=== PATIENT | female | born 1980 | race Caucasian/White ===

== ENCOUNTER → 2018-01-21 10:46 | Outpatient (REF) | payer MEDICAID, SELFPAY ==
[2018-01-21 21:21] LABS: HCT 38.6 % (36.0-46.0); HGB 13.1 g/dL (12.0-15.5); Mean Corp. HGB Concentration 33.9 g/dL (32.0-36.0); Mean Corpuscular Hemoglobin 30.8 pg (27.0-33.0); Mean Corpuscular Volume 90.6 fL (80-95); Mean Platelet Volume 10.2 fL (8.0-11.0); Platelet Count 279 x1000/uL (130-400); RBC 4.26 m/cumm (4.00-5.20); RBC Distribution Width 12.2 % (11.7-14.6); White Blood Cell Count 5.71 k/cumm (4.4-10.8)
[2018-01-21 21:56] LABS: TSH 1.14 uIU/mL (0.358-3.74)
== END ==
LOC: NCHCN 10:46
PROVIDERS: PCP Nurse Practitioner Family; Visit Provider Nurse Practitioner Family
DX: R53.83 Other fatigue (principal)
CPT/HCPCS: 85027; 84443

== ENCOUNTER 2019-01-31 11:08 | Outpatient (REF) | payer MEDICAID, SELFPAY ==
[2019-01-31 22:04] LABS: HCT 39.3 % (36.0-46.0); HGB 13.4 g/dL (12.0-15.5); Mean Corp. HGB Concentration 34.1 g/dL (32.0-36.0); Mean Corpuscular Hemoglobin 30.7 pg (27.0-33.0); Mean Corpuscular Volume 89.9 fL (80-95); Platelet Count 293 x1000/uL (130-400); RBC 4.37 m/cumm (4.00-5.20); RBC Distribution Width 12.3 % (11.7-14.6); White Blood Cell Count 5.17 k/cumm (4.4-10.8)
[2019-01-31 22:35] LABS: ALT 22 U/L (12-78); AST 18 U/L (15-37); Albumin 3.7 g/dL (3.4-5.0); Alkaline Phosphatase 73 U/L (46-116); Anion Gap 9.1 mmol/L (3-11); BUN 11 mg/dL (7-18); Bilirubin, Total 0.2 mg/dL (0.2-1.0); CO2 25.9 mmol/L (21.0-32.0); CREATININE 0.76 mg/dL (0.55-1.02); Calcium 8.4 mg/dL (8.5-10.1); Calculated LDL 90 mg/dL; Chloride 105 mmol/L (98-107); Cholesterol 150 mg/dL (50-200); Glucose 78 mg/dL (70-100); HDL Cholesterol 50 mg/dL (40-60); Potassium 3.9 mmol/L (3.5-5.1); Sodium 140 mmol/L (136-145); TSH 1.96 uIU/mL (0.36-3.74); Triglyceride 51 mg/dL (30-150)
== END 2019-01-31 11:28 ==
LOC: NCHCN 11:08
PROVIDERS: PCP Nurse Practitioner Family; Visit Provider Nurse Practitioner Family
DX: R53.83 Other fatigue (principal); Z83.49 Family history of other endocrine, nutritional and metabolic diseases
CPT/HCPCS: 80053; 80061; 83721; 85027; 84443

== ENCOUNTER 2020-09-24 12:58 | Outpatient (REF) | payer MEDICAID, SELFPAY ==
[2020-09-24 14:09] LABS: TSH (W/Ref FT4) 1.98 uIU/mL (0.36-3.74)
[2020-09-24 14:18] LABS: Vitamin D 25 Total 22.5 ng/mL (30-100)
== END 2020-09-24 12:59 | disposition home or self-care (01) ==
LOC: NCHCN 12:58
PROVIDERS: PCP Nurse Practitioner Family; Visit Provider Nurse Practitioner Family
DX: R53.83 Other fatigue (principal); M79.10 Myalgia, unspecified site; E55.9 Vitamin D deficiency, unspecified
CPT/HCPCS: 82306; 84443

== ENCOUNTER 2020-10-30 13:24 | Outpatient (REF) | payer MEDICAID, SELFPAY ==
[2020-10-31 11:02] LABS: HIV-1/2 Ag & Ab Screen Negative (Negative)
[2020-10-31 11:18] LABS: Hepatitis C Ab w Rflx HCV PCR Negative (Negative)
[2020-11-01 01:10] LABS: Vitamin D 25 Total 27.7 ng/mL (30-100)
== END 2020-10-30 13:25 | disposition home or self-care (01) ==
LOC: NCHCN 13:24
PROVIDERS: PCP Nurse Practitioner Family; Visit Provider Nurse Practitioner Family
DX: E55.9 Vitamin D deficiency, unspecified (principal); Z11.59 Encounter for screening for other viral diseases; Z11.4 Encounter for screening for human immunodeficiency virus [HIV]
CPT/HCPCS: 82306; 86803; 87389

== ENCOUNTER 2021-02-26 16:33 | Outpatient (REF) | payer MEDICAID, SELFPAY ==
--- NOTE | 2021-02-26 13:45 | PAPFT_PTH ---
PATIENT: Cathy Chow LOC: [facility]#:[id number] AGE/SX: 41/F ROOM: RE02/26/[address]: Shadia Garcia : 1980 BED: DIS: 02/26/2021 SPEC #: [id number] RECD: 02/27/21 12:56 STATUS: NICOLLE REDee #: [id number] DARON: 02/26/21 13:[address]: Shadia Garcia [facility] Cytology RECD BY: Tonia Garibay Tissues: 1 - CX/ENDOCX FOR PAP SMEARS Procedures: PAP THIN PREP/UVM Screening HPV DNA PROBE Comments: [id number]
[2021-02-26 21:34] LABS: Hemoglobin A1C 5.2 % (<5.7)
[2021-02-28 01:33] LABS: Vitamin D 25 Total 43.5 ng/mL (30-100)
== END 2021-02-26 16:34 | disposition home or self-care (01) ==
LOC: NCHCN 16:33
PROVIDERS: PCP Nurse Practitioner Family; Referring Provider Nurse Practitioner Family; Visit Provider Nurse Practitioner Family
DX: E55.9 Vitamin D deficiency, unspecified (principal); R63.1 Polydipsia; R35.8 Other polyuria; Z12.4 Encounter for screening for malignant neoplasm of cervix; Z01.419 Encounter for gynecological examination (general) (routine) without abnormal findings; Z11.51 Encounter for screening for human papillomavirus (HPV)
CPT/HCPCS: 82306; 88142; 83036; 87624

== ENCOUNTER 2021-03-28 11:47 | Outpatient (REF) | payer MEDICAID, SELFPAY ==
[2021-03-28 14:26] LABS: Abs Immature Grans 0.01 10^3/uL (0.0-0.06); Absolute Basophil Count 0.06 10^3/uL (0.0-0.2); Absolute Eosinophil Count 0.23 10^3/uL (0.0-0.7); Absolute Lymphocyte Count 2.08 10^3/uL (1.2-3.4); Absolute Monocyte Count 0.39 10^3/uL (0.1-0.8); Absolute Neutrophil Count 3.65 10^3/uL (1.2-6.7); Basophils % 0.9; Eosinophils % 3.6; HCT 43.6 % (36.0-46.0); HGB 14.4 g/dL (11.2-15.7); Immature Grans % 0.2; Lymphocytes % 32.4; MCV 90.8 fL (80-95); MPV 9.5 fL (8.0-11.0); Monocytes % 6.1; Neutrophils % 56.8; Nucleated RBC 0 %; Platelet Count 321 10^3/uL (130-400); RDW 12.1 % (11.7-14.6); RDW-SD 40.4 fL; WBC 6.42 10^3/uL (4.4-10.8)
[2021-03-28 14:46] LABS: Lipase 91 U/L (73-393)
[2021-03-28 15:01] LABS: Bilirubin Negative (Negative); Blood Negative (Negative); Clarity Clear (Clear); Glucose Negative (Negative); Ketones Negative (Negative); Leukocyte Esterase Negative (Negative); Nitrite Negative (Negative); Specific Gravity 1.015 (1.005-1.025); Urobilinogen 0.2 EU/dL (Up TO 0.2)
[2021-03-29 19:06] LABS: ALT 25 U/L (14-59); AST 18 U/L (15-37); Albumin 4.2 g/dL (3.4-5.0); Alkaline Phosphatase 82 U/L (46-116); Anion Gap 7.6 mmol/L (3-11); BUN 11 mg/dL (7-18); Bilirubin, Total 0.3 mg/dL (0.2-1.0); CO2 29.4 mmol/L (21.0-32.0); CREATININE 0.8 mg/dL (0.55-1.02); Calcium 9.2 mg/dL (8.5-10.1); Chloride 104 mmol/L (98-107); Glucose 76 mg/dL (74-106); Potassium 3.9 mmol/L (3.5-5.1); Sodium 141 mmol/L (136-145); Total Protein 7.8 g/dL (6.4-8.2)
== END 2021-03-28 11:48 | disposition home or self-care (01) ==
LOC: NCHCN 11:47
PROVIDERS: PCP Nurse Practitioner Family; Visit Provider Nurse Practitioner Family
DX: R10.30 Lower abdominal pain, unspecified (principal)
CPT/HCPCS: 80053; 83690; 81003; 85025

== ENCOUNTER 2023-11-30 16:19 | Outpatient (REF) | payer MEDICAID, SELFPAY ==
[2023-11-30 21:33] LABS: Abs Immature Grans 0.01 10^3/uL (0.0-0.06); Absolute Basophil Count 0.06 10^3/uL (0.0-0.2); Absolute Eosinophil Count 0.16 10^3/uL (0.0-0.7); Absolute Lymphocyte Count 1.97 10^3/uL (1.2-3.4); Absolute Monocyte Count 0.47 10^3/uL (0.1-0.8); Absolute Neutrophil Count 4.84 10^3/uL (1.2-6.7); Basophils % 0.8 %; Eosinophils % 2.1 %; HCT 42.5 % (36.0-46.0); HGB 14.6 g/dL (11.2-15.7); Immature Grans % 0.1 %; Lymphocytes % 26.2 %; MCH 30.4 pg (27.0-33.0); MCHC 34.4 % (32.0-36.0); MCV 89 fL (80-95); Monocytes % 6.3 %; Neutrophils % 64.5 %; RDW 12.2 % (11.7-14.6); RDW-SD 39.8 fL; WBC 7.51 10^3/uL (4.4-10.8)
[2023-11-30 21:42] LABS: C-Reactive Protein < 0.50 mg/dL (<or=0.5)
== END 2023-11-30 16:20 | disposition home or self-care (01) ==
LOC: NCHCN 16:19
PROVIDERS: PCP Nurse Practitioner Family; Visit Provider Internal Medicine
DX: M25.551 Pain in right hip (principal)
CPT/HCPCS: 85025; 86140

== ENCOUNTER 2024-03-07 15:05 | Outpatient (REF) | payer MEDICAID, SELFPAY ==
--- OUTSIDE RECORDS SUMMARY | 2024-03-07 15:08 | XMS_ITS | Encounter Summary ---
Author Organization [facility] Address [address] [place] [address] Care Team Providers Care Economic Development Manager Name Role Phone Ricardo Candelario MD Primary Care Provider [phone] Reason for Visit * Reason Onset Date Comments Other 03/03/2011 Encounter Details Date Type Department Care Team (Late st Contact Info) Description 03/03/2011 Telephone [facility] Dermatology 5th [address] [address] Nyasia Guthrie MD [address] [place] [address], [address] [place] [address] Other Social History Tobacco Use Types Packs/Day Years Used Date Smoking Tobacco: Former Alcohol Use Standard Drinks/Week Comments No 0 (1 standard drink = 0.6 oz pur e alcohol) Comments Yes Sex and Gender Information Value Date Recorded Sex Assigned at Not on file Gender Identity Female 07/31/2021 7:58 EST Sexual Orientation Not on file documented as of this encounter Miscellaneous Notes * Telephone Encounter - Nyasia Guthrie MD - 03/03/2011 1416 EDT I spoke with Dr. Mukherjee about Cathy's situation, which seems to be improving after 2 days of theclindamycin. We will continue her on this unless the cultures dictate otherwise. He will attempt todelay her for a week, barring early labor. He will touch base with Cathy and I will update him with any changes in the culture status. Nyasia Guthrie MD documented in this encounter Plan of Treatment Not on file documented as of this encounter Visit Diagnoses Not on filedocumented in this encounter Care Teams Economic Development Manager Relationship Specialty Start Date End Date Ricardo Candelario MD [address] [facility] [address] [place] [phone] PCP - General 02/27/11 09/08/18 documented as of this encounter
--- OUTSIDE RECORDS SUMMARY | 2024-03-07 15:08 | XMS_ITS | Encounter Summary ---
Author Organization [facility] Address [address] [place] [address] Care Team Providers Care Technical Operator Name Role Phone Ricardo Candelario MD Primary Care Provider [phone] Encounter Details Date Type Department Care Team (Latest Contact Info) Description 02/25/2012 9:02 EDT - 02/25/2012 23:59 EDT Hospital Encounter [facility] [address] [place] [address] Leander Beauchamp MD [address] [place] [phone] Discharge Disposition: Home or Self Care Social History Tobacco Use Types Packs/Day Years Used Date Smoking Tobacco: Former Alcohol Use Standard Drinks/Week Comments No 0 (1 standard drink = 0.6 oz pur e alcohol) Comments Yes Sex and Gender Information Value Date Recorded Sex Assigned at Not on file Gender Identity Female 07/31/2021 7:58 EST Sexual Orientation Not on file documented as of this encounter Medications at Time of Discharge Medication Sig Dispensed Refills Start Date End Date gabapentin (NEURONTIN) 300 mg capsule Take 300 mg by mouth 3 times daily. 10/04/2014 documented as of this encounter Discharge Disposition Disposition Code Departure Means Destination Home or Self Fdc documented in this encounter Plan of Treatment Not on file documented as of this encounter Visit Diagnoses Not on filedocumented in this encounter Care Teams Technical Operator Relationship Specialty Start Date End Date Ricardo Candelario MD [address] [place] [phone] PCP - General 02/27/11 09/08/18 documented as of this encounter
--- OUTSIDE RECORDS SUMMARY | 2024-03-07 15:08 | XMS_ITS | Encounter Summary ---
Author Organization [facility] Address [address] [place] [address] Care Team Providers Care Time Stamp Assembler Name Role Phone Ricardo Candelario MD Primary Care Provider Reason for Referral * Consult, Test and Treat (Routine) - Specialty Report Received Specialty Diagnoses / Procedures [facility]erred To Contact Diagnoses Dysphagia, unspecified(787.20) Procedures UPPER ENDOSCOPY Christopher German MD [address] [place] [phone] Referral ID Status Reason Start Date Expiration Date V isits Requested Visits Authorized [id number] Specialty Report Received 10/05/2014 1 1 Reason for Visit * Reason Comments New Patient Visit dysphagia * Consult (Routine) - Closed Specialty Diagnoses / Procedures Referred By Contact Referred To Contact Gastroenterology and Hepatology Diagnoses Dysphagia Ricardo Candelario MD [address] [facility] [address] [place] [address] Christopher German MD [address] [place] [phone] Referral ID Status Reason Start Date Expiration Date Visits Re quested Visits Authorized [id number] Closed 1 1 Encounter Details Date Type Department Care Team (Late st Contact Info) Description 10/04/2014 10:40 EDT Office Visit [facility] Gastroenterology - [address] [address] Christopher German MD [address] [place] [address], [address] 5 [place] [address] Dysphagia, unspecified(787.20 ) (Primary Dx) Discharge Disposition: Auto Discharge Social History Tobacco Use Types Packs/Day Years Used Date Smoking Tobacco: Former Alcohol Use Standard Drinks/Week Comments No 0 (1 standard drink = 0.6 oz pur e alcohol) Comments Yes Sex and Gender Information Value Date Recorded Sex Assigned at Not on file Gender Identity Female 07/31/2021 7:58 EST Sexual Orientation Not on file documented as of this encounter Last Filed Vital Signs Vital Sign Reading Time Taken Comments Blood Pressure 108/74 10/04/2014 1053 EDT Pulse 56 10/04/2014 1053 EDT Temperature - - Respiratory Rate - - Oxygen Saturation - - Inhaled Oxygen Concentration - - Weight 58.1 kg (128 lb) 10/04/2014 1053 EDT Height 154.3 cm (5' 0.75) 10/04/2014 1053 EDT Body Mass Index 24.38 10/04/2014 1053 EDT documented in this encounter Discharge Diagnoses Diagnosis 787.20 DYSPHAGIA, UNSPECIFIED[ICD-9-CM] documented in this encounter Discharge Disposition Disposition Code Departure Means Destination Auto Discharge documented in this encounter Progress Notes * Christopher German MD - 10/04/2014 1108 EDT Subjective: Patient ID: Cathy Chow is an 34 y.o. female. Chief Complaint Patient presents with ??? New Patient Visit dysphagia HPI Comments: Ms. Chow is seen in the GI office at the request of Dr. Candelario for consultation for dysphagia. She has been having some dysphagia and GERD like symptoms for a couple of years. Had initially seen Dr. Walls and had and EGD. Was diagnosed with h pylori and treated and told she had reflux. Unclear if any esophageal biopsies were obtained. Has been on omeprazole but continues to have dysphagia. This is mostly to solid foods. She will occasionally have to cough food up that gets stuck, or drink excess water to clear the food. No known allergies, but has been having a cough and red eyes for the past few months. No other medical problems. Patient Active Problem List Diagnosis ??? 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 Varicella Past Surgical History Procedure Laterality Date ??? Abdomen surgery History reviewed. No pertinent family history. Social History Substance Use Topics ??? Smoking status: Former Smoker ??? Smokeless tobacco: Not on file ??? Alcohol Use: No No current outpatient prescriptions on file prior to visit. No current facility-administered medications on file prior to visit. No Known Allergies Review of Systems Respiratory: Positive for cough. Gastrointestinal: Positive for heartburn. All other systems reviewed and are negative. - See HPI Objective: BP 108/74 Pulse 56 Ht 154.3 cm (60.75) Wt 58.06 kg (128 lb) BMI 24.39 kg/m2 Physical Exam Alert and oriented, no distress Sclera anicteric, mucous membranes moist Heart regular rate and rhythm Lungs clear to auscultation bilaterally Abdomen soft and non-tender, no masses, hepatomegally Extremities without rash or edema Assessment: Dysphagia to solids, with possible allergies. Could represent eosinophilic esophagitis. Will repeather EGD with esophageal biopsies to look for EoE or a possible stricture. Plan: -EGD Christopher German MD documented in this encounter Plan of Treatment Scheduled Orders Name Type Priority Associated Diagnoses Orde r Schedule UPPER ENDOSCOPY GI Routine Dysphagia, unspecified(787.20) Expected: 10/05/2014 documented as of this encounter Visit Diagnoses Diagnosis Dysphagia, unspecified(787.20)- Primary Dysphagia, unspecified documented in this encounter Discontinued Medications Medication Sig Discontinue Reason Start Date End Da te gabapentin (NEURONTIN) 300 mg capsule Take 300 mg by mouth 3 times daily. Patient Stopped Taking 10/04/2014 documented as of this encounter Historical Medications * This list may reflect changes made after this encounter. Medication Sig Dispensed Refills Start Date End Date KETOTIFEN FUMARATE (ALLERGY EYE, KETOTIFEN, OPHTHALMIC) Apply 1 Drop to eye fluticasone (FLONASE) 50 mcg/actuation nasal spray Instill 50 mcg into both nostrils daily omeprazole (PRILOSEC) 20 mg capsule Take 20 mg by mouth 2 times daily 05/21/2015 added in this encounter Care Teams Time Stamp Assembler Relationship Specialty Start Date End Date Ricardo Candelario MD [address] [place] [address] PCP - General 02/27/11 09/08/18 documented as of this encounter
--- OUTSIDE RECORDS SUMMARY | 2024-03-07 15:08 | XMS_ITS | Encounter Summary ---
Author Organization [facility] Address [address] [place] [address] Care Team Providers Care Business Support Assistant Name Role Phone Myla Garciaily Sincere ELLER Primary Care Provider [phone] Encounter Details Date Type Department Care Team (Late st Contact Info) Description 10/30/2020 Lab Requisition [facility] Pathology & Laboratory Medicine - [address] [address] Outr Resulting Lab, Provider Social History Tobacco Use Types Packs/Day Years Used Date Smoking Tobacco: Former Cigarettes Q uit: 04/05/2000 Smokeless Tobacco: Never Alcohol Use Standard Drinks/Week Comments No 0 (1 standard drink = 0.6 oz pur e alcohol) Interpersonal Safety Answer Date Record ed Physically Hurt Never 01/22/2020 Verbally Threaten Not on file 01/22/2020 Sex and Gender Information Value Date Recorded Sex Assigned at Not on file Gender Identity Female 07/31/2021 7:58 EST Sexual Orientation Not on file documented as of this encounter Functional Status Functional Status Response Date of Assess ment Because of a physical, menta l, or emotional condition, does this person have difficulty doing errands alone such as visiting a doctor's office or shopping? No 03/07/2015 Cognitive Status Response Date of Assessm ent Because of a physical, menta l, or emotional condition, does this person have serious difficulty concentrating, remembering, or making decisions? No 03/07/2015 documented as of this encounter Plan of Treatment Not on file documented as of this encounter Procedures Procedure Name Priority Date/Time Associated Diagnosis Comments HEPATITIS C AB W REFLEX TO HCV RNA BY PCR Routine 10/30/2020 10:35 EDT documented in this encounter Results * HEPATITIS C AB W REFLEX TO HCV RNA BY PCR (10/30/2020 10:35 EDT) Hep C Antibody Negative Negative 10/31/2020 11:13 EDT [facility] Blood VENOUS BLOOD / Unknown 10/30/2020 10:35 EDT 10/30/2020 21:31 EDT Provider Outr Resulting Lab CHEMISTRY & BLOOD GAS ORDERABLES [facility] [address] [place] [address] documented in this encounter Visit Diagnoses Not on filedocumented in this encounter Care Teams Business Support Assistant Relationship Specialty Start Date End Date Shadia Garcia APRN [address] [place] [phone] PCP - General 09/09/18 documented as of this encounter
--- OUTSIDE RECORDS SUMMARY | 2024-03-07 15:08 | XMS_ITS | Encounter Summary ---
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 Leander Beauchamp MD [address] [place] [phone] [facility] [address] [place] [phone] Referral ID Status Reason Start Date Expiration Date V isits Requested Visits Authorized [id number] Closed Specialty Services Required 04/12/2012 1 1 Question Answer Reason for Request: janett r long Date of Onset or Injury: 7 wks Comments Mobilization and new night splint Reason for Visit * Reason Comments Hand Problem right ring mallet fi nger DOI 8-24-12 Encounter Details Date Type Department Care Team (Late st Contact Info) Description 04/12/2012 10:30 EDT Office Visit [facility] Hand & Upper Extremity Program - [address] [address] Leander Beauchamp MD [address] [place] [phone] 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 SUBJECTIVE: Ms Chow was seen in our office on 02/26 with a mallet for which she has been splinted. She is in today for followup. Out of splint today, which is a wooden splint, because she just last week misplaced her loaner splint. She has slight residual deformity, not bad, and is starting motion but is stiff as one might expect. ASSESSMENT: She has done well. PLAN: We will refer her to therapy to begin mobilization and get a new nighttime splint. I will seeher only as needed. 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
--- OUTSIDE RECORDS SUMMARY | 2024-03-07 15:08 | XMS_ITS | Encounter Summary ---
Author Organization [facility] Address [address] [place] [address] Care Team Providers Care Primary Care Physician Name Role Phone Shadia Garcia DAPHNIE Primary Care Provider [phone] Encounter Details Date Type Department Care Team (Late st Contact Info) Description 05/07/2021 Orders Only [facility] Gastroenterology - [address] [address] Ash Villagomez MD PhD [address] [place] [address], [address] [place] [address] Encounter for preprocedure screening laboratory testing for COVID-19 (Primary Dx) Social History Tobacco Use Types Packs/Day Years [...] No 03/07/2015 documented as of this encounter Progress Notes * Elvia Yeboah, RN - 05/07/2021 1441 EST Covid test ordered pre-procedure for Esophageal PH probe cheduled on 07/31/20 . documented in this encounter Plan of Treatment Not on file documented as of this encounter Visit Diagnoses Diagnosis Encounter for preprocedure screening laboratory testing for COVID-19- Primary documented in this encounter Care Teams Primary Care Physician Relationship Specialty Start Date End Date Shadia Garcia APRN [address] [place] [phone] PCP - General 09/09/18 documented as of this encounter
--- OUTSIDE RECORDS SUMMARY | 2024-03-07 15:08 | XMS_ITS | Encounter Summary ---
Author Organization [facility] Address [address] [place] [address] Care Team Providers Care Shale Miner Name Role Phone Shadia Garcia DAPHNIE Primary Care Provider [phone] Reason for Visit * Reason Onset Date Comments Emesis 07/31/2021 Patient had a PH Probe placed this am and has been vomiting since, tried crackers but couldn't get them down. Encounter Details Date Type Department Care Team (Late st Contact Info) Description 07/31/2021 Telephone [facility] Gastroenterology - [facility] [address] [place], [place] [id number] Ash Villagomez MD PhD [address] [facility], [address] [place] [address] Emesis (Patient had a PH Probe placed this am and has been vomiting since, tried crackers but couldn't get them down.) Social History Tobacco Use Types Packs/Day Years [...] 7:58 EST Sexual Orientation Not on file COVID-19 Exposure Response Date Recorded In the last month, have you been in contact with someone who was confirmed or suspected to have Coronavirus / COVID-19? No / Unsure 07/31/2021 8:26 EST documented as of this encounter Functional Status [...] No 03/07/2015 documented as of this encounter Miscellaneous Notes * Telephone Encounter - Elvia Yeboah RN - 08/01/2021 1051 EST Called to patient. Informed she was tolerating and retaining jello, puddings and had toast this morning. Slept well and feels much better today. No questions remain. * Telephone Encounter - Elvia Yeboah RN - 07/31/2021 1534 EST Returned call to patient, States she has had 3 episodes of nausea and vomiting since PH probe placed, slight headache and diarrhea. Encouraged slow PO intake and rest. Also encouraged to seek local ED treatment for worsening symptoms or other concerns. Verbalized understanding. No questions remain. documented in this encounter Plan of Treatment Not on file documented as of this encounter Visit Diagnoses Not on filedocumented in this encounter Care Teams Shale Miner Relationship Specialty Start Date End Date Shadia Garcia APRN [address] [place] [phone] PCP - General 09/09/18 documented as of this encounter
--- OUTSIDE RECORDS SUMMARY | 2024-03-07 15:08 | XMS_ITS | Encounter Summary ---
Author Organization [facility] Address [address] [place] [address] Care Team Providers Care Gore Cutter Name Role Phone Ricardo Candelario MD Primary Care Provider [phone] Encounter Details Date Type Department Care Team (Late st Contact Info) Description 04/05/2015 8:06 EDT - 04/05/2015 11:00 EDT Hospital Encounter [facility] Out[facility] [address] [place] [address] Ash Villagomez MD PhD [address] [facility] [address] [place] [phone] Dysphagia, unspecified dysphagia Discharge Disposition: Home or Self Care Social History Tobacco Use Types Packs/Day Years Used Date Smoking Tobacco: Former Cigarettes Q uit: 04/05/2000 Alcohol Use Standard Drinks/Week Comments No 0 (1 standard drink = 0.6 oz pur e alcohol) Sex and Gender Information Value Date Recorded Sex Assigned at Not on file Gender Identity Female 07/31/2021 7:58 EST Sexual Orientation Not on file documented as of this encounter Last Filed Vital Signs Vital Sign Reading Time Taken Comments Blood Pressure 105/62 04/05/2015 0834 EDT Pulse - - Temperature 35.9 ??C (96.6 ??F) 04/05/2015 0834 EDT Respiratory Rate 16 04/05/2015 0834 EDT Oxygen Saturation 100% 04/05/2015 0910 EDT Inhaled Oxygen Concentration - - Weight 57.6 kg (127 lb) 04/05/2015 0832 EDT Height 152.4 cm (5') 04/05/2015 0832 EDT Body Mass Index 24.8 04/05/2015 0832 EDT documented in this encounter Functional Status Functional Status Response [...] No 03/07/2015 documented as of this encounter Medications at Time of Discharge Medication Sig Dispensed Refills Start Date End Date fluticasone (FLONASE) 50 mcg/actuation nasal spray Instill 50 mcg into both nostrils daily KETOTIFEN FUMARATE (ALLERGY EYE, KETOTIFEN, OPHTHALMIC) Apply 1 Drop to eye omeprazole (PRILOSEC) 20 mg capsule Take 20 mg by mouth 2 times daily 05/21/2015 documented as of this encounter Discharge Disposition Disposition Code Departure Means Destination Home or Self Care documented in this encounter Progress Notes * Ash Villagomez MD - 04/05/2015 0938 EDT Esophageal manometry performed - esophageal motility normal. Ash Villagomez MD documented in this encounter Plan of Treatment Not on file documented as of this encounter Procedures Procedure Name Priority Date/Time Associated Diagnosis Comments PROCEDURE REPORTS - SCANNED 04/06/2015 8:06 EDT documented in this encounter Results * PROCEDURE REPORTS - SCANNED (04/06/2015 8:06 EDT) 04/06/2015 8:06 EDT Scan 2 Nuclear Monitoring Technician PROCEDURE/MINOR LENARD GICAL ORDERABLES documented in this encounter Visit Diagnoses Diagnosis Dysphagia, unspecified dysphagia documented in this encounter Orders Imaging Orders Without Results Count Last Order ed Date First Ordered Date ESOPHAGEAL MANOMETRY 1 04/05/2015 Transfer Count Last Ordered Date First Orde red Date NOTIFY PPS OF DISCHARGE COMPLETE 1 04/05/20 15 documented in this encounter Care Teams Gore Cutter Relationship Specialty Start Date End Date Ricardo Candelario MD [address] [place] [address] PCP - General 02/27/11 09/08/18 documented as of this encounter
--- OUTSIDE RECORDS SUMMARY | 2024-03-07 15:08 | XMS_ITS | Encounter Summary ---
Author Organization [facility] Address [address] [place] [address] Care Team Providers Care Manager Of Application Development Name Role Phone Edgard Candelario MD Primary Care Provider [phone] Encounter Details Date Type Department Care Team (Late st Contact Info) Description 12/01/2014 11:21 EDT - 12/01/2014 14:18 EDT Hospital Encounter [facility] Endoscopy Outpatient [address] [place] [address] Tarik Rene MD 111 [facility] [address] [place] [phone] Discharge Disposition: Home or Self Care Social [...] Sign Reading Time Taken Comments Blood Pressure 108/64 12/01/2014 1321 EDT Pulse - - Temperature 35.5 ??C (95.9 ??F) 12/01/2014 1200 EDT Respiratory Rate 16 12/01/2014 1321 EDT Oxygen Saturation 98% 12/01/2014 1321 EDT Inhaled Oxygen Concentration - - Weight 57.6 kg (127 lb) 12/01/2014 1155 EDT Height 152.4 cm (5') 12/01/2014 1155 EDT Body Mass Index 24.8 12/01/2014 1155 EDT documented in this encounter Medications at Time of Discharge [...] or Self Care documented in this encounter H&P Notes * Tarik Rene MD - 12/01/2014 1230 EDT Endoscopy Sedation for Procedure History & Physical Date: 12/01/2014 Time: 12:30 Location: 4 Endo Planned Procedure: Gastroscopy Chief Complaint/Indications for Procedure: dysphagia, feeling throat constriction, abd pain History Previous Complication with Sedation and/or Anesthesia? No Allergies: Allergies Allergen Reactions ??? Bovine Complex Swelling of throat Current Medications: Current Outpatient Prescriptions Medication Sig Dispense Refill ??? fluticasone (FLONASE) 50 mcg/actuation nasal spray Instill 50 mcg into both nostrils daily ??? KETOTIFEN FUMARATE (ALLERGY EYE, KETOTIFEN, OPHTHALMIC) Apply 1 Drop to eye ??? omeprazole (PRILOSEC) 20 mg capsule Take 20 mg by mouth daily Current Facility-Administered Medications Medication Route Frequency ??? lactated ringers (LR) infusion intravenous CONTINUOUS ??? meperidine (PF) (DEMEROL) 100 mg/mL injection 25-200 mg intravenous Once PRN ??? midazolam (PF) (VERSED) 1 mg/mL injection 1-10 mg intravenous Once PRN ??? sodium chloride 0.9 % (NS) infusion intravenous CONTINUOUS Past Medical History: Past Medical History Diagnosis Date ??? Varicella ??? GERD (gastroesophageal reflux disease) Social History: Past Surgical History Procedure Laterality Date ??? Abdomen surgery History Substance Use Topics ??? Smoking status: Former Smoker ??? Smokeless tobacco: Not on file ??? Alcohol Use: No Family History: History reviewed. No pertinent family history. Review of Systems as pertinent: Physical Exam Vital Signs: BP 98/68 Temp(Src) 35.5 ??C (95.9 ??F) Resp 15 Ht 152.4 cm (60) Wt 57.607 kg (127 lb) BMI 24.80 kg/m2 SpO2 100% Heart Examination: Cardiac Regularity: Regular Respiratory Examination: Respiratory Pattern: Regular Breath Sounds Right: Clear Breath Sounds Left: Clear Abdominal Examination: Soft, non-tender, bowel sounds normal, no masses, no organomegaly Additional physical exam related to the proposed procedure, patient activity, disease state and treatment as pertinent: Assessment Previous complications with sedation or anesthesia?: No Airway Concerns: None Anesthesia Classification: ASA 2 Plan: Proceed with sedation for procedure Fasting Time: Time of last liquid intake: 529 Date of Last Liquid Intake: 12/01/14 Time of last solid intake: 1999 Date of last solid intake: 11/30/14 Patient Appropriate Candidate for Planned Sedation?: Yes Tarik Rene MD 12/01/2014 12:30 documented in this encounter Plan of Treatment Not on file documented as of this encounter Procedures Procedure Name Priority Date/Time Associated Diagnosis Comments PROCEDURE REPORTS - SCANNED 12/02/2014 0:35 EDT SURGICAL PATHOLOGY Routine 12/01/2014 15 :16 EDT COMPLETE BLOOD COUNT AND DIFFERENTIAL Routine 12/01/2014 13:00 EDT documented in this encounter Results * PROCEDURE REPORTS - SCANNED (12/02/2014 0:35 EDT) 12/02/2014 0:35 EDT Scan 2 Track Announcer PROCEDURE/MINOR LENARD GICAL ORDERABLES * SURGICAL PATHOLOGY (12/01/2014 15:16 EDT) Pathology Report: SURGICAL PATHOLOGY REPORT Reports generated via electronic interface contain original data; however they are lacking the format of the original report. Caution should be taken when reading/interpretin g unformatted reports. Name: ? ZENY CHOW ? Accession #: ? [id number] ? : ? 1980 (Age: 34) ??F ? Collect Date: ? 12/01/2014 ? Location: ? ENDOP ? Receive Date: ? 12/01/2014 ? Provider: TARIK RENE MD Copy to: EDGARD CANDELARIO MD ? Final Pathologic Diagnosis: A. GASTROESOPHAGEAL JUNCTION, BIOPSY: - ??Cardia-oxyntic type mucosa with mild chronic inflammation; otherwise unremarkable. - ??No squamous epithelium is present. B. ESOPHAGUS, DISTAL, BIOPSY: - ??Squamous mucosa with histologic features of reflux esophagitis. C. ESOPHAGUS, PROXIMAL, BIOPSY: - ??Reactive squamous mucosa with no diagnostic abnormality. Document reviewed and electronically signed by: DEBRA CHOWDHURY MD Report ??Date: 12/05/2014 09:48 By the signature above, the attending physician certifies that he/she has personally conducted a gross and/or microscopic examination of the described specimens and rendered or confirmed the above diagnosis. Specimen(s) Received: A. ??GE junction B. ??Distal esophagus C. ??Proximal esophagus Clinical History: Dysphagia; abdominal pain; ? Lucio's Gross Description: A. ?Received in formalin labelled with proper patient identification (initials G, A) and GE junction are two pink-nelson tissues (0.4 x 0.2 x 0.2 cm and 0.2 x 0.1 x 0.1 cm). Entirely submitted in A1. B. ?Received in formalin labelled with proper patient identification (initials G, A) and distal esophagus are two pink-nelson tissues (0.4 x 0.2 x 0.1 cm and 0.3 x 0.2 x 0.1 cm). Entirely submitted in B1. C. ?Received in formalin labelled with proper patient identification (initials G, A) and proximal esophagus are two pink-nelson tissues (0.4 x 0.2 x 0.2 cm and 0.3 x 0.2 x 0.1 cm). Entirely submitted in C1. Dr. Carrillo 12/01/2014 06:47 PM End of Report [facility] 12/01/2014 15:1 6 EDT 12/01/2014 15:16 EDT Tarik Rene MD PATHOLOGY ORDERABL ES [facility] [address] [place] [address] * (ABNORMAL) HEMAGRAM AND DIFFERENTIAL (12/01/2014 13:00 EDT) WBC 7.12 4.0 - 12.4 K/cmm 12/01/2014 13:32 [facility] RBC 4.36 3.86 - 5.04 M/cmm 12/01/2014 13:32 [facility] Hemoglobin 13.3 11.6 - 15.2 gm/dl 12/01/2014 13:32 [facility] HCT 37.9 34.9 - 44.4 % 12/01/2014 13:32 [facility] MCV 87 81 - 98 fl 12/01/2014 13:32 [facility] MCH 30.5 26.7 - 33.3 pg 12/01/2014 13:32 [facility] MCHC 35.1 32.1 - 35.9 gm/dl 12/01/2014 13:32 [facility] RDW-CV 12.7 11.7 - 14.6 % 12/01/2014 13:32 [facility] RDW-SD 38.5 37.6 - 50.3 fl 12/01/2014 13:32 [facility] PLT 242 141 - 320 K/cmm 12/01/2014 13:32 [facility] MPV 7.2(L) 7.5 - 11.2 fl 12/01/2014 13:32 [facility] % Neutrophils 62.5 45.5 - 79.7 % 12/01/2014 13:32 [facility] % Lymphocytes 27.8 15.0 - 46.8 % 12/01/2014 13:32 [facility] % Monocytes 7.5 1.8 - 12.0 % 12/01/2014 13:32 [facility] % Eosinophils 1.1 0.6 - 6.9 % 12/01/2014 13:32 [facility] % Basophils 1.1 0.2 - 1.4 % 12/01/2014 13:32 [facility] ABS Neutrophils 4.45 2.20 - 8.85 K/cmm 12/01/2014 13:32 [facility] ABS Lymphs 1.98 1.09 - 3.30 K/cmm 12/01/2014 13:32 [facility] ABS Monocytes 0.54 0.1 - 0.8 K/cmm 12/01/2014 13:32 [facility] ABS Eosinophils 0.08 0.03 - 0.61 K/cmm 12/01/2014 13:32 [facility] ABS Basophils 0.08 0.01 - 0.11 K/cmm 12/01/2014 13:32 [facility] Type of Diff: Automated 12/01/2014 13:32 [facility] Blood specimen (specimen) BLOOD SPECIMEN / Unknown 12/01/2014 13:00 EDT 12/01/2014 13:25 EDT Tarik Rene MD PACKAGES & DNA PRO BE ORDERABLES [facility] [address] [place] [address] documented in this encounter Visit Diagnoses Not on filedocumented in this encounter Administered Medications Inactive Administered Medications - up to 3 most recent administrations Medication Order MAR Action Action Date Dose Rate Site lactated ringers (LR) infusion 30 mL/hr, intravenous, CONTINUOUS, Starting on Thu12/01/14 at 1215, Until Thu12/01/14 at 1619, Routine, Preprocedure New Bag 12/01/2014 12:15 EDT 30 mL/hr 30 mL/hr meperidine (PF) (DEMEROL) 100 mg/mL injection 25-200 mg 25-200 mg, intravenous, ONCE PRN, 1 dose, Starting on Thu12/01/14 at 1153, Until Thu12/01/14 at 1300, Other, sedation, Routine, Intraprocedure Given 12/01/2014 13:00 EDT 75 mg midazolam (PF) (VERSED) 1 mg/mL injection 1-10 mg 1-10 mg, intravenous, ONCE PRN, 1 dose, Starting on Thu12/01/14 at 1153, Until Thu12/01/14 at 1301, Sedation, Routine, Intraprocedure Given 12/01/2014 13:01 EDT 4 mg documented in this encounter Orders Medications Ordered That Lester ht Not Have Been Administered Count Last Ordered Date First Ordered Date sodium chloride 0.9 % (NS) infusion 1 12/01 Transfer Count Last Ordered Date First Orde red Date NOTIFY PPS OF DISCHARGE COMPLETE 1 12/02/19 15 Discharge Count Last Ordered Date First Orde red Date DISCHARGE PATIENT 1 12/01/2014 documented in this encounter Care Teams Manager Of Application Development Relationship Specialty Start Date End Date Edgard Candelario MD [address] [place] [address] [place] [phone] PCP - General 02/27/11 09/08/18 documented as of this encounter
--- OUTSIDE RECORDS SUMMARY | 2024-03-07 15:08 | XMS_ITS | Encounter Summary ---
Author Organization [facility] Address [address] [place] [address] Care Team Providers Care Ux Developer Name Role Phone Shadia Garcia DAPHNIE Primary Care Provider [phone] Reason for Visit * Reason Comments New Patient Visit Referred for atopic dermatitis x1 month Encounter Details Date Type Department Care Team (Late st Contact Info) Description 09/09/2018 10:30 EDT Office Visit [facility] Dermatology 3rd Floor [address] [phone] Diaz Linares MD [address] [facility], [address] [place] [address] Dermatitis (Primary Dx) Social History Tobacco Use Types [...] No 03/07/2015 documented as of this encounter Ordered Prescriptions Prescription Sig Dispensed Refills Start Date End Da te triamcinolone (KENALOG) 0.1 % ointment Apply topically to affected area 2 times daily. Do not apply to face, armpit or groin. 454 g 3 09/09/2018 documented in this encounter Progress Notes * Rahat Josue - 09/09/2018 1030 EDT Review of Systems Constitutional: Negative for fatigue, fever and unexpected weight change. HENT: Negative for mouth sores. Eyes: Negative for pain. Respiratory: Negative for cough and shortness of breath. Cardiovascular: Negative for chest pain and palpitations. Gastrointestinal: Negative for abdominal pain, blood in stool, constipation, diarrhea, nausea and vomiting. Genitourinary: Negative for dysuria, frequency and hematuria. Musculoskeletal: Negative for myalgias, joint swelling, arthralgias and muscle stiffness in the morning. Skin: Negative for rash. Neurological: Negative for numbness and headaches. Endo/Heme/Allergies: Does not bruise/bleed easily. Psychiatric/Behavioral: Negative for sleep disturbance. The patient is not nervous/anxious. Rahat Josue 09/09/2018 10:46 * Diaz Linares MD, MD - 09/09/2018 1030 EDT Dermatology Outpatient Clinic Note 09/09/2018 Chief Complaint: History of Present Illness: Patient is a 38 y.o. female who presents for new evaluation and treatment of atopic dermatitis x 1 month. rx prednisone po did not help much (finished course). Skin has been dry. She is under much stress w/ recent move and going through divorce. 2 kids. No rashes/itching. Seen [facility] 2010, dx w/ folliculitis vulva/mons pubis. has a current medication list which includes the following prescription(s): ascorbate calcium, fluticasone, ketotifen fumarate, and omeprazole. See documentation in [facility] for medical, surgical, social and family history, which were reviewed atthis visit. Present medications, allergies, review of systems are also documented and were all reviewed at this visit. EXAM: a/o x 3. NAD Face neck trunk and 4 exts seen Mild xerosis diffusely, scattered excoriations of upper trunk, abdomen, lower legs. Very subtle reddish papular dermatitis changes upper chest, clavicular regions (see pic). No burrows or excoriations at fingerwebs, umbilicus to suggest scabies IMPRESSION & PLAN: # Mild xerotic dermatitis w/ marked itching. Rx liberal emollients, rx tac .1% oint bid prn, rx cerave anti itch w/ pramoxine, bathing instructions rtc prn if worsens or other family members impacted (remain vigilant for scabies) Diaz Linares MD 09/09/2018 10:51 documented in this encounter Plan of Treatment Not on file documented as of this encounter Visit Diagnoses Diagnosis Dermatitis- Primary Contact dermatitis and other eczema, due to unspecified cause documented in this encounter Historical Medications * This list may reflect changes made after this encounter. Medication Sig Dispensed Refills Start Date End Date ascorbate calcium (VITAMIN C ORAL) Take by mouth as needed. added in this encounter Care Teams Ux Developer Relationship Specialty Start Date End Date Shadia Garcia, DAPHNIE [address] [place] [place] [address] PCP - General 09/09/18 documented as of this encounter
--- OUTSIDE RECORDS SUMMARY | 2024-03-07 15:08 | XMS_ITS | Encounter Summary ---
Author Organization [facility] Address [address] [place] [address] Care Team Providers Care Air Pollution Compliance Inspector Name Role Phone Ricardo Candelario MD Primary Care Provider [phone] Encounter Details Date Type Department Care Team (Late st Contact Info) Description 04/13/2012 Abstract [facility] Hand & Upper Extremity Program - [address] [place], [place] [phone] Leander Beauchamp MD [address] [place] [phone] Social History Tobacco Use Types Packs/Day Years Used Date Smoking Tobacco: Former Alcohol Use Standard Drinks/Week Comments No 0 (1 standard drink = 0.6 oz pur e alcohol) Comments Yes Sex and Gender Information Value Date Recorded Sex Assigned at Not on file Gender Identity Female 07/31/2021 7:58 EST Sexual Orientation Not on file documented as of this encounter Plan of Treatment Not on file documented as of this encounter Visit Diagnoses Not on filedocumented in this encounter Care Teams Air Pollution Compliance Inspector Relationship Specialty Start Date End Date Ricardo Candelario MD [address] [place] [address] [address] [place] [phone] PCP - General 02/27/11 09/08/18 documented as of this encounter
--- OUTSIDE RECORDS SUMMARY | 2024-03-07 15:08 | XMS_ITS | Encounter Summary ---
Author Organization [facility] Address [address] [place] [address] Care Team Providers Care Spinning Mule Operator Name Role Phone Ricardo Candelario MD Primary Care Provider [phone] Encounter Details Date Type Department Care Team (Latest Contact Info) Description 04/12/2012 12:03 EDT - 04/12/2012 23:59 EDT Hospital Encounter [facility] [place] [address] [place] [address] Leander Beauchamp MD [address] [place] [phone] Discharge Disposition: Home or Self Care [...] Code Departure Means Destination Home or Self Nursing Home documented in this encounter Plan of Treatment Not on file documented as of this encounter Visit Diagnoses Not on filedocumented in this encounter Care Teams Spinning Mule Operator Relationship Specialty Start Date End Date Ricardo Candelario MD [address] [place] [phone] PCP - General 02/27/11 09/08/18 documented as of this encounter
--- OUTSIDE RECORDS SUMMARY | 2024-03-07 15:08 | XMS_ITS | Encounter Summary ---
Author Organization [facility] Address [address] [place] [address] Care Team Providers Care Gun Club Manager Name Role Phone Ricardo Candelario MD Primary Care Provider [phone] Encounter Details Date Type Department Care Team (Late st Contact Info) Description 05/23/2011 Phlebotomy Only [address] [address] Dip Tube [employer]sembler Machine, Outpatient Social History Tobacco Use Types Packs/Day Years [...] on filedocumented in this encounter Care Teams Gun Club Manager Relationship Specialty Start Date End Date Ricardo Candelario MD [address] [place] [address] [address] [place] [address] PCP - General 02/27/11 09/08/18 documented as of this encounter
--- OUTSIDE RECORDS SUMMARY | 2024-03-07 15:08 | XMS_ITS | Encounter Summary ---
Author Organization [facility] Address [address] [place] [address] Care Team Providers Care Publication Director Name Role Phone JoseShadia Sincere ELLER Primary Care Provider [phone] Reason for Visit * Reason Comments Follow-up PH probe Encounter Details Date Type Department Care Team (Late st Contact Info) Description 09/17/2021 14:20 EDT Office Visit [facility] Gastroenterology - [address] [address] Kenny Kelly MD [address] [place] [address], [address] [place] [address] Dyspepsia (Primary Dx) Social History Tobacco Use Types [...] Sign Reading Time Taken Comments Blood Pressure 113/71 09/17/2021 1405 EDT Pulse 66 09/17/2021 1405 EDT Temperature - - Respiratory Rate - - Oxygen Saturation - - Inhaled Oxygen Concentration - - Weight 61.1 kg (134 lb 12.8 oz) 09/17/2021 1405 EDT Height 154.9 cm (5' 0.98) 09/17/2021 1405 EDT Body Mass Index 25.48 09/17/2021 1405 EDT documented in this encounter Functional Status [...] as of this encounter Progress Notes * Kenny Kelly MD - 09/17/2021 1420 EDT Chief Complaint: No chief complaint on file. History of Present illness: 41 year old with globus and abdominal pain. She has nausea as well, but no vomiting. Her symptoms do not correlate well with eating food. She is not sure if stress worsens her symptoms. She is occasionally awoken with these symptoms at night. Her weight is relatively stable. No rectal bleeding. No constipation or diarrhea. She does not smoke cigarettes or drink alcohol. She has been treated for GERD. This therapy has been escalated to the point that she takes BID pantoprazole and an H2 chepe daily. She has been evaluated by upper endoscopy in [address] Walls. He saw esophageal erythema,but symptoms did not resolve with a PPI. She has had a normal abdominal ultrasound, HIDA scan, abdominopelvic CT. H. Pylori has been negative. She has had 2 c-sections. After her last visit she had apH probe by Dr. Villagomez that showed significant acid exposure, but this exposure did not correlatewith her symptoms. We discussed her symptoms currently. She has abdominal pain not associated with food, itching in her abdomen, chest and back, burning in her chest not necessarily associated with food and thigh pain bilaterally. No rectal bleeding. No fevers or chills. Her symptoms did not improve with a PPI Gastrointestinal ROS: positive for - gas/bloating and heartburn negative for - blood in stools, hematemesis or melena. Physical exam: Vitals: unknown if currently . Gen: No acute distress HEENT: Anicteric; no thyromegally, no lymphadenopathy Chest: Clear to auscultation Heart: Regular rhythm; no murmurs rubs or gallops Abdomen: Soft non-tender, non-distended. Normal bowel sounds. No rebound or guarding. No hepatomegaly or splenomegally appreciated Peripheral: No cyanosis, clubbing or edema Labs: Lab Results Component Value Date ALT 31 03/07/2015 AST 32 03/07/2015 ALKPHOS 68 03/07/2015 Lab Results Component Value Date WBC 6.72 03/07/2015 HGB 14.0 03/07/2015 HCT 41.1 03/07/2015 MCV 89 03/07/2015 PLT 287 03/07/2015 No results found for: AMYLASE Lab Results Component Value Date LIPASE 33 11/15/2005 Impression: I think her symptoms are related to a functional cause and not related to GERD. I do not think referral to surgery for consideration of fundoplication is in her best interest at this time. There is likely also an anxiety component. Plan: 1. I would recommend a trial of amitryptaline 25mg before bed for 3 months for her symptoms. documented in this encounter Plan of Treatment Not on file documented as of this encounter Visit Diagnoses Diagnosis Dyspepsia- Primary Dyspepsia and other specified disorders of function of stomach documented in this encounter Historical Medications * This list may reflect changes made after this encounter. Medication Sig Dispensed Refills Start Date End Date MULTIVITAMIN ORAL Take by mouth. added in this encounter Care Teams Publication Director Relationship Specialty Start Date End Date Shadia Garcia APRN [address] [place] [phone] PCP - General 09/09/18 documented as of this encounter
--- OUTSIDE RECORDS SUMMARY | 2024-03-07 15:08 | XMS_ITS | Encounter Summary ---
Author Organization [facility] Address [address] [place] [address] Care Team Providers Care Trademark Affixer Name Role Phone Shadia Garcia DAPHNIE Primary Care Provider [phone] Reason for Visit * Reason Onset Date Comments Results 08/07/2021 Encounter Details Date Type Department Care Team (Late st Contact Info) Description 08/07/2021 Telephone [facility] Gastroenterology - [address] [address] Ash Villagomez MD PhD [address] [place] [address], [address] [place] [address] Results Social History Tobacco Use Types Packs/Day Years [...] encounter Miscellaneous Notes * Telephone Encounter - Maya Mar - 08/07/2021 0847 EST Requesting results of PH probe documented in this encounter Plan of Treatment Not on file documented as of this encounter Visit Diagnoses Not on filedocumented in this encounter Care Teams Trademark Affixer Relationship Specialty Start Date End Date Shadia Garcia APRN [address] [place] [address] PCP - General 09/09/18 documented as of this encounter
--- OUTSIDE RECORDS SUMMARY | 2024-03-07 15:08 | XMS_ITS | Encounter Summary ---
Author Organization [facility] Address [address] [place] [address] Care Team Providers Care Staff Development Manager Name Role Phone Jose Shadia Sincere ELLER Primary Care Provider Reason for Visit * Test (Routine) - Closed Specialty Diagnoses / Procedures Referred By Contact Referred To Contact Gastroenterology and Hepatology Diagnoses Dyspepsia Procedures ESOPHAGEAL PH PROBE FL GERD TST W/ MUCOS PH ELECTROD Kenny Kelly MD [address] [place] [phone] sAh Villagomez MD PhD [address] [place] [phone] Referral ID Status Reason Start Date Expiration Date Visits Re quested Visits Authorized [id number] Closed 06/21/2022 1 1 Encounter Details Date Type Department Care Team (Late st Contact Info) Description 07/31/2021 7:59 EST - 07/31/2021 23:59 EST Hospital Encounter [facility] Endoscopy - [place] [id number] Ash Villagomez MD PhD [address] [place], [place] [phone] Discharge Disposition: Home or Self Care Social [...] 8:26 EST documented as of this encounter Last Filed Vital Signs Vital Sign Reading Time Taken Comments Blood Pressure 108/73 07/31/2021 0942 EST Pulse - - Temperature 36.5 ??C (97.7 ??F) 07/31/2021 0930 EST Respiratory Rate 15 07/31/2021 0942 EST Oxygen Saturation 97% 07/31/2021 0942 EST Inhaled Oxygen Concentration - - Weight 59 kg (130 lb) 07/31/2021 0823 EST Height 154.9 cm (5' 1) 07/31/2021 0823 EST Body Mass Index 24.56 07/31/2021 0823 EST documented in this encounter Functional Status Functional [...] C ORAL) Take by mouth as needed. famotidine (PEPCID) 40 mg tablet Take 40 mg by mouth daily. 04/23/2021 fluticasone (FLONASE) 50 mcg/actuation nasal spray Instill 50 mcg into both nostrils daily KETOTIFEN FUMARATE (ALLERGY EYE, KETOTIFEN, OPHTHALMIC) Apply 1 Drop to eye omeprazole (PRILOSEC) 20 mg capsule Take 1 Cap by mouth daily 90 Cap 3 05/21/2015 pantoprazole (PROTONIX) 40 mg tablet Take 40 mg by mouth daily. 04/30/2021 triamcinolone (KENALOG) 0.1 % ointment Apply topically to affected area 2 times daily. Do not apply to face, armpit or groin. 454 g 3 09/09/2018 documented as of this encounter Discharge Disposition Disposition Code Departure Means Destination Home or Self Retirement documented in this encounter H&P Notes * Ash Villagomez MD - 07/31/2021 0840 EST Endoscopy Sedation for Procedure History & Physical Date: 07/31/2021 Time: 9:04 Location: [facility] Endoscopy - [facility] Planned Procedure: Esophageal pH Probe Chief Complaint/Indications for Procedure: Dyspepsia History Previous Complication with Sedation and/or Anesthesia? No Allergies: Allergies Allergen Reactions ??? Bovine Complex Swelling of throat Current Medications: Current Outpatient Medications Medication ??? ascorbate calcium (VITAMIN C ORAL) ??? famotidine (PEPCID) 40 mg tablet ??? fluticasone (FLONASE) 50 mcg/actuation nasal spray ??? KETOTIFEN FUMARATE (ALLERGY EYE, KETOTIFEN, OPHTHALMIC) ??? omeprazole (PRILOSEC) 20 mg capsule ??? pantoprazole (PROTONIX) 40 mg tablet ??? triamcinolone (KENALOG) 0.1 % ointment Current Facility-Administered Medications Medication Route Frequency ??? diphenhydrAMINE (BENADRYL) injection 25 mg intravenous Once PRN ??? sodium chloride 0.9 % (NS) infusion intravenous PRN Or ??? lactated ringers (LR) infusion intravenous PRN ??? lidocaine (PF) 10 mg/mL (1 %) injection 2 mg intradermal PRN ??? lidocaine (PF) 10 mg/mL (1 %) injection 2 mg intradermal PRN ??? sodium chloride 0.9 % (flush) flush 3 mL intravenous PRN ??? sodium chloride 0.9 % (flush) flush 5 mL intravenous Q8H Past Medical History: Past Medical History: Diagnosis Date ??? GERD (gastroesophageal reflux disease) ??? Varicella Social History: Past Surgical History: Procedure Laterality Date ??? ABDOMEN SURGERY Social History Tobacco Use ??? Smoking status: Former Smoker Quit date: 04/05/2000 Years since quittin.3 ??? Smokeless tobacco: Never Used Substance Use Topics ??? Alcohol use: No Family History: History reviewed. No pertinent family history. Review of Systems as pertinent: Physical Exam Vital Signs: BP 100/71 Temp 36.5 ??C (97.7 ??F) (Temporal) Resp 18 Ht 154.9 cm (61) Wt 59 kg (130 lb) SpO2 100% BMI 24.56 kg/m?? Heart Examination: Cardiac Regularity: Regular Respiratory Examination: Breath Sounds Right: Clear Breath Sounds Left: Clear Abdominal Examination: Soft, non-tender, bowel sounds normal, no masses, no organomegaly Additional physical exam related to the proposed procedure, patient activity, disease state and treatment as pertinent: Assessment Previous complications with sedation or anesthesia?: No Anesthesia Classification: ASA 2 Plan: Proceed with sedation for procedure Fasting Time: Date of Last Liquid: 07/30/21 Time of Last Liquid: 1999 Date of Last Solid: 07/30/21 Time of Last Solid: 1829 Patient Appropriate Candidate for Planned Sedation?: Yes Ash Villagomez MD 07/31/2021 9:04 documented in this encounter Procedure Notes * Ash Villagomez MD - 07/31/2021 0840 ESTProcedure(s): PH PROBE Analysis of 48 hour esophageal pH performed: signficant acid exposure on the first day with no correlation of symptoms. See Scans for full report. Ash Villagomez MD documented in this encounter Nursing Notes * Lashon Murray RN - 07/31/2021 0922 EST PH probe successfully deployed @ 29cm at 0919. Pt to return director of rehabilitative services on 08/02/2021. #[id number]. documented in this encounter Plan of Treatment Not on file documented as of this encounter Procedures Procedure Name Priority Date/Time Associated Diagnosis Comments ENDOSCOPY REPORTS - SCANNED 08/08/2021 7:44 EST UPPER ENDOSCOPY PROCEDURE Routine 07/31/2021 9:26 EST documented in this encounter Results * ENDOSCOPY REPORTS - SCANNED (08/08/2021 7:44 EST) 08/08/2021 7:44 EST Scan 2 Labor Utilization Superintendent PROCEDURE/MINOR LENARD GICAL ORDERABLES * UPPER ENDOSCOPY PROCEDURE (07/31/2021 9:26 EST) Anatomical Region Laterality Modality Endoscopy Narrative 07/31/2021 9:26 EST Procedure Performed EGD/Esophageal PH Probe Indications for Exam Dysphagia. Procedure Technique A physical exam was performed. Informed consent was obtained from the patient after explaining all the risks (perforation, bleeding, infection and adverse effects to the medicine), benefits and alternatives to the procedure which the patient appeared to understand and so stated. ??The patient was connected to the monitoring devices and placed in the left lateral position. Continuous oxygen was provided with a nasal cannula and IV medicine administered through a indwelling cannula. After adequate sedation was achieved, the patient was intubated and the scope advanced under direct visualization to the distal duodenum. The distal duodenum was identified by visual landmarks. Retroflexion was performed. ??The pH probe was deployed 6 cm above the gastroesophageal junction. The scope was subsequently removed slowly while carefully examining the color, texture, anatomy, and integrity of the mucosa on withdrawal. The patient was subsequently transferred to the recovery area in satisfactory condition. Estimated Blood Loss: None Complications None Medications Demerol 100 mg Versed 5 mg I was in continuous face to face attendance during the administration of moderate sedation services that were monitored by an independent trained observer who had no other duties during the procedure. ??Total sedation time was 14 minutes. Findings Esiophagus: normal, GE junction 35 cm Stomach: small hiatal hernia, otherwise normal Duodenum: normal Diagnosis Small hiatal henia, otherwise normal EGD Successful deployment of esophageal pH probe Recommendations Follow up on the results of pH probe. This electronic signature authenticates all electronic and/or handwritten documentation, including orders, generated by the signer during the episode of care contained in this record. 07/31/2021 09:26:54 AM By Ash Villagomez MD Ash Villagomez MD PhD GI PROCEDURE OR DERABLES documented in this encounter Visit Diagnoses Not on filedocumented in this encounter Administered Medications Inactive Administered Medications - up to 3 most recent administrations Medication Order MAR Action Action Date Dose Rate Site lactated ringers (LR) infusion 30 mL/hr, intravenous, PRN, Starting on Thu07/31/21 at 0819, Until Thu08/03/21 at 0202, Routine, Preprocedure New Bag 07/31/2021 8:23 EST 30 mL/hr 30 mL/hr lidocaine (XYLOCAINE) 2 % viscous solution oral, PRN, Starting on Thu07/31/21 at 0904, Until Thu07/31/21 at 0904, Routine Given 07/31/2021 9:04 EST 10 mL meperidine (PF) (DEMEROL) injection intravenous, PRN, Starting on Thu07/31/21 at 0907, Until Thu07/31/21 at 0914, Routine Given 07/31/2021 9:14 EST 25 mg IV Given 07/31/2021 9:10 EST 25 mg IV Given 07/31/2021 9:07 EST 50 mg IV midazolam (MDV) (VERSED) injection intravenous, PRN, Starting on Thu07/31/21 at 0907, Until Thu07/31/21 at 0919, Routine Given 07/31/2021 9:19 EST 1 mg IV Given 07/31/2021 9:14 EST 1 mg IV Given 07/31/2021 9:10 EST 1 mg IV documented in this encounter Orders Medications Ordered That Lester ht Not Have Been Administered Count Last Ordered Date First Ordered Date diphenhydrAMINE (BENADRYL) injection 25 mg 1 07/31/2021 lidocaine (PF) 10 mg/mL (1 % ) injection 2 mg 2 07/31/2021 sodium chloride 0.9 % (flush) flush 3 mL 1 07/31/2021 sodium chloride 0.9 % (flush) flush 5 mL 1 07/31/2021 sodium chloride 0.9 % (NS) infusion 1 07/31 documented in this encounter Care Teams Staff Development Manager Relationship Specialty Start Date End Date Shadia Garcia APRN [address] [place] [phone] PCP - General 09/09/18 documented as of this encounter
--- OUTSIDE RECORDS SUMMARY | 2024-03-07 15:08 | XMS_ITS | Referral Summary ---
Author Organization [facility] Address [address] [place] [address] Care Team Providers Care Instrument Person Name Role Phone JoseShadia Sincere ELLER Primary Care Provider [phone] Allergies Active Allergy Reactions Criticality Noted Date Comments Bovine Complex Swelling of throat 12/01/2014 Medications Medication Sig Dispensed Refills Start Date End Date Status fluticasone (FLONASE) 50 mcg/actuation nasal spray Instill 50 mcg into both nostrils daily Active KETOTIFEN FUMARATE (ALLERGY EYE, KETOTIFEN, OPHTHALMIC) Apply 1 Drop to eye Acti ve omeprazole (PRILOSEC) 20 mg capsule Take 1 Cap by mouth daily 90 Cap 3 05/21/2015 Active Additional Information Patient not taking.Reported on 09/09/2018 ascorbate calcium (VITAMIN C ORAL) Take by mouth as needed. Active triamcinolone (KENALOG) 0.1 % ointment Apply topically to affected area 2 times daily. Do not apply to face, armpit or groin. 454 g 3 09/09/2018 Active Additional Information Patient not taking.Reported on 11/17/2018 pantoprazole (PROTONIX) 40 mg tablet Take 40 mg by mouth daily. 04/30/2021 Active famotidine (PEPCID) 40 mg tablet Take 40 mg by mouth daily. 04/23/2021 Active MULTIVITAMIN ORAL Take by mouth. Act julio Active Problems Patient Care Coordination No te Formatting of this note migh t be different from the original. 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 1 Immunizations Name Administration Dates Next Due Covid-19 mRNA Vaccine (MODER NA COVID-19) PF 0.5 ml IM (12 yrs+) 06/04/2021,08/31/2020,08/03/2020 Social History Tobacco Use Types Packs/Day Years [...] 7:58 EST Sexual Orientation Not on file Last Filed Vital Signs Vital Sign Reading Time Taken Comments Blood Pressure 113/71 09/17/2021 1405 EDT Pulse 66 09/17/2021 1405 EDT Temperature 36.5 ??C (97.7 ??F) 07/31/2021 0930 EST Respiratory Rate 15 07/31/2021 0942 EST Oxygen Saturation 97% 07/31/2021 0942 EST Inhaled Oxygen Concentration - - Weight 61.1 kg (134 lb 12.8 oz) 09/17/2021 1405 EDT Height 154.9 cm (5' 0.98) 09/17/2021 1405 EDT Body Mass Index 25.48 09/17/2021 1405 EDT Functional Status Functional Status Response Date of [...] concentrating, remembering, or making decisions? No 03/07/2015 Plan of Treatment Not on file Procedures Procedure Name Priority Date/Time Associated Diagnosis Comments HEPATITIS C AB W REFLEX TO HCV RNA BY PCR Routine 10/30/2020 10:35 EDT from Last 3 Months or Most Recently Relevant to Health Maintenance Results * HEPATITIS C AB W REFLEX TO HCV RNA BY PCR (10/30/2020 10:35 EDT) Hep C Antibody Negative Negative 10/31/2020 11:13 EDT [facility] Blood VENOUS BLOOD / Unknown 10/30/2020 10:35 EDT 10/30/2020 21:31 EDT Provider Outr Resulting Lab CHEMISTRY & BLOOD GAS ORDERABLES [facility] [address] [place] [address] from Last 3 Months or Most Recently Relevant to Health Maintenance Advance Directives For more information, please contact: [phone] Documents on File Type Date Recorded Patient Credit Analysis Manager Expl anation Advance Directive 07/31/2021 8:02 Advance [facility]-Signed 2020-04-08 Care Teams Instrument Person Relationship Specialty Start Date End Date Shadia Garcia APRN [address] [place] [phone] PCP - General 09/09/18
--- OUTSIDE RECORDS SUMMARY | 2024-03-07 15:08 | XMS_ITS | Encounter Summary ---
Author Organization [facility] Address [address] [place] [address] Care Team Providers Care Broom Handle Dipper Name Role Phone Ricardo Candelario MD Primary Care Provider [phone] Encounter Details Date Type Department Care Team (Late st Contact Info) Description 03/31/2013 Results Only [facility] Laboratory Services - [facility] ([facility]) [address] [place], [place] [phone] Glen Mukherjee MD [address] [place], [place] [phone] Social History Tobacco Use Types Packs/Day Years [...] Procedure Name Priority Date/Time Associated Diagnosis Comments PAP TEST- RESULT ONLY Routine 03/31/2013 0:00 EDT documented in this encounter Results * PAP TEST- RESULT ONLY (03/31/2013 0:00 EDT) Pathology Report: CYTOPATHOLOGY REPORT Reports generated via electronic interface contain original data; however they are lacking the format of the original report. Caution should be taken when reading/interpreti ng unformatted reports. Name: ? ZENY SAM ? Accession #: ? [id number] ? : ? 1980 (Age: 33) ??F ?Collect Date: ? 03/31/2013 ? Location: ? [facility] ? Receive Date: ? 04/04/2013 ? Provider: Eric MUKHERJEE MD Copy to: ? Final Report SPECIMEN ADEQUACY ? Satisfactory for Evaluation - transformation zone component present GENERAL CATEGORIZATION ? Negative for Intraepithelial Lesion or Malignancy INTERPRETATION ? Shift in nevaeh present suggestive of bacterial vaginosis. Last Menstrual Period: 03/11/13 Specimen/Source: ??Pap Test, Cervix/Endocervix, ThinPrep Imaging System with manual evaluation Document reviewed and electronically signed by: ? THOMAS Us(ASCP) ? Report ??Date: 04/07/2013 13:54 HPV with Pap Test ? Date Ordered: ? 04/07/2013 ? Status: ?? Signed Out ?Date Complete: ? 04/09/2013 ? By: ??System Interface ? Date Reported: ? 04/09/2013 ? Interpretation RESULT: Negative for HPV. No E6 or E7 mRNA is detected from HPV types 16,18,31,33,35, 39,45,51,52,56,58, 59,66, and 68 by survey statistician mediated amplification. Comments Document reviewed and electronically signed by: ? System Interface ? Report date: 04/09/2013 By the signature above, the attending physician certifies that he/she has personally conducted a gross and/or microscopic examination of the described specimens and rendered or confirmed the above diagnosis. End of Report [facility] 03/31/2013 04/04/2013 Glen Mukherjee MD PATHOLOGY ORDERABLES Performing Organization Address City/State/[facility] Co de Phone Number [facility] [address] [place] [address] documented in this encounter Visit Diagnoses Not on filedocumented in this encounter Care Teams Broom Handle Dipper Relationship Specialty Start Date End Date Ricardo Candelario MD [address] [place] [address] PCP - General 02/27/11 09/08/18 documented as of this encounter
--- OUTSIDE RECORDS SUMMARY | 2024-03-07 15:08 | XMS_ITS | Encounter Summary ---
Author Organization [facility] Address [address] [place] [address] Care Team Providers Care Pole Shaver Name Role Phone Shadia Garcia APRN Primary Care Provider [phone] Encounter Details Date Type Department Care Team (Late st Contact Info) Description 02/28/2021 Lab Requisition [facility] Pathology & Laboratory Medicine - [address] [address] Shadia Garcia APRN [address] [place] [phone] Encounter for general adult medical examination without abnormal findings; Encounter for screening for malignant neoplasm of cervix Social History Tobacco Use Types Packs/Day Years [...] Name Priority Date/Time Associated Diagnosis Comments PAP TEST Today 02/26/2021 1:45 EDT Encounter for general adult medical examination without abnormal findings Encounter for screening for malignant neoplasm of cervix HPV DNA DETECTION WITH GENOTYPING, PCR Today 02/26/2021 1:45 EDT Encounter for general adult medical examination without abnormal findings Encounter for screening for malignant neoplasm of cervix documented in this encounter Results * HUMAN PAPILLOMAVIRUS (HPV) DETECTION-HIGH RISK TYPES (02/26/2021 1:45 EDT) HPV other High Risk types, PCR Negative Negative 03/12/2021 15:17 EDT [facility] Comment:No E6 or E7 mRNA is detected from HPV types 16,18,31,33,35,39,45,51,52,56,58,59,66, and 68 by medical transcription editor mediated amplification. Papanicolaou smear specimen (specimen) CERVIX UTERI STRUCTURE / Unknown 02/26/2021 1:45 EDT 03/11/2021 15:52 EDT Shadia Garcia APRN MICROBIOLOGY - GENER AL ORDERABLES [facility] [address] [place] [address] * PAP TEST (02/26/2021 1:45 EDT) Specimens A. Cervix and/or Endocervix , ThinPrep Imaging System with Manual Evaluation 03/12/2021 15:17 EDT [facility] Specimen Adequacy Satisfactory for Evaluation - transformation zone component present 03/12/2021 15:17 EDT [facility] General Categorization Negative for intraepithelial lesion or malignancy 03/12/2021 15:17 T [facility] Descriptive Diagnosis Shift in nevaeh present suggestive of bacterial vaginosis. 03/12/2021 15:17 T [facility] Attestation . 03/12/2021 15:17 [facility] at 1517 Clinical History See below 03/12/20 15:17 EDT [facility] HPV The result for the Human Papillomavirus (HPV) Detection-High Risk Types is Negative. No E6 or E7 mRNA is detected from HPV types 16,18,31,33,35,39 ,45,51,52,56,58,5 9,66, and 68 by medical transcription editor mediated amplification.Kyleigh ting was performed on specimen [id number] and was resulted on 03/12/2021 1511 EDT by JENNIFER, LAB INSTRUMENT RESULTS IN 03/12/2021 15:17 EDT [facility] Performing Lab [facility] 03/12/2021 15:17 EDT [facility] Scanned Images 03/12/2021 15:17 EDT [facility] Papanicolaou smear specimen (specimen) CERVIX UTERI STRUCTURE / Unknown 02/26/2021 1:45 EDT 02/28/2021 14:46 EDT Shadia Garcia APRN PATHOLOGY ORDERABLES [facility] [address] [place] [address] documented in this encounter Visit Diagnoses Diagnosis Encounter for general adult medical examination without abnormal findings Unspecified general medical examination Encounter for screening for malignant neoplasm of cervix Screening for malignant neoplasm of the cervix documented in this encounter Care Teams Pole Shaver Relationship Specialty Start Date End Date Shadia Garcia APRN [address] [place] [phone] PCP - General 09/09/18 documented as of this encounter
--- OUTSIDE RECORDS SUMMARY | 2024-03-07 15:08 | XMS_ITS | Encounter Summary ---
Author Organization [facility] Address [address] [place] [address] Care Team Providers Care Finished Metal Repairer Name Role Phone Shadia Garcia DAPHNIE Primary Care Provider [phone] Reason for Visit * Reason Onset Date Comments Results 08/07/2021 Encounter Details Date Type Department Care Team (Late st Contact Info) Description 08/07/2021 Telephone [facility] Gastroenterology - [address] [address] Kenny Kelly MD [address] [place] [address], [address] [place] [phone] Results Social History Tobacco Use [...] encounter Miscellaneous Notes * Telephone Encounter - Kenny Kelly MD - 08/07/2021 1232 EST Called patient with the results of the ph probe. I told her to make a clinic visit with me so we can discuss future therapy. No urgency in clinic visit documented in this encounter Plan of Treatment Not on file documented as of this encounter Visit Diagnoses Not on filedocumented in this encounter Care Teams Finished Metal Repairer Relationship Specialty Start Date End Date Shadia Garcia APRN [address] [place] [phone] PCP - General 09/09/18 documented as of this encounter
--- OUTSIDE RECORDS SUMMARY | 2024-03-07 15:08 | XMS_ITS | Encounter Summary ---
Author Organization [facility] Address [address] [place] [address] Care Team Providers Care Utility Hand Name Role Phone Ricardo Candelario MD Primary Care Provider [phone] Encounter Details Date Type Department Care Team (Late st Contact Info) Description 03/07/2015 Phlebotomy Only [address] [address] [employer] Operator, Outpatient Generalized abdominal pain (Primary Dx) Social History Tobacco Use Types [...] Procedure Name Priority Date/Time Associated Diagnosis Comments TISSUE TRANSGLUTAMINASE ANTIBODY, IGA Routine 03/07/2015 12:38 EDT Generalized abdominal pain IGA Routine 03/07/2015 12:38 EDT Generalized abdominal pain COMPLETE BLOOD COUNT AND DIFFERENTIAL Routine 03/07/2015 12:38 EDT Generalized abdominal pain C REACTIVE PROTEIN Routine 03/07/2015 12 :38 EDT Generalized abdominal pain HEPATIC FUNCTION PANEL (ALB,ALK PHOS,ALT,AST,DBIL,TOT PAUL,TOT PROT) Routine 03/07/2015 12:38 EDT Generalized abdominal pain documented in this encounter Results * HEMAGRAM AND DIFFERENTIAL (03/07/2015 12:38 EDT) WBC 6.72 4.0 - 12.4 K/cmm 03/07/2015 13:09 [facility] RBC 4.62 3.86 - 5.04 M/cmm 03/07/2015 13:09 [facility] Hemoglobin 14.0 11.6 - 15.2 gm/dl 03/07/2015 13:09 [facility] HCT 41.1 34.9 - 44.4 % 03/07/2015 13:09 [facility] MCV 89 81 - 98 fl 03/07/2015 13:09 [facility] MCH 30.2 26.7 - 33.3 pg 03/07/2015 13:09 [facility] MCHC 34.0 32.1 - 35.9 gm/dl 03/07/2015 13:09 [facility] RDW-CV 12.7 11.7 - 14.6 % 03/07/2015 13:09 [facility] RDW-SD 39.4 37.6 - 50.3 fl 03/07/2015 13:09 [facility] PLT 287 141 - 320 K/cmm 03/07/2015 13:09 [facility] MPV 7.9 7.5 - 11.2 fl 03/07/2015 13:09 [facility] % Neutrophils 62.1 45.5 - 79.7 % 03/07/2015 13:09 [facility] % Lymphocytes 29.9 15.0 - 46.8 % 03/07/2015 13:09 [facility] % Monocytes 6.6 1.8 - 12.0 % 03/07/2015 13:09 [facility] % Eosinophils 1.0 0.6 - 6.9 % 03/07/2015 13:09 [facility] % Basophils 0.4 0.2 - 1.4 % 03/07/2015 13:09 [facility] ABS Neutrophils 4.17 2.20 - 8.85 K/cmm 03/07/2015 13:09 [facility] ABS Lymphs 2.01 1.09 - 3.30 K/cm 03/07/2015 13:09 [facility] ABS Monocytes 0.44 0.1 - 0.8 K/cm 03/07/2015 13:09 [facility] ABS Eosinophils 0.07 0.03 - 0.61 K/cmm 03/07/2015 13:09 [facility] ABS Basophils 0.02 0.01 - 0.11 K/cmm 03/07/2015 13:09 [facility] Type of Diff: Automated 03/07/2015 13:09 [facility] Blood specimen (specimen) BLOOD SPECIMEN / Unknown 03/07/2015 12:38 EDT 03/07/2015 12:47 EDT Christopher German MD PACKAGES & DNA PRO BE ORDERABLES Performing Organization Address City/[facility] Co de Phone Number [facility] [address] [place] [address] * IGA (03/07/2015 12:38 EDT) IgA 283 82 - 453 mg/dl 03/07/2015 16:12 EDT [facility] Blood specimen (specimen) BLOOD SPECIMEN / Unknown 03/07/2015 12:38 EDT 03/07/2015 12:47 EDT Christopher German MD CHEMISTRY & BLOOD GAS ORDERABLES Performing Organization Address City/[facility] Co de Phone Number [facility] [address] [place] [address] * TISSUE TRANSGLUTAMINASE AB (03/07/2015 12:38 EDT) Tissue Transglut Ab <1.2 <4 U/mL 03/09/2015 12:25 EDT [facility] Comment: The following results were obtained with the [employer] QUANTA Lite R h-tTG IgA SIM assay on the [employer] DSX. A negative result may be due to IgA deficiency and does not rule out celiac disease. Blood specimen (specimen) BLOOD SPECIMEN / Unknown 03/07/2015 12:38 EDT 03/07/2015 12:47 EDT Christopher German MD IMMUNOLOGY AND SER OLOGY ORDERABLES Performing Organization Address [facility] Co de Phone Number [facility] [address] [place] [address] * C REACTIVE PROTEIN (03/07/2015 12:38 EDT) C Reactive Protein 7.3 <10.0 mg/L 03/07/2015 13:28 EDT [facility] Comment: Note units change to mg/L. Values will be 10 fold higher than with previous units of mg/dl. Blood specimen (specimen) BLOOD SPECIMEN / Unknown 03/07/2015 12:38 EDT 03/07/2015 12:47 EDT Christopher German MD CHEMISTRY & BLOOD GAS ORDERABLES Performing Organization Address [facility] Co de Phone Number [facility] [address] [place] [address] * (ABNORMAL) HEPATIC FUNCTION PANEL (ALB,ALK PHOS,ALT,AST,DBIL,TOT PAUL,TOT PROT) (03/07/2015 12:38 EDT) Albumin 4.8 3.4 - 4.9 g/dl 03/07/2015 13:28 EDT [facility] Total Protein 8.3(H) 6.3 - 8.2 g/dl 03/07/2015 13:28 EDT [facility] Total Alkaline Phosphatase 68 38 - 126 U/L 03/07/2015 13:28 EDT [facility] ALT 31 <53 U/L 03/07/2015 13:28 EDT [facility] AST 32 15 - 46 U/L 03/07/2015 13:28 EDT [facility] Unconjugated Bilirubin 0.2 0.0 - 1.1 mg/dl 03/07/2015 13:28 T [facility] Conjugated Bilirubin 0.0 0.0 - 0.3 mg/dl 03/07/2015 13:28 EDT [facility] Bilirubin, Total 0.6 <1.4 mg/dl 03/07/20 15 13:28 T [facility] Blood specimen (specimen) BLOOD SPECIMEN / Unknown 03/07/2015 12:38 EDT 03/07/2015 12:47 EDT Christopher German MD CHEMISTRY & BLOOD GAS ORDERABLES Performing Organization Address City/State/[facility] Co de Phone Number [facility] [address] [place] [address] documented in this encounter Visit Diagnoses Diagnosis Generalized abdominal pain- Primary Abdominal pain, generalized documented in this encounter Care Teams Utility Hand Relationship Specialty Start Date End Date Ricardo Candelario MD [address] [place] [phone] PCP - General 02/27/11 09/08/18 documented as of this encounter
--- OUTSIDE RECORDS SUMMARY | 2024-03-07 15:08 | XMS_ITS | Encounter Summary ---
Author Organization [facility] Address [address] [place] [address] Care Team Providers Care Mash Processing Operator Name Role Phone Shadia Garcia APRN Primary Care Provider [phone] Encounter Details Date Type Department Care Team (Latest Contact Info) Description 07/31/2021 Travel Social History Tobacco Use Types Packs/Day Years [...] on filedocumented in this encounter Care Teams Mash Processing Operator Relationship Specialty Start Date End Date Shadia Garcia APRN [address] [place] [address] PCP - General 09/09/18 documented as of this encounter
--- OUTSIDE RECORDS SUMMARY | 2024-03-07 15:08 | XMS_ITS | Clinical Summary ---
Author Organization [facility] Address [address] [place] [address] Care Team Providers Care Digital Learning Platforms Manager Name Role Phone JoseShadia Sincere ELLER Primary Care Provider [phone] Allergies Active Allergy Reactions Criticality Noted Date [...] original. 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 1 Immunizations Name Administration Dates Next Due Covid-19 mRNA Vaccine (MODER NA COVID-19) PF 0.5 ml IM (12 yrs+) 06/04/2021,08/31/2020,08/03/2020 Surgical History Surgery Date Site/Laterality Comments ABDOMEN SURGERY Medical History Medical History Date Comments Varicella GERD (gastroesophageal reflux disease) Social History Tobacco Use Types Packs/Day Years [...] 7:58 EST Sexual Orientation Not on file Obstetrics History Para Term AB IAB SAB Ectopic Multiple Livin g Live Births 2 1 1 1 1 Date Outcome GA Total Labor Labor/2nd/3rd Weight Sex Type Anes PTL Christa A1 A5 Name Clin Term 40w 0d F CS-LT ranv [place] [place] Vital Signs Vital Sign Reading [...] Body Mass Index 25.48 09/17/2021 1405 EDT Plan of Treatment Health Maintenance Due Date Last Done Comments Hepatitis B Vaccine (1 of - + 3-dose series) 1998 COVID-19 Vaccine (2022-2 4 season) 2023 06/04/2021, 08/31/2020, 08/03/2020 Hepatitis C Screen Completed 10/30/2020 Procedures Procedure Name Priority Date/Time Associated Diagnosis Comments HEPATITIS C AB W REFLEX TO HCV RNA BY PCR Routine 10/30/2020 10:35 EDT from Last 3 Months or Most Recently Relevant to Health Maintenance Results * HEPATITIS C AB W REFLEX TO HCV RNA BY PCR (10/30/2020 10:35 EDT) Hep C Antibody Negative Negative 10/31/2020 11:13 EDT [facility] Blood VENOUS BLOOD / Unknown 10/30/2020 10:35 EDT 10/30/2020 21:31 EDT Provider Outr Resulting Lab CHEMISTRY & BLOOD GAS ORDERABLES [facility] [address] [place] [address] from Last 3 Months or Most Recently Relevant to Health Maintenance Advance Directives For more information, please contact: [phone] Documents on File Type Date Recorded Patient Brand Analyst Expl anation Advance Directive 07/31/2021 8:02 Advance D [facility] Care-Signed 2020-04-08 Care Teams Digital Learning Platforms Manager Relationship Specialty Start Date End Date Shadia Garcia APRN [address] [place] [place] [phone] PCP - General 09/09/18
--- OUTSIDE RECORDS SUMMARY | 2024-03-07 15:08 | XMS_ITS | Encounter Summary ---
Author Organization [facility] Address [address] [place] [address] Care Team Providers Care Revit Drafter Name Role Phone Shadia Garcia DAPHNIE Primary Care Provider [phone] Reason for Visit * Reason Onset Date Comments COVID-19 07/23/2021 Encounter Details Date Type Department Care Team (Late st Contact Info) Description 07/23/2021 Telephone [facility] - Emergency [facility] [address] [place] [address] Ash Villagomez MD PhD [address] [facility] [address] [place] [address] COVID-19 Social History Tobacco Use Types Packs/Day Years [...] encounter Miscellaneous Notes * Telephone Encounter - Stacy Hopkins - 07/23/2021 1204 EST Patient advised they would like covid testing done at [facility]. Conservation Engineer faxed the order and asked thatthey schedule the patient for testing on 07/27/21 (No testing on Sundays). Pt will call to get appt time. Conservation Engineer will also remove patient from the work queue. documented in this encounter Plan of Treatment Not on file documented as of this encounter Visit Diagnoses Not on filedocumented in this encounter Care Teams Revit Drafter Relationship Specialty Start Date End Date Shadia Garcia APRN [address] [place] [address] PCP - General 09/09/18 documented as of this encounter
--- OUTSIDE RECORDS SUMMARY | 2024-03-07 15:08 | XMS_ITS | Encounter Summary ---
Author Organization [facility] Address [address] [place] [address] Care Team Providers Care Switch Foreman Name Role Phone Ricardo Candelario MD Primary Care Provider [phone] Encounter Details Date Type Department Care Team (Latest Contact Info) Description 05/23/2011 13:52 EST - 05/23/2011 23:59 EST Hospital Encounter [facility] [address] [place] [address] Unknown, Provider, Discharge Disposition: Home or Self Care Social [...] Code Departure Means Destination Home or Self Group Home documented in this encounter Plan of Treatment Not on file documented as of this encounter Visit Diagnoses Not on filedocumented in this encounter Care Teams Switch Foreman Relationship Specialty Start Date End Date Ricardo Candelario MD [address] [place] [address] [address] [place] [phone] PCP - General 02/27/11 09/08/18 documented as of this encounter
--- OUTSIDE RECORDS SUMMARY | 2024-03-07 15:08 | XMS_ITS | Encounter Summary ---
Author Organization [facility] Address [address] [place] [address] Care Team Providers Care Blood Bank Technician Name Role Phone Ricardo Candelario MD Primary Care Provider [phone] Encounter Details Date Type Department Care Team (Late st Contact Info) Description 09/12/2016 Results Only [facility] [phone] Christie Webster APRN [address] [place], [place] [address] Social History Tobacco Use Types Packs/Day Years [...] Diagnosis Comments PAP TEST- RESULT ONLY Routine 09/12/2016 0:00 EDT documented in this encounter Results * PAP TEST- RESULT ONLY (09/12/2016 0:00 EDT) Pathologist [facility] Pathology Report: CYTOPATHOLOGY REPORT Reports generated via electronic interface contain original data; however they are lacking the format of the original report. Caution should be taken when reading/interpreti ng unformatted reports. Name: ? ZENY CHOW ? Accession #: ? [id number] ? : ? 1980 (Age: 36) ??F ?Collect Date: ? 09/12/2016 ? Location: ? [facility] ? Receive Date: ? 09/15/2016 ? Provider: CHRISTIE WEBSTER APRN Copy to: ? Final Report SPECIMEN ADEQUACY ? Satisfactory for Evaluation - transformation zone component present GENERAL CATEGORIZATION ? Negative for Intraepithelial Lesion or Malignancy INTERPRETATION ? Shift in nevaeh present suggestive of bacterial vaginosis. Specimen/Source: ??Pap Test, Endocervix, ThinPrep Imaging System with manual evaluation Document reviewed and electronically signed by: ? LUIS A Ness(ASCP) ? Report ??Date: 09/17/2016 09:23 HPV with Pap Test ? Date Ordered: ? 09/17/2016 ? Status: ?? Signed Out ?Date Complete: ? 09/18/2016 ? By: ??System Interface ? Date Reported: ? 09/18/2016 ? Interpretation RESULT: Negative for HPV. No E6 or E7 mRNA is detected from HPV types 16,18,31,33,35, 39,45,51,52,56,58, 59,66, and 68 by fixture designer mediated amplification. Comments Document reviewed and electronically signed by: ? System Interface ? Report date: 09/18/2016 By the signature above, the attending physician certifies that he/she has personally conducted a gross and/or microscopic examination of the described specimens and rendered or confirmed the above diagnosis. End of Report [facility] 09/12/2016 09/15/2016 Christie Webster APRN PATHOLOGY ORDERABLE S [facility] [address] [place] [address] documented in this encounter Visit Diagnoses Not on filedocumented in this encounter Care Teams Blood Bank Technician Relationship Specialty Start Date End Date Ricardo Candelario MD [address] [place] [address] [address] [place] [phone] PCP - General 02/27/11 09/08/18 documented as of this encounter
--- OUTSIDE RECORDS SUMMARY | 2024-03-07 15:08 | XMS_ITS | Encounter Summary ---
Author Organization [facility] Address [address] [place] [address] Care Team Providers Care Plastic Sheets Supervisor Name Role Phone Ricardo Candelario MD Primary Care Provider Reason for Referral * Consult, Test and Treat (Routine) - Specialty Report Received Specialty Diagnoses / Procedures Referred By [facility] t Referred To Contact Diagnoses Dysphagia, unspecified dysphagia Procedures ESOPHAGEAL MANOMETRY Christopher German MD [address] [place] [phone] Ash Villagomez MD PhD [address] [place] [phone] Referral ID Status Reason Start Date Expiration Date V isits Requested Visits Authorized [id number] Specialty Report Received 03/08/2015 1 1 Reason for Visit * Reason Comments Follow-up reflux: pt says unco mfortable when sleep, pain in stomach, avoiding foods: still trying to figure out what is triggering pain Encounter Details Date Type Department Care Team (Late st Contact Info) Description 03/07/2015 10:40 EDT Office Visit [facility] - [address] [phone] Christopher German MD [address] [place] [phone] Dysphagia, unspecified dysphagia (Primary Dx); Generalized abdominal pain Social History Tobacco Use Types Packs/Day Years [...] Sign Reading Time Taken Comments Blood Pressure 110/72 03/07/2015 1056 EDT Pulse 64 03/07/2015 1056 EDT Temperature - - Respiratory Rate - - Oxygen Saturation - - Inhaled Oxygen Concentration - - Weight 57.6 kg (127 lb) 03/07/2015 1056 EDT Height 152.4 cm (5') 03/07/2015 1056 EDT Body Mass Index 24.8 03/07/2015 1056 EDT documented in this encounter Functional Status [...] No 03/07/2015 documented as of this encounter Discharge Diagnoses Diagnosis 787.20 DYSPHAGIA, UNSPECIFIED[ICD-9-CM] 789.07 ABDOMINAL PAIN GENERALIZED[ICD-9-CM] documented in this encounter Progress Notes * Christopher German MD - 03/07/2015 1115 EDT Subjective: Patient ID: Cathy Chow is an 35 y.o. female. Chief Complaint Patient presents with ??? Follow-up reflux: pt says uncomfortable when sleep, pain in stomach, avoiding foods: still trying to figure out what is triggering pain HPI Comments: Ms. Chow returns to the GI office. She was seen for symptoms of dysphagia, and had an EGD with biopsies done. There was no stricture seen, but there was suggestion of reflux on her biopsies. No evidence of eosinophils. She has been on BID PPI without improvement. She still has dysphagia, to both solids and liquids. Feels like she has to vomit up food she eats that is stuck. Also get abdominal cramping with eating. Chocolate is a trigger as well as some fruits. Not having diarrhea or gas. No weight loss. Symptoms are not severe, but do bother her and are chronic. Patient Active Problem List Diagnosis ??? 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 Varicella ??? GERD (gastroesophageal reflux disease) Past Surgical History Procedure Laterality Date ??? Abdomen surgery History reviewed. No pertinent family history. Social History Substance Use Topics ??? Smoking status: Former Smoker ??? Smokeless tobacco: Not on file ??? Alcohol Use: No Current Outpatient Prescriptions on File Prior to Visit Medication Sig Dispense Refill ??? fluticasone (FLONASE) 50 mcg/actuation nasal spray Instill 50 mcg into both nostrils daily ??? KETOTIFEN FUMARATE (ALLERGY EYE, KETOTIFEN, OPHTHALMIC) Apply 1 Drop to eye ??? omeprazole (PRILOSEC) 20 mg capsule Take 20 mg by mouth 2 times daily No current facility-administered medications on file prior to visit. Allergies Allergen Reactions ??? Bovine Complex Swelling of throat ROS - See HPI Objective: BP 110/72 mmHg Pulse 64 Ht 152.4 cm (60) Wt 57.607 kg (127 lb) BMI 24.80 kg/m2 ? Unknown Physical Exam Alert and oriented, no distress Sclera anicteric, mucous membranes moist Heart regular rate and rhythm Lungs clear to auscultation bilaterally Abdomen soft and non-tender, no masses, hepatomegally Extremities without rash or edema Assessment: 1) Ongoing dysphagia. I wonder if this is functional. Esophagus unremarkable on EGD. No weight loss. Will schedule her for manometry to rule out achalasia 2) Cramping with eating. Also sounds functional, but her bowels are pretty unremarkable. Will checkfor celiac disease and some basic labs. She may benefit from a cotton buyer consult in the future if we don't turn up anything. Plan: -esophageal manometry -CBC, LFTs, TTG and IgA, CRP Christopher German MD documented in this encounter Plan of Treatment Scheduled Orders Name Type Priority Associated Diagnoses Orde r Schedule ESOPHAGEAL MANOMETRY GI Routine Dysphagia, Unspecified Dysphagia Expected: 03/08/2015 documented as of this encounter Results * HEMAGRAM AND DIFFERENTIAL (03/07/2015 12:38 EDT) WBC 6.72 4.0 - 12.4 K/cmm 03/07/2015 13:09 [facility] RBC 4.62 3.86 - 5.04 M/cmm 03/07/2015 13:09 [facility] Hemoglobin 14.0 11.6 - 15.2 gm/dl 03/07/2015 13:09 [facility] HCT 41.1 34.9 - 44.4 % 03/07/2015 13:09 [facility] MCV 89 81 - 98 fl 03/07/2015 13:09 [facility] MCH 30.2 26.7 - 33.3 pg 03/07/2015 13:09 [facility] MCHC 34.0 32.1 - 35.9 gm/dl 03/07/2015 13:09 [facility] RDW-CV 12.7 11.7 - 14.6 % 03/07/2015 13:09 [facility] RDW-SD 39.4 37.6 - 50.3 fl 03/07/2015 13:09 [facility] PLT 287 141 - 320 K/cmm 03/07/2015 13:09 [facility] MPV 7.9 7.5 - 11.2 fl 03/07/2015 13:09 [facility] % Neutrophils 62.1 45.5 - 79.7 % 03/07/2015 13:09 [facility] % Lymphocytes 29.9 15.0 - 46.8 % 03/07/2015 13:09 [facility] % Monocytes 6.6 1.8 - 12.0 % 03/07/2015 13:09 [facility] % Eosinophils 1.0 0.6 - 6.9 % 03/07/2015 13:09 [facility] % Basophils 0.4 0.2 - 1.4 % 03/07/2015 13:09 [facility] ABS Neutrophils 4.17 2.20 - 8.85 K/cmm 03/07/2015 13:09 [facility] ABS Lymphs 2.01 1.09 - 3.30 K/cmm 03/07/2015 13:09 [facility] ABS Monocytes 0.44 0.1 - 0.8 K/cmm 03/07/2015 13:09 [facility] ABS Eosinophils 0.07 0.03 - 0.61 K/cm 03/07/2015 13:09 [facility] ABS Basophils 0.02 0.01 - 0.11 K/cm 03/07/2015 13:09 [facility] Type of Diff: Automated 03/07/2015 13:09 [facility] Blood specimen (specimen) BLOOD SPECIMEN / Unknown 03/07/2015 12:38 EDT 03/07/2015 12:47 EDT Christopher German MD PACKAGES & DNA PRO BE ORDERABLES Performing Organization Address [facility] Co de Phone Number [facility] [address] [place] [address] * IGA (03/07/2015 12:38 EDT) IgA 283 82 - 453 mg/dl 03/07/2015 16:12 EDT [facility] Blood specimen (specimen) BLOOD SPECIMEN / Unknown 03/07/2015 12:38 EDT 03/07/2015 12:47 EDT Christopher German MD CHEMISTRY & BLOOD GAS ORDERABLES Performing Organization Address [facility] Co de Phone Number [facility] [address] [place] [address] * TISSUE TRANSGLUTAMINASE AB (03/07/2015 12:38 EDT) Tissue Transglut Ab <1.2 <4 U/mL 03/09/2015 12:25 EDT [facility] Comment: The following results were obtained with the [employer] QUANTA Lite R h-tTG IgA SIM assay on the Ticket [employer] DSX. A negative result may be due to IgA deficiency and does not rule out celiac disease. Blood specimen (specimen) BLOOD SPECIMEN / Unknown 03/07/2015 12:38 EDT 03/07/2015 12:47 EDT Christopher German MD IMMUNOLOGY AND SER OLOGY ORDERABLES Performing Organization Address [facility] Co de Phone Number [facility] [address] [place] [address] * C REACTIVE PROTEIN (03/07/2015 12:38 EDT) C Reactive Protein 7.3 <10.0 mg/L 03/07/2015 13:28 EDT [facility] Comment: Note units change to mg/L. Values will be 10 fold higher than with previous units of mg/dl. Blood specimen (specimen) BLOOD SPECIMEN / Unknown 03/07/2015 12:38 EDT 03/07/2015 12:47 EDT Christopher German MD CHEMISTRY & BLOOD GAS ORDERABLES Performing Organization Address [facility] de Phone Number [facility] [address] [place] [address] * (ABNORMAL) HEPATIC FUNCTION PANEL (ALB,ALK PHOS,ALT,AST,DBIL,TOT PAUL,TOT PROT) (03/07/2015 12:38 EDT) Albumin 4.8 3.4 - 4.9 g/dl 03/07/2015 13:28 EDT [facility] Total Protein 8.3(H) 6.3 - 8.2 g/dl 03/07/2015 13:28 EDT [facility] Total Alkaline Phosphatase 68 38 - 126 U/L 03/07/2015 13:28 EDT [facility] ALT 31 <53 U/L 03/07/2015 13:28 EDT [facility] AST 32 15 - 46 U/L 03/07/2015 13:28 EDT [facility] Unconjugated Bilirubin 0.2 0.0 - 1.1 mg/dl 03/07/2015 13:28 EDT [facility] Conjugated Bilirubin 0.0 0.0 - 0.3 mg/dl 03/07/2015 13:28 EDT [facility] Bilirubin, Total 0.6 <1.4 mg/dl 03/07/20 15 13:28 EDT [facility] Blood specimen (specimen) BLOOD SPECIMEN / Unknown 03/07/2015 12:38 EDT 03/07/2015 12:47 EDT Christopher German MD CHEMISTRY & BLOOD GAS ORDERABLES Performing Organization Address City/State/[facility] Co de Phone Number [facility] [address] [place] [address] documented in this encounter Visit Diagnoses Diagnosis Dysphagia, unspecified dysphagia- Primary Generalized abdominal pain Abdominal pain, generalized documented in this encounter Care Teams Plastic Sheets Supervisor Relationship Specialty Start Date End Date Ricardo Candelario MD [address] [place] [address] [address] [place] [phone] PCP - General 02/27/11 09/08/18 documented as of this encounter
--- OUTSIDE RECORDS SUMMARY | 2024-03-07 15:08 | XMS_ITS | Encounter Summary ---
Author Organization [facility] Address [address] [place] [address] Care Team Providers Care Sales Marketing Coordinator Name Role Phone Ricardo Candelario MD Primary Care Provider [phone] Reason for Visit * Reason Onset Date Comments Results 05/21/2015 MANO Encounter Details Date Type Department Care Team (Late st Contact Info) Description 05/21/2015 Telephone [facility] - [address] [address] Ash Villagomez MD PhD [address] [place] [address], [address] [place] [address] Results (MANO) Social History Tobacco Use Types Packs/Day Years [...] Dispensed Refills Start Date End Da te omeprazole (PRILOSEC) 20 mg capsule Take 1 Cap by mouth daily 90 Cap 3 05/21/2015 documented in this encounter Miscellaneous Notes * Telephone Encounter - Tonia Georges RN - 05/21/2015 1445 EST Let's have her go down to once daily. We can refill. Thanks Patient is aware of the recommendation & is in agreement with this plan. Script for omeprazole 20 mg daily refilled today. * Telephone Encounter - Tonia Georges RN - 05/21/2015 1351 EST The patient was called with results of manometry normal . She reports she is taking omeprazole twice daily for reflux with some effect & asked her PCP for refills , was directed to call our office for refills. * Telephone Encounter - Bria Goddard - 05/21/2015 1340 EST Patient wondering what the results of her mano are. documented in this encounter Plan of Treatment Not on file documented as of this encounter Visit Diagnoses Not on filedocumented in this encounter Discontinued Medications Medication Sig Discontinue Reason Start Date End Da te omeprazole (PRILOSEC) 20 mg capsule Take 20 mg by mouth 2 times daily 05/21/2015 documented as of this encounter Care Teams Sales Marketing Coordinator Relationship Specialty Start Date End Date Ricardo Candelario MD [address] [facility] [address] [place] [address] PCP - General 02/27/11 09/08/18 documented as of this encounter
--- OUTSIDE RECORDS SUMMARY | 2024-03-07 15:08 | XMS_ITS | Encounter Summary ---
Author Organization [facility] Address [address] [place] [address] Care Team Providers Care Director Of Gift Planning Name Role Phone Ricardo Candelario MD Primary Care Provider [phone] Reason for Visit * Reason Onset Date Comments Appointment Related 10/23/2014 EGD Encounter Details Date Type Department Care Team (Late st Contact Info) Description 10/23/2014 Telephone [facility] Gastroenterology - [address] [address] Christopher German MD [address] [place] [address], [address] [place] [address] Appointment Related (EGD) Social History Tobacco Use Types Packs/Day Years [...] Telephone Encounter - Tonia Georges RN - 10/23/2014 1223 EDT The patient states she thinks her symptoms of dysphagia and cough are caused by allergies and wishes to speak further with her PCP to have a referral to an Metal Cans Supervisor instead of having an EGD. She was made aware of what would be checking for with the EGD ( eosinophilic esophagitis) with biopsy as a possible cause for her dysphagia. Cathy verbalized understanding & will call backafter speaking with her PCP,to let us know if she wishes to proceed with the EGD scheduled for 11/17/14. * Telephone Encounter - Bria Goddard - 10/23/2014 1204 EDT Patient called wondering if she really needed this EGD. She wanted Dr. German to look at her last procedure note. It is in scans and media. documented in this encounter Plan of Treatment Not on file documented as of this encounter Visit Diagnoses Not on filedocumented in this encounter Care Teams Director Of Gift Planning Relationship Specialty Start Date End Date Ricardo Candelario MD [address] [place] [address] [place] [phone] PCP - General 02/27/11 09/08/18 documented as of this encounter
--- OUTSIDE RECORDS SUMMARY | 2024-03-07 15:08 | XMS_ITS | Encounter Summary ---
Author Organization [facility] Address [address] [place] [address] Care Team Providers Care Personnel Placement Specialist Name Role Phone Ricardo Candelario MD Primary Care Provider [phone] Reason for Visit * Consult, Test and Treat (Routine) - Specialty Report Received Specialty Diagnoses / Procedures Referred By Mango garnett Referred To Contact Diagnoses Dysphagia, unspecified(507.20) Procedures UPPER ENDOSCOPY Christopher German MD [address] [place] [phone] Referral ID Status Reason Start Date Expiration Date V isits Requested Visits Authorized [id number] Specialty Report Received 10/05/2014 1 1 Encounter Details Date Type Department Care Team (Late st Contact Info) Description 12/01/2014 12:20 EDT - 12/01/2014 23:59 EDT Hospital Encounter [facility] Endoscopy - [address] [address] Christopher German MD [address] [place] [phone] Dysphagia, unspecified(787.20) Discharge Disposition: Home or Self Care Social [...] Code Departure Means Destination Home or Self Custodial documented in this encounter Plan of Treatment Not on file documented as of this encounter Visit Diagnoses Diagnosis Dysphagia, unspecified(787.20) Dysphagia, unspecified documented in this encounter Orders Imaging Orders Without Results Count Last Order ed Date First Ordered Date UPPER ENDOSCOPY 1 12/04/2014 documented in this encounter Care Teams Personnel Placement Specialist Relationship Specialty Start Date End Date Ricardo Candelario MD [address] [facility] [address] [place] [phone] PCP - General 02/27/11 09/08/18 documented as of this encounter
--- OUTSIDE RECORDS SUMMARY | 2024-03-07 15:08 | XMS_ITS | Encounter Summary ---
Author Organization [facility] Address [address] [place] [address] Care Team Providers Care Manager Community Relations Name Role Phone Shadia Garcia DAPHNIE Primary Care Provider [phone] Reason for Visit * Reason Comments Follow-up rash Encounter Details Date Type Department Care Team (Late st Contact Info) Description 11/17/2018 15:30 EDT Office Visit [facility] Dermatology 3rd [address] [address] Diaz Linares MD [address] [place] [address], [address] [place] [phone] Dermatitis (Primary Dx) Social History Tobacco Use [...] No 03/07/2015 documented as of this encounter Patient Instructions * Patient Instructions* Diaz Linares MD, MD - 11/17/2018 15:30 EDT May use panoxyl wash (benzoyl peroxide) over the counter in shower. documented in this encounter Progress Notes * Diaz Linares MD, MD - 11/17/2018 1530 EDT Derm Hx Dermatitis, xerotic Rx tac .1% oint, emollients, ceraVe anti itch Last seen 09/07 S The itchy rash is gone, but have some pimples on skin O Face neck trunk both arms and legs seen Folliculitis papules and minute pustules, scattered trunk and exts A/P # Folliculitis, rx bpo 5% wash in shower # Xerotic dermatitis, resolved. May resume tac .1% oint bid prn for itchy rashes. Diaz Linares MD documented in this encounter Plan of Treatment Not on file documented as of this encounter Visit Diagnoses Diagnosis Dermatitis- Primary Contact dermatitis and other eczema, due to unspecified cause documented in this encounter Care Teams Manager Community Relations Relationship Specialty Start Date End Date Shadia Garcia APRN [address] [place] [address] PCP - General 09/09/18 documented as of this encounter
--- OUTSIDE RECORDS SUMMARY | 2024-03-07 15:08 | XMS_ITS | Encounter Summary ---
Author Organization [facility] Address [address] [place] [address] Care Team Providers Care Channel Marketing Manager Name Role Phone Ricardo Candelario MD Primary Care Provider [phone] Reason for Visit * Reason Onset Date Comments Results 03/10/2011 Results 03/14/2011 PATIENT CALLED T O GET RESULTS. Results 03/17/2011 Patient is reque sting biopsy results. Encounter Details Date Type Department Care Team (Late Contact Info) Description 03/10/2011 Telephone [facility] Dermatology 5th [address] [phone] Nyasia Guthrie MD [address] [place] [address], [address] [place] [address] Results; Results (PATIENT CALLED TO GET RESULTS. ); Results (Patient is requesting biopsy results. ) Social History Tobacco Use Types Packs/Day Years [...] Telephone Encounter - Nyasia Guthrie MD - 03/17/2011 1593 EDT I called Cathy back and let her know that the cultures are still pending. She is much better afterthe clindamycin. The area is nontender, and has dried up. She continues to improve. I told her I would call her when I see the final culture results. In the meantime she will continue to apply Vaseline to the dry areas. Nyasia Guthrie MD * Telephone Encounter - Kenia Za Reyes - 03/10/2011 0940 EDT Patient is looking for her results Za Aquino 03/10/2011 9:40 documented in this encounter Plan of Treatment Not on file documented as of this encounter Visit Diagnoses Not on filedocumented in this encounter Care Teams Channel Marketing Manager Relationship Specialty Start Date End Date Ricardo Candelario MD [address] [place] [address] [address] [place] [address] PCP - General 02/27/11 09/08/18 documented as of this encounter
--- OUTSIDE RECORDS SUMMARY | 2024-03-07 15:08 | XMS_ITS | Encounter Summary ---
Author Organization [facility] Address [address] [place] [address] Care Team Providers Care Handstitching Machine Collar Feller Name Role Phone Ricardo Candelario MD Primary Care Provider [phone] Reason for Visit * Reason Onset Date Comments Appointment Related 04/08/2012 Encounter Details Date Type Department Care Team (Late st Contact Info) Description 04/08/2012 Telephone [facility] Rehabilitation Therapy - [address] [address] Therapy, Physical Appointment Related Social History Tobacco Use Types Packs/Day Years [...] encounter Miscellaneous Notes * Telephone Encounter - Ni Jules - 04/08/2012 1652 EDT PATIENT LOST SPLINT AND NEEDS A NEW ONE MADE. AN APPOINTMENT WAS MADE WITH KAYLENE RANGEL FOR Thursday, 04.12. PATIENT WAS ADVISED TO CONTACT HER INSURANCE COMPANY TO WHETHER A SECOND SPLINT WOULDBE COVERED. documented in this encounter Plan of Treatment Not on file documented as of this encounter Visit Diagnoses Not on filedocumented in this encounter Care Teams Handstitching Machine Collar Feller Relationship Specialty Start Date End Date Ricardo Candelario MD [address] [facility] [address] [place] [address] PCP - General 02/27/11 09/08/18 documented as of this encounter
--- OUTSIDE RECORDS SUMMARY | 2024-03-07 15:08 | XMS_ITS | Encounter Summary ---
Author Organization [facility] Address [address] [place] [address] Care Team Providers Care Field Appraiser Name Role Phone Shadia Garcia APRN Primary Care Provider [phone] Reason for Visit * Reason Comments New Patient Visit Globus Hystericus * Referral (Routine) - Receiving Office to Obtain Authorization Specialty Diagnoses / Procedures Referred By Contact Referred To Contact Gastroenterology and Hepatology Diagnoses Globus hystericus Shadia Garcia APRN [address] [place] [address] [facility] [address] [place] [address] Referral ID Status Reason Start Date Expiration Date Visits Requested Visits Authorized [id number] Receiving Office to Obtain Authorization 1 1 Encounter Details Date Type Department Care Team (Late st Contact Info) Description 05/07/2021 14:20 EST Office Visit [facility] Gastroenterology - [address] [address] Kenny Kelly MD [address] [facility], [address] [place] [address] Dyspepsia (Primary Dx) Social History [...] Sign Reading Time Taken Comments Blood Pressure 112/69 05/07/2021 1407 EST Pulse 73 05/07/2021 1407 EST Temperature - - Respiratory Rate - - Oxygen Saturation - - Inhaled Oxygen Concentration - - Weight 61.2 kg (135 lb) 05/07/2021 1407 EST Height 152.4 cm (5') 05/07/2021 1407 EST Body Mass Index 26.37 05/07/2021 1407 EST documented in this encounter Functional Status [...] Progress Notes * Kenny Kelly MD - 05/07/2021 1420 EST Chief Complaint: No chief complaint on file. [...] been negative. She has had 2 c-sections. Past Medical History: Diagnosis Date ??? GERD (gastroesophageal reflux disease) ??? Varicella Review of Systems: Review of Systems - Gastrointestinal ROS: positive for - gas/bloating and swallowing difficulty/pain negative for - appetite loss, blood in stools, change in bowel habits, change in stools, constipation, diarrhea, hematemesis, melena or stool incontinence Physical exam: Vitals: unknown if currently . Gen: healthy, alert, and in no distress HEENT: HEAD Normocephalic. No masses, lesions, tenderness or abnormalities, EYES conjunctivae/corneas clear. PERRL, EOM's intact. and THROAT Lips, mucosa, and tongue normal. Teeth and gums normal. Oropharynx clear. Chest: chest clear, no wheezing, rales, normal symmetric air entry Heart: normal rate, regular rhythm Abdomen: flat, soft and without hepatosplenomegaly Peripheral: both carotids normal upstroke without bruits Rectal: Not Done Labs: Lab Results Component Value Date ALT 31 03/07/2015 AST 32 03/07/2015 ALKPHOS 68 03/07/2015 Lab Results Component Value Date WBC 6.72 03/07/2015 HGB 14.0 03/07/2015 HCT 41.1 03/07/2015 MCV 89 03/07/2015 PLT 287 03/07/2015 No results found for: AMYLASE Lab Results Component Value Date LIPASE 33 11/15/2005 Impression: Her symptoms are most likely related to a functional cause (functional dyspepsia with globus). Refractory GERD should also be ruled out. Plan: 1. 48- hour PH probe off PPI 2. If this is negative I would try her on a trial of amitriptyline 25 mg po at bedtime 3. If positive could consider surgical options documented in this encounter Plan of Treatment Not on file documented as of this encounter Visit Diagnoses Diagnosis Dyspepsia- Primary Dyspepsia and other specified disorders of function of stomach documented in this encounter Historical Medications * This list may reflect changes made after this encounter. Medication Sig Dispensed Refills Start Date End Date famotidine (PEPCID) 40 mg tablet Take 40 mg by mouth daily. 04/23/2021 pantoprazole (PROTONIX) 40 mg tablet Take 40 mg by mouth daily. 04/30/2021 added in this encounter Care Teams Field Appraiser Relationship Specialty Start Date End Date Shadia Garcia APRN [address] [place] [id number] PCP - General 09/09/18 documented as of this encounter
--- OUTSIDE RECORDS SUMMARY | 2024-03-07 15:08 | XMS_ITS | Encounter Summary ---
Author Organization [facility] Address [address] [place] [address] Care Team Providers Care In Flight Technician Name Role Phone Myla Garciaily Sincere ELLER Primary Care Provider [phone] Encounter Details Date Type Department Care Team (Late st Contact Info) Description 10/30/2020 Lab Requisition [facility] Pathology & Laboratory Medicine - [address] [address] Outr Resulting Lab, Provider Social History Tobacco [...] Procedure Name Priority Date/Time Associated Diagnosis Comments HIV 1/2 ANTIGEN AND ANTIBODY, 4TH GENERATION Routine 10/30/2020 10:35 EDT documented in this encounter Results * HIV 1/2 ANTIGEN AND ANTIBODY, 4TH GENERATION (10/30/2020 10:35 EDT) HIV 1 and 2 Antibody/p24 Antigen, 4th Generation Negative Negative 10/31/2020 10:57 EDT [facility] Comment: If acute HIV-1 infection is suspected in a high risk ??patient, submit plasma specimen for HIV-1 RNA quantitation test. Fourth Generation assay performed on the Siem[employer]. Blood VENOUS BLOOD / Unknown 10/30/2020 10:35 EDT 10/30/2020 21:30 EDT Provider Outr Resulting Lab IMMUNOLOGY A ND SEROLOGY ORDERABLES [facility] [address] [place] [address] documented in this encounter Visit Diagnoses Not on filedocumented in this encounter Care Teams In Flight Technician Relationship Specialty Start Date End Date Shadia Garcia APRN [address] [place] [address] PCP - General 09/09/18 documented as of this encounter
--- OUTSIDE RECORDS SUMMARY | 2024-03-07 15:09 | XMS_ITS | Encounter Summary ---
Author Organization [facility] Address [address] [place] [address] Care Team Providers Care Test Tech Name Role Phone Ricardo Candelario MD Primary Care Provider [phone] Reason for Visit * Reason Comments Rash vulvar Encounter Details Date Type Department Care Team (Late st Contact Info) Description 02/28/2011 16:15 EDT Office Visit [facility] Dermatology [address] [address] Idania Osei MD [address] [place] [phone] Unknown, MD Savanna Nyasia Guthrie MD [address] [place] [phone] Rash and other nonspecific skin eruption (Primary Dx) Social History Tobacco Use Types Packs/Day Years Used Date Smoking Tobacco: Former Alcohol Use Standard Drinks/Week Comments No 0 (1 standard drink = 0.6 oz pur e alcohol) Comments Yes Sex and Gender Information Value Date Recorded Sex Assigned at Not on file Gender Identity Female 07/31/2021 7:58 EST Sexual Orientation Not on file documented as of this encounter Patient Instructions * Patient Instructions* Nyasia Guthrie MD - 02/28/2011 16:22 EDT DERMATOLOGY - WOUND CARE INSTRUCTIONS The DRESSING/BANDAID should remain in place for 24 hours. If the dressing comes loose before then, re-tape it carefully or change the bandage. You may shower after 24 hours; remove the bandage and replace it after the shower. Do not let the forceful stream of the shower hit your wound directly. If you bathe in a tub, the bath should be brief. DISCOMFORT: Postoperative pain is usually minimal. Extra-Strength Tylenol, two tablets every four hours, usually relives any pain you may have. Do not take Ibuprofen (Motrin, Advil), Naprosyn (Aleve), and Aspirin or aspirin- containing products as they increase the chance of bleeding for 5 days after your surgery , unless approved by your provider. BLEEDING: Attention has been given to your wound to prevent bleeding. You may notice a small amountof blood on the edges of the dressing the first day and this is NORMAL. Keep your head elevated for48 hours if the surgery was on the face or scalp. If the bleeding seems persistent and soils the dressing, apply firm, steady pressure over the dressing with gauze or a wash cloth for fifteen minutes. This is usually adequate treatment. If bleeding persists, call our office at or go to the nearest Walk in Clinic or Emergency Room. ACTIVITY: Relax and limit your physical activity for the first 48 hours after the procedure. Physical activity should also be limited if the excision included the shoulder, upper arm, and/or legs forthe next 7-10 days. WOUND CARE: ?? Wash hands with soap and water before changing the dressing. ?? Change the dressing daily and when it becomes wet The suture line should be cleansed daily with tap water. You may gently loosen any crusts with a cotton swab. Pat dry. The first day the wound may be tender and may bleed slightly or ooze a small amount clear fluid. For stubborn crusting, place a wet cloth over the wound for five minutes to soak and loosen crusts. Apply a thin layer of Vaseline over the wound. It is not recommended to use triple antibiotic ointment or other ointments as they can cause allergic reactions and do not prevent infection. Cover the wound with a Telfa (non-stick) dressing or gauze pad and a piece of paper tape. It is important to keep the wound covered. If you have sutures; the provider will inform you as to when the sutures need removed. Generally this is between 7-14 days depending on the area of the wound. APPEARANCE: There may be swelling and bruising around the wound, especially near the eyes. For yourcomfort, you may apply warm, moist soaks to the bruises a few times a day, starting the third day after the procedure. You may also experience itching or ???pulling?? sensations around the wound as it heals. Healing time depends on the size, depth are of the wound. If you have concerns please callour office. If the procedure requires sutures, the suture line will be dark pink at first and the edges of the wound will be reddened. This will lighten up day by day and will be less tender. CONTACT THE OFFICE: ?? If the wound becomes increasingly red, warm to touch, increased pain, drainage with a foul odor,rapid swelling of the wound and/or if you develop a fever or chills, please call our office immediately or . documented in this encounter Ordered Prescriptions Prescription Sig Dispensed Refills Start Date End Da te cephALEXin (KEFLEX) 500 mg capsule Take 1 Cap by mouth 3 times daily. 42 Cap 0 02/28/2011 02/28/2011 documented in this encounter Progress Notes * Nyasia Guthrie MD - 03/31/2011 1129 EDTQuick Note: I called her with the results. It is now growing out fungal elements. She is much better but still has a few residual red papules. I recommended OTC lamisil BID to the outside of the labia. She will call if it is not resolved or at least significantly improved in 2 weeks. Nyasia Guthrie MD * Nyasia Guthrie MD - 03/03/2011 0848 EDTQuick Note: I contacted Cathy and she is already seeing improvement in her rash since starting the Clinda. Theinitial swab did not grow anything yet but the tissue cultures are still pending and the process seemed to be much deeper seated so this initial result is not surprising. I also left a message with Dr. Mukherjee updating him on her situation. Nyasia Guthrie MD * Nyasia Guthrie MD - 02/28/2011 8235 EDT S: Cathy is here at the request of Dr. Tera Hernandez for consultation regarding a vulvar rash that began 1 month ago around the hair follicles in the suprapubic area and has subsequently spread. Per her report, it was not particularly itchy but the fact that it was spreading was concerning. It's nowburning and tender to touch. It is so uncomfortable that she has not been wearing underwear for the past few weeks. She was started on a prescription topical antifungal 2 weeks ago (uknown type), andthere has been no improvement. She was also placed on an antibiotic last week (Cephalexin), and feels that it has gotten slightly better since initiating this. She was also briefly started on an additional antibiotic on Thursday but was seen in the ER in [place] for the rash and they told her to stop it, because they felt it was not safe in (also unknown type). She was also cultured for Herpes but it was negative. She is scheduled for a on Thursday with Dr. Mukherjee and is 38 weeks . Please refer to the rest of the visit documentation for relevant details on the review of systems, medications, allergies, and past medical, family & social history. O: Well-appearing woman, NAD, A&O x 3 Exam of the skin reveals the following: There are follicularly distributed pustules coalescing intoa large indurated erythematous plaque with multiple draining sinus tracts primarily located over the right vulva and mons pubis. Carter pus is expressed with gentle compression of the nodules and there are scattered honey-colored crusts on the surface. Hair growth is obscured in the center of the plaque. There is little prominence in the creases of the groin and no involvement of the introitus. Itextends up to just below her prior scar and there is focal involvement on the right thigh. Shotty LAD appreciated in the right inguinal basin. A/P: Rash of the vulva and mons pubis, likely a folliculitis that has almost developed into an abscess-like plaque with connected draining sinuses. I repeated bacterial cultures after incising 2 nodules with a No. 11 blade and also felt it would be helpful to do a biopsy for tissue culture. Will disconti nue the Keflex and instead start her on Clindamycin 300 mg TID for 2 weeks and contact her when culture results return (sent for bacteria/fungal/AFB). Suture removal can be with Dr. Mukherjee at the time of . Will discuss possibility of delaying section for another week if possible. Attempted to call today but office was already closed. PUNCH BIOPSY PROCEDURE NOTE PATIENT INFORMATION: Cathy Chow [id number] DATE OF PROCEDURE: 02/28/2011 SURGEON: Nyasia Guthrie MD PROCEDURE NOTE The indication, risks, benefits and alternatives to this procedure were discussed in detail in withthe patient and all questions were answered. Informed consent was obtained in writing. Specimen A Procedure: Punch Biopsy Site: right vulva Anesthesia: 1% lidocaine plain local infiltration Prep: Alcohol The lesion was prepped and anesthetized with local anestheisa. The specimen was removed with a 4.0 mm punch trephine. Hemostasis was achieved with pressure. The wound was closed with a figure of eight 4.0 Polypropylene suture. Petrolatum ointment was applied over the suture. Verbal and written wound care instructions were given. The specimen was submitted to microbiology for tissue culture. Nyasia Guthrie MD Cash Accounting Clerk of Dermatology & Mohs Surgery [facility] 02/28/2011 16:45 * Susannah Rothman - 02/28/2011 1533 EDT A complete 12 point review of systems was obtained and reviewed. All systems are negative except for: rash, itching, new or changing skin lesion, headaches, heartburn, enlarged or tender lymph nodes,depression, difficulty sleeping. Signature: Susannah Guthrie MD documented in this encounter Plan of Treatment Not on file documented as of this encounter Procedures Procedure Name Priority Date/Time Associated Diagnosis Comments AFB CULTURE/SMEAR, OTHER Routine 02/28/2011 16:33 EDT BACTERIAL CULTURE/SMEAR, TISSUE Routine 02/28/2011 16:33 EDT Rash and other nonspecific skin eruption FUNGUS CULTURE/SMEAR, TISSUE Routine 02/28/2011 16:33 EDT Rash and other nonspecific skin eruption BACTERIAL CULTURE/SMEAR Routine 02/28/2011 16:30 EDT Rash and other nonspecific skin eruption documented in this encounter Results * AFB CULTURE/SMEAR, OTHER (02/28/2011 16:33 EDT) Specimen Description Tissue Biopsy Right Vulva [facility] Acid Fast No acid-fast bacilli seen [facility] Result No acid-fast bacilli isolated [facility] Report Status 04/14/2011 Final [facility] Tissue specimen (specimen) 02/28/2011 16:33 EDT 02/28/2011 17:12 EDT Idania Osei MD MICROBIOLOGY - [facility] ORDERABLES [facility] [address] [place] [address] * BACTERIAL CULTURE/SMEAR, TISSUE (02/28/2011 16:33 EDT) Specimen Description Tissue Biopsy Right Vulva [facility] Gram Smear Result Mod Polys No bacteria seen [facility] Result Few STAPHYLOCOCCUS COAGULASE NEGATIVE, NOT LUGDUNENSIS [facility] Report Status Final 03/03/2011 [facility] Specimen of unknown material (specimen) 02/28/2011 16:33 EDT 02/28/2011 17:03 EDT Narrative Organism Antibiotic Method Susceptibility Few staphylococcus coagulase negative, not lugdunensis Vancomycin SUSCEPTIBILITY (KYLIE) 1 Susceptible Susceptible Few staphylococcus coagulase negative, not lugdunensis Oxacillin SUSCEPTIBILITY (KYLIE) >=4 Resistant Resistant Few staphylococcus coagulase negative, not lugdunensis Cefazolin SUSCEPTIBILITY (KYLIE) Resistant Few staphylococcus coagulase negative, not lugdunensis Erythromycin SUSCEPTIBILITY (KYLIE) >=8 Resistant Resistant Few staphylococcus coagulase negative, not lugdunensis Clindamycin SUSCEPTIBILITY (KYLIE) <=0.25 Susceptible Susceptible Few staphylococcus coagulase negative, not lugdunensis Trimethoprim-Sulfame thoxazole SUSCEPTIBILITY (KYLIE) <=10 Susceptible Susceptible Nyasia Guthrie MD MICROBIOLOGY - GENERAL ORDERABLES Performing Organization Address [facility] de Phone Number [facility] [address] [place] [address] * FUNGUS CULTURE/SMEAR, TISSUE (02/28/2011 16:33 EDT) Specimen Description Tissue Biopsy Right Vulva [facility] Fungal Smear No fungi seen [facility] Result Rare TRICHOPHYTON SPECIES This mould is a member of the dermatophytes, a group of fungi that affect the skin, nails, and hair (Trichophyton, Microsporum, Epidermophyton). [facility] Report Status 04/01/2011 Final [facility] Tissue specimen (specimen) 02/28/2011 16:33 EDT 02/28/2011 17:04 EDT Nyasia Guthrie MD MICROBIOLOGY - GENERAL ORDERABLES Performing Organization Address [facility] de Phone Number [facility] [address] [place] [address] * BACTERIAL CULTURE/SMEAR, OTHER (02/28/2011 16:30 EDT) Specimen Description Vulva Right PUS Specimen submitted on a swab [facility] Gram Smear Result Rare Polys No bacteria seen [facility] Result Rare Usual skin nevaeh Smear suggests minimal or no inflammation. [facility] Report Status Final 03/02/2011 [facility] Specimen of unknown material (specimen) 02/28/2011 16:30 EDT 02/28/2011 17:14 EDT Nyasia Guthrie MD MICROBIOLOGY - GENERAL ORDERABLES [facility] [address] [place] [address] documented in this encounter Visit Diagnoses Diagnosis Rash and other nonspecific skin eruption- Primary documented in this encounter Discontinued Medications Medication Sig Discontinue Reason Start Date End Da te cephALEXin (KEFLEX) 500 mg capsule Take 500 mg by mouth 3 times daily. Reorder 02/28/2011 02/28/2011 cephALEXin (KEFLEX) 500 mg capsule Take 1 Cap by mouth 3 times daily. Alternate therapy 02/28/2011 02/28/2011 documented as of this encounter Care Teams Test Tech Relationship Specialty Start Date End Date Ricardo Candelario MD [address] [facility] [address] [place] [address] PCP - General 02/27/11 09/08/18 documented as of this encounter
--- OUTSIDE RECORDS SUMMARY | 2024-03-07 15:09 | XMS_ITS | Encounter Summary ---
Author Organization [facility] Address [address] [place] [address] Care Team Providers Care Geospatial Intelligence Analyst Name Role Phone Unavailable Primary Care Provider Unavailabl e Encounter Details Date Type Department Care Team (Late st Contact Info) Description 08/10/2002 Results Only [facility] - [facility] conversion [address] [place] [address] Tanya Odonnell, ROUND CUTTER OPERATOR Social History Tobacco Use Types Packs/Day Years Used Date Smoking Tobacco: Never Assessed Sex and Gender Information Value Date Recorded Sex Assigned at Not on file Gender Identity Female 07/31/2021 7:58 EST Sexual Orientation Not on file documented as of this encounter Plan of Treatment Not on file documented as of this encounter Procedures Procedure Name Priority Date/Time Associated Diagnosis Comments CYTOPATHOLOGY Routine 08/10/2002 0:00 EST documented in this encounter Results * CYTOPATHOLOGY (08/10/2002 0:00 EST) Pathology Report: CYTOPATHOLOGY REPORT Reports generated via electronic interface contain original data; however they are lacking the format of the original report. Caution should be taken when reading/interpreti ng unformatted reports. Name: ? HENRIQUEZZENY ? Accession #: ? [id number] : ? 1980 (Age: 22) ??F ?Collect Date: ? 08/10/2002 Location: ? [facility] ? Receive Date: ? 08/12/2002 Provider: ?TANYA ODONNELL APRN Copy to: ? Specimen/Source: ?ThinPrep Pap Test, Cervix/Endocervix Last Menstrual Period: ? 08/02/02 Hormonal/Contracep tive Status: ? Yes Previous Gynecologic Pathology: ? 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 Colposcopy: 01/21 nl Cryotherapy: 11/20 HSIL Other: ? HPVA - HPV testing requested if ASC-US on the current ThinPrep Pap test. ? SPECIMEN ADEQUACY ? Satisfactory for Evaluation - transformation zone component present GENERAL CATEGORIZATION ? Negative for Intraepithelial Lesion or Malignancy ? Document reviewed and electronically signed by: ? Neva Harris, THOMAS(ASCP)(IAC) ? Report Date: ??08/16/2002 10:46 End of Report [facility] 08/10/2002 08/12/2002 Tanya Odonnell APRN PATHOLOGY ORDER JOHN [facility] [address] [place] [address] documented in this encounter Visit Diagnoses Not on filedocumented in this encounter
--- OUTSIDE RECORDS SUMMARY | 2024-03-07 15:09 | XMS_ITS | Encounter Summary ---
Author Organization [facility] Address [address] [place] [address] Care Team Providers Care Business Control Manager Name Role Phone Unavailable Primary Care Provider Unavailabl e Encounter Details Date Type Department Care Team (Late st Contact Info) Description 09/08/2000 Results Only [facility] - [place] conversion [address] [place] [address] Crisotbal Morales MD Social History Tobacco Use Types Packs/Day Years Used Date Smoking Tobacco: Never Assessed Sex and Gender Information Value Date Recorded Sex Assigned at Not on file Gender Identity Female 07/31/2021 7:58 EST Sexual Orientation Not on file documented as of this encounter Plan of Treatment Not on file documented as of this encounter Procedures Procedure Name Priority Date/Time Associated Diagnosis Comments CYTOPATHOLOGY Routine 09/08/2000 0:00 EST documented in this encounter Results * CYTOPATHOLOGY (09/08/2000 0:00 EST) Pathology Report: CYTOPATHOLOGY REPORT Reports generated via electronic interface contain original data; however they are lacking the format of the original report. Caution should be taken when reading/interpreti ng unformatted reports. Name: ? ZENY HENRIQUEZ ? Accession #: ? [id number] : ? 1980 (Age: 20) ??F ?Collect Date: ? 09/08/2000 Location: ? [facility] ? Receive Date: ? 09/10/2000 Provider: ?CRISTOBAL MORALES MD Copy to: ? Specimen/Source: ?ThinPrep Pap Test, Cervix/Endocervix Last Menstrual Period: ? 02/?/01 Hormonal/Contracep tive Status: ? Yes ? SPECIMEN ADEQUACY ? Satisfactory for evaluation. GENERAL CATEGORIZATION ? Epithelial Cell Abnormality DESCRIPTIVE DIAGNOSIS ? High grade squamous intraepithelial lesion (HSIL). ? Document reviewed and electronically signed by: ? Margarita Calvert MD ? Report Date: ??09/18/2000 17:45 End of Report [facility] 09/08/2000 09/10/2000 Cristobal Morales MD PATHOLOGY ORDERABLES [facility] [address] [place] [address] documented in this encounter Visit Diagnoses Not on filedocumented in this encounter
--- OUTSIDE RECORDS SUMMARY | 2024-03-07 15:09 | XMS_ITS ---
Author Organization Unknown Address [address] [place] [phone] Phone Care Team Providers Care Bilingual Counter Sales Retail Name Role Phone ARMIDA Olson Attending Unavailable Social History Type Status Start Date End Date Code Code Syst em Smoking History Never smoker (Never Smoked) [id number] SNOMED CT Sex Female Hospital Discharge Instructions Should you have any questions prior to discharge, please contact a member of your healthcare team. If you have left the hospital and have any questions, please contact your primary care physician. Reason For Referral No Data Found Plan of Treatment MM SCREEN BILAT 10/02/2023 Encounters Encounter Diagnosis Start Date Code Code Sys tem Dysphagia, pharyngeal phase 09/17/2023 SNOMED-CT Personal Care Team Section Performer Name Performer Role Active Date Inactive Da te
--- OUTSIDE RECORDS SUMMARY | 2024-03-07 15:09 | XMS_ITS | Encounter Summary ---
Author Organization [facility] Address [address] [place] [address] Care Team Providers Care Legislative Director Name Role Phone Unavailable Primary Care Provider Unavailabl e Encounter Details Date Type Department Care Team (Late st Contact Info) Description 11/15/2005 Office Visit [facility] - Maple conversion [address] [place], [place] [id number] Caridad Tabor MD [address] [facility], Level [address] [place] [address] Social History Tobacco Use Types Packs/Day Years Used Date Smoking Tobacco: Never Assessed Sex and Gender Information Value Date Recorded Sex Assigned at Not on file Gender Identity Female 07/31/2021 7:58 EST Sexual Orientation Not on file documented as of this encounter Progress Notes * Caridad Tabor MD - 08/15/2009 194 EST Department - Physician Summary Registration Date/Time: 11/15/2005 11:58 LABS, X-RAYS, AND EKG CT Head: Note (small local bleeding near fracture site, depressed skull fracture 1/2 width of table). Head CT performed without contrast. The head CT was interpreted by the radiologist. PROGRESS AND PROCEDURES E.D. Course: WF with fall, head injury with skull fracture and bleed, pt is for BST eval, I contacted neurosurg as well to initate care, would like repeat CT for assess of interval change. BST eval done, defer to neurosurg for admit, ortho to see pt in regards toshoulder pain with neg films . Patient/family counseled. (Electronically signed by Caridad Tabor M.D. 11/15/2005 15:51) AddZENY Tee VisitID: [id number] Date: 11/15/2005 11/15/2005 11:18 CASSIA TAKES REPORT: PT COMING BY CAR FROM [facility], FELL DOWN BASEMENT STAIRS, LEFT ARM PAIN, NO RECALL, SKULL FX, ? SDH ON CT, ? LEFT SHOULDER ROTATOR CUFF TEAR. BP 127/74, HR 100, RR 18, TEMP 98.4, 2 PERCOSET, 500 KEFLEX. signed by Nia Friend - 11/15/2005 11:18) Department - Nursing Summary Registration Date/Time: 11/15/2005 11:58 TRIAGE Initial Assessment Triage time 11:59 Nov 15 2005 . Acuity: LEVEL 3. BP: 124 / 70. HR: 96. RR: 16. Temp: 36.8 tympanic. Alert. --1206 Joelle Giang R.N. Medications None. --1206 Joelle Giang R.N. Allergies No known drug allergies. --1206 Joelle Giang R.N. History Chief Complaint: FALL and ( unknown injury, assumed fall down basement stairs, transferred from [facility] for depressed skull fx, ? SDH). This occurred last night. Pain level now: 4/10. ( also c/o L arm and kneediscomfort. See transfer paperwork). PAST HX: Negative. Tetanus status: unknown. Last normal menstrual period - last week. SOCIAL HX: Occasional alcohol use (admits to 5-6 drinks last night). Nonsmoker. No report of abuse. Arrived by private vehicle and accompanied by mother. Historian: patient and mother. --1206 Joelle Giang R.N. NURSING PROGRESS NOTES Progress gowned. Call light placed in reach. Side rails up x 1. Bed placed in lowest position. Brakes of bedon. --1211 Venkata Haley Patient transported to [place] by stretcher with tech. --1322 Lauren Villarreal R.N. IV started: #1 site, right antecubital space, 18g angiocath, using aseptic technique, with good blood return; one attempt. Saline lock placed; flushed with saline. --1333 Lauren Villarreal R.N. Blood samples drawn from the peripheral IV site by nurse and sent to lab: red, green, purple, blue and tiger top. --1333 Lauren Villarreal R.N. Patient transported to radiology by stretcher with tech. --1333 Lauren Villarreal R.N. BP: 107 / 60. HR: 82. RR: 16. Patient reports current painlevel as 09/29. --1409 Lauren Villarreal R.N. DILANTIN 1gm IVPB in 100 mL NS over 1 hour, via IV pump. IV patency established. IV site checked: no pain, redness, or swelling. IV flushed thoroughly pre- and post-medication administration. . --1430 Lauren Villarreal R.N. BP: 118 / 85. --1434 Lauren Villarreal R.N. BP: 111 / 65. HR: 85. RR: 16. O2 saturation: 99 %. The patient reports no complaints. Overall patient status - the patient states feels better. Denies nausea. Denies pain. Alert. Oriented X 3. No respiratory distress. Patient returned from radiology by stretcher with nurse. --1529 Mauri Guzman R.N. Visitor at bedside. --1529 Mauri Guzman R.N. Patient waiting for consult and for (by ortho). --1538 Mauri Guzman R.N. DISPOSITION / DISCHARGE Admitted (m6). Transported via stretcher by [employer]. Report was given (rn). --1459 Lauren Villarreal R.N. Departure time: 1545. --1538 Orlin Lemus R.N., E.M.T. Elma Rickards R.N. Andrea Phillips, R.N. Locked/Released at 11/15/2005 23:11 by Mauri Guzman R.N. documented in this encounter Plan of Treatment Not on file documented as of this encounter Visit Diagnoses Not on filedocumented in this encounter
--- OUTSIDE RECORDS SUMMARY | 2024-03-07 15:09 | XMS_ITS | Encounter Summary ---
Author Organization [facility] Address [address] [place] [address] Care Team Providers Care Charger Operator Helper Name Role Phone Unavailable Primary Care Provider Unavailabl e Encounter Details Date Type Department Care Team (Late st Contact Info) Description 01/24/2002 Results Only [facility] - Maple conversion [address] [place] [address] Cristobal Morales MD Social History Tobacco Use Types [...] Priority Date/Time Associated Diagnosis Comments CYTOPATHOLOGY Routine 01/24/2002 0:00 EDT documented in this encounter Results * CYTOPATHOLOGY (01/24/2002 0:00 EDT) Pathology Report: CYTOPATHOLOGY REPORT Reports generated via electronic interface contain original data; however they are lacking the format of the original report. Caution should be taken when reading/interpreti ng unformatted reports. Name: ? ZENY HENRIQUEZ ? Accession #: ? [id number] : ? 1980 (Age: 21) ??F ?Collect Date: ? 01/24/2002 Location: ? [facility] ? Receive Date: ? 01/26/2002 Provider: ?CRISTOBAL MORALES MD Copy to: ? Specimen/Source: ?ThinPrep Pap Test, Cervix/Endocervix Last Menstrual Period: ? 01/15/02 Hormonal/Contracep tive Status: ? Yes Previous Gynecologic Pathology: ? HSIL: 11/20 ASC-US: 11/20 Treatment History: ? Cryotherapy: 11/20 Other: ? HPVA - HPV testing requested if ASC-US on the current ThinPrep Pap test. ? SPECIMEN ADEQUACY ? Satisfactory for Evaluation - transformation zone component present GENERAL CATEGORIZATION ? Negative for Intraepithelial Lesion or Malignancy INTERPRETATION ? Reactive cellular changes associated with inflammation present (includes repair). Fungal organisms present morphologically consistent with Brit species. ? Document reviewed and electronically signed by: ? SANJUANA CAIN MD ? Report Date: ??02/02/2002 12:23 End of Report ABIDA CLEMENTE 01/24/2002 01/26/2002 Cristobal Morales MD PATHOLOGY ORDERABLES Performing Organization Address City/State/[facility] Co de Phone Number ABIDA CLEMENTE [address] [place] [address] documented in this encounter Visit Diagnoses Not on filedocumented in this encounter
--- OUTSIDE RECORDS SUMMARY | 2024-03-07 15:09 | XMS_ITS | Encounter Summary ---
Author Organization [facility] Address [address] [place] [address] Care Team Providers Care Technical Healthcare Consultant Name Role Phone Unavailable Primary Care Provider Unavailabl e Encounter Details Date Type Department Care Team (Late st Contact Info) Description 05/12/2000 Results Only [facility] - Maple conversion [address] [place] [address] Cristobal Morales MD Social History Tobacco Use [...] Priority Date/Time Associated Diagnosis Comments CYTOPATHOLOGY Routine 05/12/2000 0:00 EST documented in this encounter Results * CYTOPATHOLOGY (05/12/2000 0:00 EST) Pathology Report: CYTOPATHOLOGY REPORT Reports generated via electronic interface contain original data; however they are lacking the format of the original report. Caution should be taken when reading/interpreti ng unformatted reports. Name: ? ZENY HENRIQUEZ ? Accession #: ? [id number] : ? 1980 (Age: 20) ??F ?Collect Date: ? 05/12/2000 Location: ? [facility] ? Receive Date: ? 05/18/2000 Provider: ?CRISTOBAL MORALES MD Copy to: ? Specimen/Source: ?ThinPrep Pap Test, Cervix/Endocervix Last Menstrual Period: ? 04/23/00 Hormonal/Contracep tive Status: ? Yes: DMPA Previous Gynecologic Pathology: ? ASC-US: ÓSCAR Treatment History: ? Colposcopy: ? SPECIMEN ADEQUACY ? Satisfactory for evaluation. GENERAL CATEGORIZATION ? Epithelial Cell Abnormality DESCRIPTIVE DIAGNOSIS ? Atypical squamous cells of undetermined significance (ASCUS), favor reactive process. RECOMMENDATION ? Recommend repeat Pap test in 3-6 months or further follow up, as clinically indicated. ? Document reviewed and electronically signed by: ? ELDON RUIZ MD ? Report Date: ??05/29/2000 08:31 End of Report ABIDA CLEMENTE 05/12/2000 05/18/2000 Cristobal Morales MD PATHOLOGY ORDERABLES Performing Organization Address City/State/[facility] Co de Phone Number ABIDA CLEMENTE [address] [place] [address] documented in this encounter Visit Diagnoses Not on filedocumented in this encounter
--- OUTSIDE RECORDS SUMMARY | 2024-03-07 15:09 | XMS_ITS | Encounter Summary ---
Author Organization [facility] Address [address] [place] [address] Care Team Providers Care Explosive Ordnance Technician Name Role Phone Unavailable Primary Care Provider Unavailabl e Encounter Details Date Type Department Care Team (Late st Contact Info) Description 10/13/2001 Results Only [facility] - Map conversion [address] [place] [address] Cristobal Morales MD Social History Tobacco Use [...] Priority Date/Time Associated Diagnosis Comments CYTOPATHOLOGY Routine 10/13/2001 0:00 EDT documented in this encounter Results * CYTOPATHOLOGY (10/13/2001 0:00 EDT) Pathology Report: CYTOPATHOLOGY REPORT Reports generated via electronic interface contain original data; however they are lacking the format of the original report. Caution should be taken when reading/interpreti ng unformatted reports. Name: ? ZENY HENRIQUEZ ? Accession #: ? [id number] : ? 1980 (Age: 21) ??F ?Collect Date: ? 10/13/2001 Location: ? [facility] ? Receive Date: ? 10/15/2001 Provider: ?CRISTOBAL MORALES MD Copy to: ? Specimen/Source: ?ThinPrep Pap Test, Cervix/Endocervix Last Menstrual Period: ? 09/13/01 Hormonal/Contracep tive Status: ? Yes Previous Gynecologic Pathology: ? 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 Cryotherapy: 11/20 Other: ? Client ID#: [id number] ? SPECIMEN ADEQUACY ? Satisfactory for Evaluation - transformation zone component present GENERAL CATEGORIZATION ? Epithelial Cell Abnormality INTERPRETATION ? Squamous Cell Abnormality - Atypical squamous cells, undetermined significance. Fungal organisms present morphologically consistent with Brit species. EDUCATIONAL NOTES/RECOMMENDATI ONS ? Recommend clinical correlation and further evaluation, as clinically indicated. ? Document reviewed and electronically signed by: ? SANJUANA CAIN MD ? Report Date: ??10/21/2001 11:06 End of Report ABIDA CLEMENTE 10/13/2001 10/15/2001 Cristobal Morales MD PATHOLOGY ORDERABLES Performing Organization Address City/State/[facility] Co de Phone Number ABIDA CLEMENTE [address] [place] [address] documented in this encounter Visit Diagnoses Not on filedocumented in this encounter
--- OUTSIDE RECORDS SUMMARY | 2024-03-07 15:09 | XMS_ITS | Encounter Summary ---
Author Organization [facility] Address [address] [place] [address] Care Team Providers Care Fiscal Accountant Name Role Phone Unavailable Primary Care Provider Unavailabl e Encounter Details Date Type Department Care Team (Late st Contact Info) Description 12/19/2005 Before PRISM Converted Visit (Maple) [facility] - Maple conversion [address] [place] [address] Prabha Talbert PA-C [address] [facility], [facility] [address] [place] [address] Social History Tobacco Use Types Packs/Day Years Used Date Smoking Tobacco: Never Assessed Sex and Gender Information Value Date Recorded Sex Assigned at Not on file Gender Identity Female 07/31/2021 7:58 EST Sexual Orientation Not on file documented as of this encounter Progress Notes * Prabha Talbert PA - 06/01/2009 1256 EST DIVISION OF NEUROSURGERY PROGRESS/FOLLOWUP NOTE - 12/19/2005 December 19, 2005 Brice Benton MD [facility] [address] [place] [address] Benton: I saw Cathy Minaya today for followup in clinic. She is doing well after her surgery. She has no complaints today and has not had any symptoms for the past few weeks. She will be followed up for tornrotator cuff in her left arm. We need no further followup with Ms. Minaya at this time unless her symptoms should change. Thank you very much for this referral. Sincerely, Signed by Dean Andrade MD 01/05/2006 11:38 Reji Rodney PAMichael A Horgan, MDAssociate ProfessorUniversity of [place] Medical CenterDivision of Neurological Surgery Dictated by: ZORA Mo Dean Andrade MD Electric Motor Repairing Supervisor [facility] [place] [facility] Division of Neurological Surgery - ZORA Mo P - bb Job ID: [id number] Document ID: [id number] cc: Ricardo Candelario MD documented in this encounter Plan of Treatment Not on file documented as of this encounter Visit Diagnoses Not on filedocumented in this encounter
--- OUTSIDE RECORDS SUMMARY | 2024-03-07 15:09 | XMS_ITS ---
Author Organization Unknown Address [address] [place] [phone] Phone Care Team Providers Care Operations Superintendent Name Role Phone ARMIDA Olson Attending Unavailable Results MM SCREENING BILAT MAMMO W T JASPAL W CAD - Completed: 10/02/2023 14:59 LOINC: [facility] [place], [place] [address] PACS MOVIE EDITOR REPORT Patient Name: ZENY SAM MRN: Sex: : Age: [id number] F 1980 43 Account: Accession: Admit: StayType: [id number] 10/02/2023 O/P Ordered: Order ID: Submitted: Ordering Provider: 10/02/2023 14:42 [id number] KT DHRUV HUFFMAN Completed: Technologist: Resulted: 10/02/2023 14:59 KVK 10/02/2023 15:05 Study Description: MM SCREENING BILAT MAMMO W LOPEZ W CAD Study Reason: Screening Comparisons: This is a baseline examination. FINDINGS: Mammography/Tomosynthesis: Masses/Architectural Distortion: None seen. Microcalcifictions: No suspicious pleomorphic-type are seen. Skin Thickening/Nipple Retraction: None. IMPRESSION: 1. No evidence of malignancy is noted. 2. Unless there is more urgent need, follow-up screening mammography is recommended, as per [place] [employer] guidelines. BI-RADS Category 1: Negative BI_RADS Density Category B: Scattered areas of fibroglandular density Breast density Category C or D implies that the patient has dense breast tissue. Dense breast tissue can make it harder to find cancer on a mammogram. Dense breast tissue is also associated with an increased risk of breast cancer. This information about the result of the mammogram report was provided to the patient to raise their awareness. Use this report when you speak with the patient about their risks for breast cancer, which includes their family history. At that time, you may recommend additional screening tests (Ultrasound or MRI) as these tests may add significant information. A negative radiographic report should not delay biopsy if a dominant or clinically suspicious mass is present. Up to ten percent of cancers are not identified on mammography. A negative report may reinforce clinical impression. Adenosis and dense breasts may obscure an underlying neoplasm. False positive reports average 6 to 10%. Patient will receive a letter notifying them of these results. Report Digitally Signed by Edgard Bustos on 10/02/2023 03:05 PM EDT XR HIP 2 OR 3V INC PELVIS RT * - Completed: 10/02/2023 15:07 [facility]: [facility] [place], [place] [address] PACS MOVIE EDITOR REPORT Patient Name: ZENY SAM MRN: Sex: : Age: [id number] F 1980 43 Account: Accession: Admit: StayType: [id number] 10/02/2023 O/P Ordered: Order ID: Submitted: Ordering Provider: 10/02/2023 14:42 [id number] KT DHRUV HUFFMAN Completed: Technologist: Resulted: 10/02/2023 15:07 KVK 10/02/2023 16:26 Study Description: XR HIP 2 OR 3V INC PELVIS RT Study Reason: RT HIP PAIN Technique: 2D digital imaging was performed of the right hip. 2 images were obtained. COMPARISON: None. FINDINGS: Bones: No acute fractures present. No bony destructive lesion is seen. Joints: No dislocation is present. The joint spaces are well-maintained. Soft tissues: Unremarkable. IMPRESSION: Unremarkable radiographs of the hip. Report Digitally Signed by Edgard Bustos on 10/02/2023 04:26 PM EDT Social History Type Status Start Date End Date Code Code Syst em Smoking History Never smoker (Never Smoked) [id number] SNOMED CT Sex Female Hospital Discharge Instructions Should you have any questions prior to discharge, please contact a member of your healthcare team. If you have left the hospital and have any questions, please contact your primary care physician. Reason For Referral No Data Found Plan of Treatment MM SCREEN BILAT 10/02/2023 Encounters Encounter Diagnosis Start Date Code Code Sys tem Screening mammography 10/02/2023 [id number] SNOMED -CT Personal Care Team Section Performer Name Performer Role Active Date Inactive Da marta
--- OUTSIDE RECORDS SUMMARY | 2024-03-07 15:09 | XMS_ITS | Encounter Summary ---
Author Organization [facility] Address [address] [place] [address] Care Team Providers Care Supervisor [employer] Name Role Phone Unavailable Primary Care Provider Unavailabl e Encounter Details Date Type Department Care Team (Late st Contact Info) Description 11/15/2005 14:24 EDT - 11/16/2005 11:59 EDT Hospital Encounter [facility] Neurosurgery Unit [address] [place] [address] Dean Andrade MD [address] [place] [id number] Caridad Tabor MD [address] [facility], [address] [place] [phone] Discharge Disposition: Home or Self Care Social History Tobacco Use Types Packs/Day Years Used Date Smoking Tobacco: Never Assessed Sex and Gender Information Value Date Recorded Sex Assigned at Not on file Gender Identity Female 07/31/2021 7:58 EST Sexual Orientation Not on file documented as of this encounter Discharge Disposition Disposition Code Departure Means Destination Home or Self Care documented in this encounter Plan of Treatment Not on file documented as of this encounter Procedures Procedure Name Priority Date/Time Associated Diagnosis Comments CT HEAD WO CONTRAST 11/16/2005 7 :43 EDT CREATININE Routine 11/16/2005 5:28 EDT PTT Routine 11/16/2005 5:28 EDT PROTIME Routine 11/16/2005 5:28 EDT COMPLETE BLOOD COUNT AND DIFFERENTIAL Routine 11/16/2005 5:28 EDT BUN Routine 11/16/2005 5:28 EDT ELECTROLYTES Routine 11/16/2005 5:28 EDT SHOULDER 1 VIEW 11/15/2005 15:14 EDT URINE MICROSCOPIC Routine 11/15/2005 14: 33 EDT URINALYSIS WITH MICROSCOPIC IF POSITIVE Routine 11/15/2005 14:33 EDT PELVIS 1 OR 2 VIEWS 11/15/2005 1 3:49 EDT CHEST PA AND LATERAL 11/15/2005 13:48 EDT TRAUMA PACK MAJOR Routine 11/15/2005 13: [address] HEAD WO CONTRAST 11/15/2005 1 3:24 EDT documented in this encounter Results * CT HEAD WO CONTRAST (11/16/2005 7:43 EDT) Anatomical Region Laterality Modality Other 11/16/2005 7:43 EDT Narrative 01/06/2009 13:12 EDT temporal fx, temporal contusion, s/p fall, evaluate for interval change HEAD CT WITHOUT CONTRAST, 11/16/05 COMPARISONS: 11/15/05. HISTORY: Follow-up closed head injury with skull fracture. TECHNIQUE: Transverse non-contrast CT scans of the brain were performed from the foramen magnum to the vertex. FINDINGS: Comparison 11/15/05. Again identified is a left squamous temporal fracture that extends into the left sphenotemporal buttress. ??There is no evidence of intracranial hemorrhage, mass effect or midline shift. ??Attenuation throughout the cerebral hemispheres, brainstem and cerebellum is normal. ??The ventricles and extraaxial cerebrospinal fluid spaces are normal for age. ??Orbits are clear. CONCLUSIONS: No interval change left temporal skull fracture, minimally depressed and extending into the left sphenotemporal buttress. D: ??11/16/05 T: ??11/18/05 /[facility]. Procedure Note Koby Bradley MD - 01/06/2009 temporal fx, temporal contusion, s/p fall, evaluate for interval change HEAD CT WITHOUT CONTRAST, 11/16/05 COMPARISONS: 11/15/05. HISTORY: Follow-up closed head injury with skull fracture. TECHNIQUE: Transverse non-contrast CT scans of the brain were performed from the foramen magnum to the vertex. FINDINGS: Comparison 11/15/05. Again identified is a left squamous temporal fracture that extends into the left sphenotemporal buttress. There is no evidence of intracranial hemorrhage, mass effect or midline shift. Attenuation throughout the cerebral hemispheres, brainstem and cerebellum is normal. The ventricles and extraaxial cerebrospinal fluid spaces are normal for age. Orbits are clear. CONCLUSIONS: No interval change left temporal skull fracture, minimally depressed and extending into the left sphenotemporal buttress. /[facility]. Dean Andrade MD IMG CT ORDERABLES * PTT (11/16/2005 5:28 EDT) PTT 29 20 - 35 secs [facility] Comment:Therapeutic Heparin range: 70-105 seconds 11/16/2005 5:28 EDT 11/16/2005 5:50 EDT Dean Andrade MD HEMATOLOGY & PF4 ORD ERABLES [facility] [address] [place] [address] * PROTIME (11/16/2005 5:28 EDT) Pro Time 14.6 12.0 - 15.0 secs [facility] I.N.R. 1.1 0.9 - 1.1 Ratio [facility] Comment: Moderate Intensity Coumadin INR = 2.0-3.0 Adjustments in anticoagulant therapy dose should be based upon the INR and NOT the Pro Time. 11/16/2005 5:28 EDT 11/16/2005 5:50 EDT Dean Andrade MD HEMATOLOGY & PF4 ORD ERABLES Performing Organization Address [facility] de Phone Number [facility] [address] [place] [address] * (ABNORMAL) ELECTROLYTES (11/16/2005 5:28 EDT) Sodium 135(L) 136 - 145 mEq/L [facility] Comment:Slight hemolysis Potassium 4.4 3.5 - 5.0 mEq/L [facility] Comment: Hemolysis may elevate potassium result. Slight hemolysis Chloride 111(H) 96 - 110 mEq/L [facility] Comment:Slight hemolysis CO2 20(L) 24 - 32 mEq/L [facility] Comment:Slight hemolysis 11/16/2005 5:28 EDT 11/16/2005 5:50 EDT Dean Andrade MD CHEMISTRY & BLOOD GA S ORDERABLES Performing Organization Address [facility] de Phone Number [facility] [address] [place] [address] * CREATININE (11/16/2005 5:28 EDT) Creatinine 0.7 0.7 - 1.5 mg/dl [facility] Comment:Slight hemolysis 11/16/2005 5:28 EDT 11/16/2005 5:50 EDT Dean Andrade MD HISTORICAL LAB FOR S Q LOAD Performing Organization Address [facility] de Phone Number [facility] [address] [place] [address] * (ABNORMAL) HEMAGRAM AND DIFFERENTIAL (11/16/2005 5:28 EDT) WBC 8.41 4.0 - 12.4 K/cmm [facility] RBC 4.11 3.86 - 5.04 M/cmm [facility] Hemoglobin 12.5 11.6 - 15.2 gm/dl [facility] HCT 36.1 34.9 - 44.4 % [facility] MCV 88 81 - 98 fl [facility] MCH 30.4 26.7 - 33.3 pg [facility] MCHC 34.5 32.1 - 35.9 gm/dl [facility] PLT 289 141 - 320 K/cmm [facility] RDW-CV 12.6 11.7 - 14.6 % [facility] % Neutrophils 78.0 45.5 - 79.7 % [facility] % Lymphocytes 13.4(L) 15.0 - 46.8 % [facility] % Monocytes 7.4 1.8 - 12.0 % [facility] % Eosinophils 0.2(L) 0.6 - 6.9 % [facility] % Basophils 1.0 0.2 - 1.4 % [facility] ABS Neutrophils 6.55 2.20 - 8.85 K/cmm [facility] ABS Lymphs 1.13 1.09 - 3.30 K/cmm [facility] ABS Monocytes 0.63 0.1 - 0.8 K/cmm [facility] ABS Eosinophils 0.02(L) 0.03 - 0.61 K/cmm [facility] ABS Basophils 0.08 0.01 - 0.11 K/cmm [facility] Type of Diff: Automated [facility] 11/16/2005 5:28 EDT 11/16/2005 5:50 EDT Dean Andrade MD PACKAGES & DNA PROBE ORDERABLES Performing Organization Address City/State/[facility] Co de Phone Number [facility] [address] [place] [address] * BUN (11/16/2005 5:28 EDT) BUN 10 10 - 26 mg/dl [facility] Comment: Results may be affected due to hemolysis. Slight hemolysis 11/16/2005 5:28 EDT 11/16/2005 5:50 EDT Dean Andrade MD CHEMISTRY & BLOOD GA S ORDERABLES Performing Organization Address City/State/[facility] Co de Phone Number [facility] [address] [place] [address] * SHOULDER 1 VIEW (11/15/2005 15:14 EDT) Anatomical Region Laterality Modality Other 11/15/2005 15:1 4 EDT Narrative 01/06/2009 13:12 EDT FALL, NO FRACTURE R/O DISLOCATION SINGLE VIEW OF THE LEFT SHOULDER: 11/15/05 No comparisons. CLINICAL HISTORY: Fall. ??Rule out fracture or dislocation. FINDINGS: Single view of the left shoulder is obtained, which demonstrates no evidence for fracture or dislocation. ??If there is persistent pain, a dedicated shoulder study may be performed for further evaluation. [facility] I have personally reviewed the images and the above interpretation and agree with the findings. Procedure Note Niranjan Mccall MD / Edgard Sam MD - 01/06/2009 FALL, NO FRACTURE R/O DISLOCATION SINGLE VIEW OF THE LEFT SHOULDER: 11/15/05 No comparisons. CLINICAL HISTORY: Fall. Rule out fracture or dislocation. FINDINGS: Single view of the left shoulder is obtained, which demonstrates no evidence for fracture or dislocation. If there is persistent pain, a dedicated shoulder study may be performed for further evaluation. [facility] I have personally reviewed the images and the above interpretation and agree with the findings. Idania Hair MD IMG DIAGNOSTIC IMAGI NG ORDERABLES * (ABNORMAL) URINE MICROSCOPIC (11/15/2005 14:33 EDT) WBC, UA 1 to 5 0 - 5 /HPF [facility] RBC, UA 1 to 5 0 - 5 /HPF [facility] Squam Epithel, UA Many(A) NS /HPF [facility] Renal Epithel, UA None seen NS /HPF [facility] Bacteria, UA None seen NS /HPF [facility] Crystals, UA None seen /HPF [facility] Hyaline Casts, UA None seen /LPF [facility] UA Comment Microscopic results are unreliable on urines unrefrig >2hrs or refrig >8hrs. [facility] 11/15/2005 14:3 3 EDT 11/15/2005 14:33 EDT Dean Andrade MD URINALYSIS ORDERABLE S Performing Organization Address [facility] de Phone Number [facility] [address] [place] [address] * (ABNORMAL) URINALYSIS (11/15/2005 14:33 EDT) Color, UA Yellow [facility] Clarity, UA Clear [facility] Glucose, UA Norm NORM [facility] Bilirubin, UA Neg NEG [facility] Ketones, UA Small(A) NEG [facility] Specific [place], Urine 1.025 1.005 - 1.02 [facility] Blood, UA Neg NEG [facility] pH, UA 6.5 5.0 - 9.0 [facility] Protein, UA 2+(A) NEG [facility] Urobilinogen, UA Norm NORM mg/dL [facility] Nitrite, UA Neg NEG [facility] Leuk Esterase Neg NEG [facility] 11/15/2005 14:3 3 EDT 11/15/2005 14:33 EDT Dean Andrade MD URINALYSIS ORDERABLE S Performing Organization Address [facility] Phone Number [facility] [address] [place] [address] * PELVIS 1 OR 2 VIEWS (11/15/2005 13:49 EDT) Anatomical Region Laterality Modality Other 11/15/2005 13:4 9 EDT Narrative 01/06/2009 13:12 EDT S/P TRAUMATIC FALL R/O FRACTURES, DISLOCATIONS AP VIEW OF THE PELVIS: 11/15/05 PA & LATERAL VIEWS OF THE CHEST: 11/15/05 CLINICAL HISTORY: S/p traumatic fall. ??Rule out fractures or dislocations. FINDINGS: AP view of the pelvis demonstrates normal bony mineralization, without evidence for fracture or dislocation. PA and lateral views of the chest demonstrate no evidence for fracture or pneumothorax. ??The cardiomediastinal silhouette is normal. ??The lungs are clear. ??There are no pleural effusions. ??The pulmonary vascularity is within normal limits. IMPRESSION: No evidence for fracture or dislocation in the pelvis or chest. /[facility] I have personally reviewed the images and the above interpretation and agree with the findings. Procedure Note Niranjan Mccall MD / Edgard Sam MD - 01/06/2009 S/P TRAUMATIC FALL R/O FRACTURES, DISLOCATIONS AP VIEW OF THE PELVIS: 11/15/05 PA & LATERAL VIEWS OF THE CHEST: 11/15/05 CLINICAL HISTORY: S/p traumatic fall. Rule out fractures or dislocations. FINDINGS: AP view of the pelvis demonstrates normal bony mineralization, without evidence for fracture or dislocation. PA and lateral views of the chest demonstrate no evidence for fracture or pneumothorax. The cardiomediastinal silhouette is normal. The lungs are clear. There are no pleural effusions. The pulmonary vascularity is within normal limits. IMPRESSION: No evidence for fracture or dislocation in the pelvis or chest. /[facility] I have personally reviewed the images and the above interpretation and agree with the findings. Caridad Tabor MD IMG DIAGNOSTIC IMAGI NG ORDERABLES * CHEST PA AND LATERAL (11/15/2005 13:48 EDT) Anatomical Region Laterality Modality Other 11/15/2005 13:4 8 EDT Narrative 01/06/2009 13:12 EDT S/P TRAUMATIC FALL R/O FRACTURES, DISLOCATIONS AP VIEW OF THE PELVIS: 11/15/05 PA & LATERAL VIEWS OF THE CHEST: 11/15/05 CLINICAL HISTORY: S/p traumatic fall. ??Rule out fractures or dislocations. FINDINGS: AP view of the pelvis demonstrates normal bony mineralization, without evidence for fracture or dislocation. PA and lateral views of the chest demonstrate no evidence for fracture or pneumothorax. ??The cardiomediastinal silhouette is normal. ??The lungs are clear. ??There are no pleural effusions. ??The pulmonary vascularity is within normal limits. IMPRESSION: No evidence for fracture or dislocation in the pelvis or chest. /[facility] I have personally reviewed the images and the above interpretation and agree with the findings. Procedure Note Niranjan Mccall MD / Edgard Sam MD - 01/06/2009 S/P TRAUMATIC FALL R/O FRACTURES, DISLOCATIONS AP VIEW OF THE PELVIS: 11/15/05 PA & LATERAL VIEWS OF THE CHEST: 11/15/05 CLINICAL HISTORY: S/p traumatic fall. Rule out fractures or dislocations. FINDINGS: AP view of the pelvis demonstrates normal bony mineralization, without evidence for fracture or dislocation. PA and lateral views of the chest demonstrate no evidence for fracture or pneumothorax. The cardiomediastinal silhouette is normal. The lungs are clear. There are no pleural effusions. The pulmonary vascularity is within normal limits. IMPRESSION: No evidence for fracture or dislocation in the pelvis or chest. /[facility] I have personally reviewed the images and the above interpretation and agree with the findings. Caridad Tabor MD IMG DIAGNOSTIC IMAGI NG ORDERABLES * (ABNORMAL) PROFILE TRAUMA PACK - MAJOR (BLOOD BANK NOT INCLUDED) (11/15/2005 13:25 EDT) BUN 10 10 - 26 mg/dl [facility] Calcium 8.8 8.5 - 10.5 mg/dl [facility] Calculated Calcium 8.9 8.5 - 10.5 mg/dl [facility] WBC 13.56(H) 4.0 - 12.4 K/cmm [facility] RBC 4.59 3.86 - 5.04 M/cmm [facility] Hemoglobin 13.8 11.6 - 15.2 gm/dl [facility] HCT 40.0 34.9 - 44.4 % [facility] MCV 87 81 - 98 fl [facility] MCH 30.0 26.7 - 33.3 pg [facility] MCHC 34.5 32.1 - 35.9 gm/dl [facility] PLT 350(H) 141 - 320 K/cmm [facility] RDW-CV 12.5 11.7 - 14.6 % [facility] CK 332(H) 30 - 135 U/L [facility] MB 3.7 0 - 5.0 ng/ml [facility] CK-MB Index Not calculated , normal MB. 0 - 2.5 [facility] Creatinine 0.7 0.7 - 1.5 mg/dl [facility] Neutrophils 92.0(H) 45.5 - 79.7 % [facility] Lymphocytes 7.0(L) 15.0 - 46.8 % [facility] Monocytes 1.0(L) 1.8 - 12.0 % [facility] ABS Neutrophils 12.47(H) 2.20 - 8.85 K/cmm [facility] ABS Lymphs 0.95(L) 1.09 - 3.30 K/cmm [facility] ABS Monocytes 0.14 0.1 - 0.8 K/cmm [facility] RBC Morphology [facility] Type of Diff: Manual [facility] [address] [facility] Lipase 33 0 - 250 U/L [facility] Albumin 4.3 3.4 - 4.9 g/dl [facility] Total Protein 7.7 6.5 - 8.3 g/dl [facility] Total Alkaline Phosphatase 78 38 - 126 U/L [facility] ALT 22 9 - 52 U/L [facility] AST 33 15 - 46 U/L [facility] Unconjugated Bilirubin 0.6 0.1 - 1.1 mg/dl [facility] Conjugated Bilirubin 0.0 0.0 - 0.3 mg/dl [facility] Bilirubin, Total <0.5 0.2 - 1.3 mg/dl [facility] Sodium 138 136 - 145 mEq/L [facility] Potassium 4.4 3.5 - 5.0 mEq/L [facility] Chloride 106 96 - 110 mEq/L [facility] CO2 23(L) 24 - 32 mEq/L [facility] Magnesium 1.8 1.7 - 2.8 mg/dl [facility] Phosphorus 4.6(H) 2.5 - 4.5 mg/dl [facility] Pro Time 14.3 12.0 - 15.0 secs [facility] I.N.R. 1.1 0.9 - 1.1 Ratio [facility] Comment: Moderate Intensity Coumadin INR = 2.0-3.0 Adjustments in anticoagulant therapy dose should be based upon the INR and NOT the Pro Time. PTT 28 20 - 35 secs [facility] Comment:Therapeutic Heparin range: 70-105 seconds Glucose, Serum 99 70 - 100 mg/dl [facility] Troponin I pre 2011 <0.15 ng/ml [facility] Comment: normal: less than 0.15 indeterminate: 0.15-1.50 positive: greater than 1.50 11/15/2005 13:2 5 EDT 11/15/2005 13:38 EDT Default Emergency MD PACKAGES & DNA PROB E ORDERABLES Performing Organization Address City/State/[facility] Co de Phone Number [facility] [address] [place] [address] * CT HEAD WO CONTRAST (11/15/2005 13:24 EDT) Anatomical Region Laterality Modality Other 11/15/2005 13:2 4 EDT Narrative 01/06/2009 13:12 EDT hx fall and + loc + depressed skull fx ? bleed r/o fx bleed CT HEAD WITHOUT CONTRAST 11/15/05 CLINICAL HISTORY: ??fell with head injury and loss of consciousness, possible depressed skull fracture. TECHNIQUE: Transverse non-contrast CT scans of the brain were performed from the foramen magnum to the vertex. FINDINGS: Scans show a linear skull fracture involving the left frontal bone and squamous portion of the temporal bone. There is approximately 1mm of inward displacement. No evidence of intracranial hemorrhage, mass effect or midline shift is seen. CONCLUSION: Linear minimally depressed left frontal and squamous temporal bone fracture without evidence of intracranial hemorrhage or midline shift. D 11/15/05 T 11/18/05 /mindi Procedure Note Koby Bradley MD - 01/06/2009 hx fall and + loc + depressed skull fx ? bleed r/o fx bleed CT HEAD WITHOUT CONTRAST 11/15/05 CLINICAL HISTORY: fell with head injury and loss of consciousness, possible depressed skull fracture. TECHNIQUE: Transverse non-contrast CT scans of the brain were performed from the foramen magnum to the vertex. FINDINGS: Scans show a linear skull fracture involving the left frontal bone and squamous portion of the temporal bone. There is approximately 1mm of inward displacement. No evidence of intracranial hemorrhage, mass effect or midline shift is seen. CONCLUSION: Linear minimally depressed left frontal and squamous temporal bone fracture without evidence of intracranial hemorrhage or midline shift. D 11/15/05 T 11/18/05 /mindi Caridad Tabor MD IMG CT ORDERABLES documented in this encounter Visit Diagnoses Not on filedocumented in this encounter
--- OUTSIDE RECORDS SUMMARY | 2024-03-07 15:09 | XMS_ITS | Encounter Summary ---
Author Organization [facility] Address [address] [place] [address] Care Team Providers Care Squaring Machine Operator Name Role Phone Unavailable Primary Care Provider Unavailabl e Encounter Details Date Type Department Care Team (Late st Contact Info) Description 04/06/[address] [facility] - Map conversion [address] [place] [address] rCistobal Morales MD Social History Tobacco Use Types [...] Priority Date/Time Associated Diagnosis Comments CYTOPATHOLOGY Routine 04/06/2001 0:00 EDT documented in this encounter Results * CYTOPATHOLOGY (04/06/2001 0:00 EDT) Pathology Report: CYTOPATHOLOGY REPORT Reports generated via electronic interface contain original data; however they are lacking the format of the original report. Caution should be taken when reading/interpreti ng unformatted reports. Name: ? ZENY HENRIQUEZ ? Accession #: ? [id number] : ? 1980 (Age: 21) ??F ?Collect Date: ? 04/06/2001 Location: ? [facility] ? Receive Date: ? 04/08/2001 Provider: ?CRISTOBAL MORALES MD Copy to: ? Specimen/Source: ?ThinPrep Pap Test, Cervix/Endocervix Last Menstrual Period: ? 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 Cryotherapy ? SPECIMEN ADEQUACY ? Satisfactory for evaluation. GENERAL CATEGORIZATION ? Epithelial Cell Abnormality DESCRIPTIVE DIAGNOSIS ? Atypical squamous cells of undetermined significance (ASCUS), cannot rule out squamous intraepithelial lesion (ÓSCAR). RECOMMENDATION ? Recommend clinical correlation and further evaluation, as clinically indicated. ? Document reviewed and electronically signed by: ? Lourdes Cazares MD ? Report Date: ??04/16/2001 08:37 End of Report [facility] 04/06/2001 04/08/2001 Cristobal Morales MD PATHOLOGY ORDERABLES [facility] [address] [place] [address] documented in this encounter Visit Diagnoses Not on filedocumented in this encounter
--- OUTSIDE RECORDS SUMMARY | 2024-03-07 15:09 | XMS_ITS | Encounter Summary ---
Author Organization [facility] Address [address] [place] [address] Care Team Providers Care Friction Saw Operator Name Role Phone Unavailable Primary Care Provider Unavailabl e Encounter Details Date Type Department Care Team (Late st Contact Info) Description 11/18/2005 Office Visit [facility] - Maple conversion [address], [place] [address] Jabari Walsh MD [address] [facility], [address] [place] [address] Social History Tobacco Use Types Packs/Day Years Used Date Smoking Tobacco: Never Assessed Sex and Gender Information Value Date Recorded Sex Assigned at Not on file Gender Identity Female 07/31/2021 7:58 EST Sexual Orientation Not on file documented as of this encounter Progress Notes * Jabari Walsh MD - 08/16/2009 0432 EST Department - Physician Summary Registration Date/Time: 11/18/2005 10:30 Time Seen: 11 : 20 AM. Arrived- By private vehicle. Historian - patient and family. HISTORY OF PRESENT ILLNESS Chief Complaint- INJURY TO HEAD and NAUSEA. The accident occurred about 3 days ago. Fell (down basement stairs, probable. ). Occurred at home. Pt came home after a night out, drank about 5 beers. Went to bed, awoke in AM with L shoulder pain and multiple abrasions, unsure of mechanism, but believes she fell down basement stairs. Pt was seen in [facility] ED, admitted for observation overnight for small SDH and depressed skull fx 1/[address] head [address] unchanged, d/c home with F/U. This Am noted mild wheezing and SOB,as well as continued N/V. The patient complains of mild pain. The patient sustained a blow to the head. REVIEW OF SYSTEMS The patient has had nausea and weakness, ( mildly weak this AM, general, no focal weakness). She has had vomiting (since fall. Vomited x1 prior to being seen in hospital of liquid. Was nauseous during hospital stay, but did not vomit due to lack of food. Since discharge, pt has vomited 4-5x on Thursday, 4-5 times this AM, of mostly liquid, no blood. ). The patient has had difficulty breathing (mildly SOB this AM with emesis spells). No hearing loss, chest pain, depression, loss of vision or bladder dysfunction. No laceration or fever. Has not recently been ill. MCADAMS, left temporal/frontal since fall. feels like skull pain rather than MCADAMS. PAST HISTORY Negative. No history of heart disease, lung disease, renal disease, hypertension or neurological disease. No history of GI disease, other disease or diabetes mellitus. No history of previous surgery. Medications: Percocet and dilantin since Thursday. Allergies: No known drug allergies. SOCIAL HISTORY Occasional alcohol use. Nonsmoker. ADDITIONAL NOTES The nursing notes have been reviewed with agreement regarding the chief complaint, HPI, PMH and patient medications and allergies. PHYSICAL EXAM Appearance: Alert. No acute distress. No backboard or C-collar. Does not appear to be anxious or inpain. Vital Signs: Have been reviewed and appear to be correct - Head: Head non-tender. No Solis's sign or raccoon eyes. Left denominational: mild tenderness. No erythema,swelling, laceration, abrasion or ecchymosis. No deformity. Eyes: Pupils equal, round and reactive to light. EOM intact. ENT: No dental injury. Pharynx normal. Neck: Painless ROM. Neck non-tender. CVS: Heart sounds normal. Pulses normal. No cardiac murmur. Respiratory: Breath sounds normal. Chest nontender. No rales, wheezes or rhonchi. Abdomen: Mild tenderness diffusely. No guarding, rebound tenderness or Petersen's, obturator or psoassign present. Abdomen soft and nontender. No organomegaly. Back: No back tenderness. ROM normal. Skin: Skin intact. Normal skin color and turgor. Skin warm and dry. Extremities: Mild abrasions present on the left upper extremity, left shoulder and left upper arm. Left shoulder: mild tenderness and multiple abrasions. Limited ROM (diminished abduction, adduction,flexion and extension). Neurovascular intact distally (Holding arm in flexed position). No erythema, swelling, laceration, ecchymosis or deformity. No joint effusion. Pelvis stable. No lower extremity edema. Neuro: Oriented X 3. Mood/affect normal. Speech normal. Normal gait. No sensory deficit. Reflexes normal. LABS, X-RAYS, AND EKG X-Rays: Chest X-ray. Chest X-ray: No acute disease. Normal lung markings present. Normal heart size. Mediastinum normal.Great vessels normal. Soft tissue normal. No infiltrate. No fracture. No bony lesion present. Views: PA and lateral. Technique: good. The chest X-ray was independently viewed by me, interpreted contemporaneously by me and discussed with the radiologist. CT Head: No acute changes. Head CT performed without contrast. The head CT was independently viewedby me, interpreted contemporaneously by me and discussed with the radiologist. A comparison with prior studies. PROGRESS AND PROCEDURES E.D. Course: Zofran 4 mg IVP. . Discussed case with physician Dr. Moreno of Neurosurgery. Reviewed test results. Agreed upon needfor patient follow-up. Old medical records ordered. Disposition: Discharged home. Condition: stable. Discharged home in stable condition. CLINICAL IMPRESSION Nausea (Secondary to recent depressed skull fracture with L temporal contusion). Sprained left shoulder (Possible Rotator Cuff Tear). INSTRUCTIONS Wear simple sling as needed. No restrictions to activity. No dietary restrictions. Continue currentmedications (Percocet as needed). Warnings: HEAD INJURY PRECAUTIONS: An observer must check on the patient frequently for the next 24hours to confirm that the patient responds as expected, is not confused, has no new weakness or numbness, and has no other problems. GENERAL WARNINGS: Return or contact your physician immediately if your condition worsens or changesunexpectedly, if not improving as expected, or if other problems arise. Specifically return if painor vomiting worsens. Prescription Medications: Phenergan 25 mg tablets: every 6 hours as needed for nausea or vomiting. Dispense twenty (20). One refill. Generic substitute OK. Follow-up: Follow up with Dr Silas Perdomo of [facility] [phone] for L shoulder. Call for appointment for next available appt, within 1 week. Follow up with Dr. BARRAGAN in 4 weeks. CALL [phone] FOR APPOINTMENT. Understanding of the discharge instructions verbalized by patient. (Electronically signed by Jabari Walsh M.D. 11/18/2005 19:55) Department - Nursing Summary Registration Date/Time: 11/18/2005 10:30 TRIAGE Initial Assessment Triage time 10:31 . Acuity: LEVEL 3. BP: 118 / 80. HR: 84. RR: 18. Temp: 37.0 tympanic. Alert. --1035 Leora Barrientos R.N. Medications ( percocet, dilantin-?). --1035 Leora Barrientos R.N. Allergies No known drug allergies. --1035 Leora Barrientos R.N. History Chief Complaint: NAUSEA and ( Pt states the nausea comes and goes, pt was eating on arrival. Pt is on Percocet for arm injury and fractured skull, pt fell on last Thursday.). Onset- Since last Thursday. Pain level now: 09/29. PAST HX: ( Traumatic head injury last Thursday). SOCIAL HX: Occasional alcohol use. Nonsmoker. Arrived by private vehicle and accompanied by family. Historian: patient and family. --1035 Leora Barrientos R.N. NURSING PROGRESS NOTES Progress Patient gowned. Patient walked with [employer] (room 30). Call light placed in reach. Side rails up x 1. Bed placed in lowest position. Brakes of bed on. --1039 Venkata Chavis Patient transported to [place] by stretcher. --1213 Stella Gaxiola R.N. ( zofran 4 mg given iv). --1213 Stella Gaxiola R.N. BP: 127 / 71 lying. HR: 94. RR: 16. Temp: 37.5 oral. O2 saturation: 100% room air. The patient is calm and resting quietly. Patient reports current pain level as 6/10 (R frontal h/a). Denies nausea. ( Pt states I don't feel nauseous. By the time I got here today the nausea was gone. I just have a headache, the same one I've been having since the fall, I just haven't taken any percoset since 4 a.m Pt states she wants to go home. ). --1345 Helena Garcia R.N. Reassessment after fluids administered and medication administered. Patient reports current pain (nausea gone). --1407 Lauren Villarreal R.N. IV / I&O Flowsheet IV site #1: location right antecubital space. Started: 22g angiocath; aseptic technique used; good blood return noted; one attempt. Saline lock in place. IV patent. No redness or swelling at site. IVline accessed - flushed with saline (IV started by EMT-I student Anthony Hines). --1212 Felisa Ramirez IV site discontinued: IV catheter intact, dressing applied and (by pt). INTAKE: 1 liters IV Total. --1408 Lauren Villarreal R.N. DISPOSITION / DISCHARGE reports pain level on departure as 3/10. Condition at departure: improved. No learning barriers present. Discharge instructions reviewed with the patient and parent. Reviewed medication; prescription(s) given to the patient. Patient and parent verbalized understanding. Written instructions provided in Estonian. The patient was discharged home and accompanied by parent. The patient left the Emergency Department ambulatory and via private vehicle. Parent driving. --0488 Orlin Cruz R.N., E.M.T. Elida Gundersen Kitty Hayes, R.N. Elizabeth Dalton R.N. Elma Rickards, R.N. Locked/Released at 11/18/2005 14:09 by Lauren Villarreal R.N. documented in this encounter Plan of Treatment Not on file documented as of this encounter Visit Diagnoses Not on filedocumented in this encounter
--- OUTSIDE RECORDS SUMMARY | 2024-03-07 15:09 | XMS_ITS | Encounter Summary ---
Author Organization [facility] Address [address] [place] [address] Care Team Providers Care Brazer Assembler Name Role Phone Ricardo Candelario MD Primary Care Provider [phone] Reason for Visit * Reason Comments New Patient Visit vulva irritation for about 1 month-started as a rash and is getting worse this last week Encounter Details Date Type Department Care Team (Late st Contact Info) Description 02/28/2011 13:00 EDT Office Visit [facility] - [address] [address] Edgard Hernandez MD MSc Acute vulvitis (Primary Dx) Social History Tobacco Use Types [...] Sign Reading Time Taken Comments Blood Pressure 110/70 02/28/2011 1311 EDT Pulse - - Temperature - - Respiratory Rate - - Oxygen Saturation - - Inhaled Oxygen Concentration - - Weight - - Height - - Body Mass Index - - documented in this encounter Progress Notes * Edgard Hernandez MD - 02/28/2011 1700 EDT S. 31 yo with severe vulvar discomfort. Started about one month ago at 35 wks. First noticed iliana on innner thigh and vulva. Over the past month has treated it with a number of different topicals including nystatin powder, triamcinolone, and vaseline. It is gotten significantly worse. Has been on keflex for the past 10d. O. Indurated inflamed rt vulva from just below old pfannenstiel to lower edge of introitus A. Possibly a mild dermatitis that has been made more complex by reaction to various topicals with superimposed bacterial infection P. Because of the uncertain nature of the problem and because of imminent will seek immediate consultation with dermatology. Edgard Hernandez MD documented in this encounter Plan of Treatment Not on file documented as of this encounter Visit Diagnoses Diagnosis Acute vulvitis- Primary Vaginitis and vulvovaginitis, unspecified documented in this encounter Historical Medications * This list may reflect changes made after this encounter. Medication Sig Dispensed Refills Start Date End Date cephALEXin (KEFLEX) 500 mg capsule Take 500 mg by mouth 3 times daily. 02/28/2011 02/28/2011 gabapentin (NEURONTIN) 300 mg capsule Take 300 mg by mouth 3 times daily. 10/04/2014 added in this encounter Care Teams Brazer Assembler Relationship Specialty Start Date End Date Ricardo Candelario MD [address] [place] [address] PCP - General 02/27/11 09/08/18 documented as of this encounter
--- OUTSIDE RECORDS SUMMARY | 2024-03-07 15:09 | XMS_ITS | Encounter Summary ---
Author Organization [facility] Address [address] [place] [address] Care Team Providers Care Preschool Assistant Principal Name Role Phone Unavailable Primary Care Provider Unavailabl e Encounter Details Date Type Department Care Team (Latest Contact Info) Description 12/19/2005 13:04 EDT Hospital Encounter [facility] [place] [address] [place] [address] Dean Andrade MD [address] [place] [phone] Discharge Disposition: Auto Discharge Social History Tobacco Use Types Packs/Day Years Used Date Smoking Tobacco: Never Assessed Sex and Gender Information Value Date Recorded Sex Assigned at Not on file Gender Identity Female 07/31/2021 7:58 EST Sexual Orientation Not on file documented as of this encounter Discharge Disposition Disposition Code Departure Means Destination Auto Discharge documented in this encounter Plan of Treatment Not on file documented as of this encounter Procedures Procedure Name Priority Date/Time Associated Diagnosis Comments CYTOPATHOLOGY Routine 02/13/2009 0:00 EDT HPV DETECTION, HIGH RISK TYPES Routine 01/06/2008 11:05 EDT CYTOPATHOLOGY Routine 01/06/2008 0:00 EDT CYTOPATHOLOGY Routine 01/06/2008 0:00 EDT documented in this encounter Results * CYTOPATHOLOGY (02/13/2009 0:00 EDT) Pathology Report: CYTOPATHOLOGY REPORT ? Reports generated via electronic interface contain original data; ? however they are lacking the format of the original report. ? Caution should be taken when reading/interpreti ng unformatted reports. ? Name: ? ZENY HENRIQUEZ ? Accession #: ? [id number] ? : ? 1980 (Age: 28) ??F ?Collect Date: ? 02/13/2009 ? Location: ? [facility] ? Receive Date: ? 02/15/2009 ? Provider: ?L ADELFO MUKHERJEE MD ? Copy to: ? Specimen/Source: ?Pap Test, Cervix, ThinPrep Imaging System with manual ?? evaluation ? Last Menstrual Period: ? Breast ? Hormonal/Contracep tive Status: ? Yes: Micronor ? Previous Gynecologic Pathology: ? Yes: Abn pap years ago ? Other: ? HPVA - HPV testing requested if ASC-US on the current ThinPrep Pap test. ? SPECIMEN ADEQUACY ? Satisfactory for Evaluation ? - transformation zone component present ? GENERAL CATEGORIZATION ? Negative for Intraepithelial Lesion or Malignancy ? INTERPRETATION ? Fungal organisms present morphologically consistent with Brit species. ? Document reviewed and electronically signed by: ? Honey Swanlogg, CT(ASCP) ? Report Date: ??2009 15:20 ? End of Report ? [facility] 02/13/2009 02/15/2009 Glen Mukherjee MD PATHOLOGY ORDERABLES Performing Organization Address [facility] de Phone Number [facility] [address] [place] [address] * HUMAN PAPILLOMA VIRUS DNA TEST (01/06/2008 11:05 EDT) Specimen Description Cervix, ThinPrep vial [facility] Result Negative for HPV types 16, 18, 31, 33, 35, 39, 45, 51, 52, 56, 58, 59, and 68. [facility] Report Status Final [id number] [facility] 01/06/2008 11:0 5 EDT 01/17/2008 11:05 EDT Glen Mukherjee MD MICROBIOLOGY - GENER AL ORDERABLES Performing Organization Address [facility] de Phone Number [facility] [address] [place] [address] * CYTOPATHOLOGY (01/06/2008 0:00 EDT) Pathology Report: CYTOPATHOLOGY REPORT Reports generated via electronic interface contain original data; however they are lacking the format of the original report. Caution should be taken when reading/interpreti ng unformatted reports. Name: ? FLORENCE ZENY ? Accession #: ? [id number] : ? 1980 (Age: 27) ??F ?Collect Date: ? 01/06/2008 Location: ? [facility] ? Receive Date: ? 01/07/2008 Provider: ?L ADELFO MUKHERJEE MD Copy to: ? Specimen/Source: ?ThinPrep Pap Test, Cervix, processed on [facility] ThinPrep Imaging System, with manual evaluation Last Menstrual Period: ? 10/12/07 Menstrual/Pregnanc y Status: ? Treatment History: ? Colposcopy: Hx Other: ? HPVA - HPV testing requested if ASC-US on the current ThinPrep Pap test. ? SPECIMEN ADEQUACY ? Satisfactory for Evaluation - transformation zone component present GENERAL CATEGORIZATION ? Epithelial Cell Abnormality INTERPRETATION ? Squamous Cell Abnormality - Atypical squamous cells, undetermined significance (ASC-US). Fungal organisms present morphologically consistent with Brit species. EDUCATIONAL NOTES/RECOMMENDATI ONS ? [facility] recommends following the 2006 Consensus Guidelines for the Management of Women with Abnormal Cervical Cancer Screening Tests (JLGTD, 2007;11(4):201-222 ). ??Consensus guidelines are available online at www.ASCCP.org. ? Document reviewed and electronically signed by: ? Margarita Calvert MD ? Report Date: ??01/16/2008 11:49 End of Report [facility] 01/06/2008 01/07/2008 Glen Mukherjee MD PATHOLOGY ORDERABLES [facility] [address] [place] [address] * CYTOPATHOLOGY (01/06/2008 0:00 EDT) Pathology Report: CYTOPATHOLOGY REPORT ? Reports generated via electronic interface contain original data; ? however they are lacking the format of the original report. ? Caution should be taken when reading/interpreti ng unformatted reports. ? Name: ? ZENY HENRIQUEZ ? Accession #: ? [id number] ? : ? 1980 (Age: 27) ??F ?Collect Date: ? 01/06/2008 ? Location: ? [facility] ? Receive Date: ? 01/07/2008 ? Provider: ?L ADELFO MUKHERJEE MD ? Copy to: ? Specimen/Source: ?ThinPrep Pap Test, Cervix, processed on [employer] ThinPrep ?? Imaging System, with manual evaluation ? Last Menstrual Period: ? 4/22/08 ? Menstrual/Pregnanc y Status: ? Treatment History: ? Colposcopy: Hx ? Other: ? HPVA - HPV testing requested if ASC-US on the current ThinPrep Pap test. ? SPECIMEN ADEQUACY ? Satisfactory for Evaluation ? - transformation zone component present ? GENERAL CATEGORIZATION ? Epithelial Cell Abnormality ? INTERPRETATION ? Squamous Cell Abnormality - Atypical squamous cells, undetermined ? significance (ASC-US). ? Fungal organisms present morphologically consistent with Brit species. ? EDUCATIONAL NOTES/RECOMMENDATI ONS ? [facility] recommends following the 2006 Consensus Guidelines for the Management of Women with Abnormal Cervical Cancer Screening Tests (JLGTD, ? 2007;11(4):201-222 ). ??Consensus guidelines are available online at ? www.ASCCP.org. ? Document reviewed and electronically signed by: ? Margarita C Calvert MD ? Report Date: ??01/16/2008 11:49 ? End of Report ? [facility] 01/06/2008 01/07/2008 Glen Mukherjee MD PATHOLOGY ORDERABLES [facility] [address] [place] [address] documented in this encounter Visit Diagnoses Not on filedocumented in this encounter
--- OUTSIDE RECORDS SUMMARY | 2024-03-07 15:09 | XMS_ITS | Encounter Summary ---
Author Organization [facility] Address [address] [place] [address] Care Team Providers Care Logging Shovel Operator Name Role Phone Unavailable Primary Care Provider Unavailabl e Encounter Details Date Type Department Care Team (Late st Contact Info) Description 02/15/2003 Results Only [facility] - Map conversion [address] [place] [address] Tanya Odonnell, LIFE SUPPORT TECHNICIAN Social History Tobacco Use Types Packs/Day Years Used Date Smoking Tobacco: Never Assessed Sex and Gender Information Value Date Recorded Sex Assigned at Not on file Gender Identity Female 07/31/2021 7:58 EST Sexual Orientation Not on file documented as of this encounter Plan of Treatment Not on file documented as of this encounter Procedures Procedure Name Priority Date/Time Associated Diagnosis Comments CYTOPATHOLOGY Routine 02/15/2003 0:00 EDT documented in this encounter Results * CYTOPATHOLOGY (02/15/2003 0:00 EDT) Pathology Report: CYTOPATHOLOGY REPORT Reports generated via electronic interface contain original data; however they are lacking the format of the original report. Caution should be taken when reading/interpreti ng unformatted reports. Name: ? ZENY HENRIQUEZ ? Accession #: ? [id number] : ? 1980 (Age: 22) ??F ?Collect Date: ? 02/15/2003 Location: ? [facility] ? Receive Date: ? 02/17/2003 Provider: ?TANYA ODONNELL APRN Copy to: ? Specimen/Source: ?ThinPrep Pap Test, Cervix/Endocervix Last Menstrual Period: ? 02/03/03 Hormonal/Contracep tive Status: ? Yes Previous Gynecologic Pathology: ? HSIL: 03/22 ASC-US: ?ÓSCAR Treatment History: ? Colposcopy: Normal ? SPECIMEN ADEQUACY ? Satisfactory for Evaluation - transformation zone component present GENERAL CATEGORIZATION ? Negative for Intraepithelial Lesion or Malignancy ? Document reviewed and electronically signed by: ? THOMAS Patten(ASCP) ? Report Date: ??02/22/2003 14:17 End of Report [facility] 02/15/2003 02/17/2003 Tanya Odonnell LIFE SUPPORT TECHNICIAN PATHOLOGY ORDER JOHN [facility] [address] [place] [address] documented in this encounter Visit Diagnoses Not on filedocumented in this encounter
--- OUTSIDE RECORDS SUMMARY | 2024-03-07 15:09 | XMS_ITS | Encounter Summary ---
Author Organization [facility] Address [address] [place] [address] Care Team Providers Care Puff Iron Operator Name Role Phone Unavailable Primary Care Provider Unavailabl e Encounter Details Date Type Department Care Team (Late st Contact Info) Description 10/20/2000 Results Only [facility] - [place] conversion [address] [place] [address] Cristobal Morales MD Social History Tobacco Use [...] Priority Date/Time Associated Diagnosis Comments CYTOPATHOLOGY Routine 10/20/2000 0:00 EDT documented in this encounter Results * CYTOPATHOLOGY (10/20/2000 0:00 EDT) Pathology Report: CYTOPATHOLOGY REPORT Reports generated via electronic interface contain original data; however they are lacking the format of the original report. Caution should be taken when reading/interpreti ng unformatted reports. Name: ? ZENY HENRIQUEZ ? Accession #: ? [id number] : ? 1980 (Age: 20) ??F ?Collect Date: ? 10/20/2000 Location: ? [facility] ? Receive Date: ? 10/22/2000 Provider: ?CRISTOBAL MORALES MD Copy to: ? Specimen/Source: ?ThinPrep Pap Test, Cervix/Endocervix Last Menstrual Period: ? 10/15/00 Previous Gynecologic Pathology: ? HSIL: 08/20 Other: ? Colposcopy Pap and/or biopsy in progress ? SPECIMEN ADEQUACY ? Satisfactory for evaluation. GENERAL CATEGORIZATION ? Epithelial Cell Abnormality DESCRIPTIVE DIAGNOSIS ? Low grade squamous intraepithelial lesion (LSIL). Atypical glandular cells of undetermined significance (CHRISTIANO), favor reactive process. Predominance of coccobacilli present consistent with shift in vaginal nevaeh. ? COMMENT ? Rare groups of atypical endocervical cells are identified with nuclear crowding and overlap. Within these groups, mitotic figures are present. ??A reactive process is favored. ??Please correlate with colposcopic biopsies. ? Document reviewed and electronically signed by: ? Yael Starkey MD ? Report Date: ??10/27/2000 14:27 End of Report [facility] 10/20/2000 10/22/2000 Cristobal Morales MD PATHOLOGY ORDERABLES [facility] [address] [place] [address] documented in this encounter Visit Diagnoses Not on filedocumented in this encounter
--- OUTSIDE RECORDS SUMMARY | 2024-03-07 15:09 | XMS_ITS | Encounter Summary ---
Author Organization [facility] Address [address] [place] [address] Care Team Providers Care Brake Drum Lathe Operator Name Role Phone Unavailable Primary Care Provider Unavailabl e Encounter Details Date Type Department Care Team (Latest Contact Info) Description 11/18/2005 10:39 EDT - 11/18/2005 11:59 EDT Hospital Encounter [facility] Emergency Department - [address] [place] [address] [place], [place] [address] Emergency, Default, MD Discharge Disposition: Home or Self Care Social [...] Procedure Name Priority Date/Time Associated Diagnosis Comments CHEST PA AND LATERAL 11/18/2005 12:[address] HEAD WO CONTRAST 11/18/2005 1 2:21 EDT documented in this encounter Results * CHEST PA AND LATERAL (11/18/2005 12:39 EDT) Anatomical Region Laterality Modality Other 11/18/2005 12:3 9 EDT Narrative 01/06/2009 13:58 EDT FALL WITH 4D SOCIAL WORK JOB TITLES SHORTNESS OF BREATH WHEEZING THIOS MORNING R/O PNRUMOTHORAX PULMINARY CONTUSION 2 views of the Chest were obtained. Clinical Indication: FALL WITH ??4D SOCIAL WORK JOB TITLES SHORTNESS OF BREATH ??WHEEZING THIOS MORNING ??R/O PNRUMOTHORAX PULMINARY CONTUSION FINDINGS: The evaluation of the soft tissues and bony structures are normal. ??The heart is normal in size and configuration. ??The lungs are clear. ??The mediastinal and hilar contours are normal. ??No pleural abnormality is seen. ??The visualized portion of the upper abdomen is normal. IMPRESSION: Normal frontal and lateral chest radiographs. Procedure Note Wiley Short MD - 01/06/2009 FALL WITH 4D SOCIAL WORK JOB TITLES SHORTNESS OF BREATH WHEEZING THIOS MORNING R/O PNRUMOTHORAX PULMINARY CONTUSION 2 views of the Chest were obtained. Clinical Indication: FALL WITH 4D SOCIAL WORK JOB TITLES SHORTNESS OF BREATH WHEEZING THIOS MORNING R/O PNRUMOTHORAX PULMINARY CONTUSION FINDINGS: The evaluation of the soft tissues and bony structures are normal. The heart is normal in size and configuration. The lungs are clear. The mediastinal and hilar contours are normal. No pleural abnormality is seen. The visualized portion of the upper abdomen is normal. IMPRESSION: Normal frontal and lateral chest radiographs. Jabari Walsh MD IMG DIAGNOSTIC IMAG ING ORDERABLES * CT HEAD WO CONTRAST (11/18/2005 12:21 EDT) Anatomical Region Laterality Modality Other 11/18/2005 12:2 1 EDT Narrative 01/06/2009 13:35 EDT S/P FALL 4D, SMALL LOCAL BLEEDING W/ DEPRESSED SKULL FX, REPEAT CT TO EVAL CHANGE, INC VOMITING, R/O SDH CT OF THE HEAD WITHOUT CONTRAST HISTORY: Patient with known left temporal bone fracture. ??She is having persistent headaches and vomiting. ??Evaluate for intracranial hemorrhage. COMPARISON EXAMINATIONS: 11/16/05 and 11/15/05. TECHNIQUE: Transverse non-contrast CT scans of the brain were performed from the foramen magnum to the vertex. FINDINGS: Acute intracranial hemorrhage is not present. ??The ventricles and sulci are normal for age. ??There is no mass effect or midline shift. The examination again demonstrates a fracture of the squamous portion of the left temporal bone extending to the left sphenotemporal buttress similar in appearance to prior examinations. ??The paranasal sinuses are otherwise clear and no orbital abnormality is evident. IMPRESSION: 1. ??No acute intracranial hemorrhage. 2. ??Stable appearance of the left temporal bone fracture. D: ??11/18/2005 T: ??11/19/2005 [facility] I have personally reviewed the images and the above interpretation and agree with the findings. Procedure Note Cristobal Andre Jr., MD / Koby Bradley MD - 01/06/2009 S/P FALL 4D, SMALL LOCAL BLEEDING W/ DEPRESSED SKULL FX, REPEAT CT TO EVAL CHANGE, INC VOMITING, R/O SDH CT OF THE HEAD WITHOUT CONTRAST HISTORY: Patient with known left temporal bone fracture. She is having persistent headaches and vomiting. Evaluate for intracranial hemorrhage. COMPARISON EXAMINATIONS: 11/16/05 and 11/15/05. TECHNIQUE: Transverse non-contrast CT scans of the brain were performed from the foramen magnum to the vertex. FINDINGS: Acute intracranial hemorrhage is not present. The ventricles and sulci are normal for age. There is no mass effect or midline shift. The examination again demonstrates a fracture of the squamous portion of the left temporal bone extending to the left sphenotemporal buttress similar in appearance to prior examinations. The paranasal sinuses are otherwise clear and no orbital abnormality is evident. IMPRESSION: 1. No acute intracranial hemorrhage. 2. Stable appearance of the left temporal bone fracture. /[facility] I have personally reviewed the images and the above interpretation and agree with the findings. Jabari Walsh MD IMG CT ORDERABLES documented in this encounter Visit Diagnoses Not on filedocumented in this encounter
--- OUTSIDE RECORDS SUMMARY | 2024-03-07 15:09 | XMS_ITS | Encounter Summary ---
Author Organization [facility] Address [address] [place] [address] Care Team Providers Care Motorcycle Police Officer Name Role Phone Unavailable Primary Care Provider Unavailabl e Encounter Details Date Type Department Care Team (Late st Contact Info) Description 10/10/1999 Results Only [facility] - [facility] conversion [address] [place] [address] Cristobal Morales MD Social History Tobacco Use [...] Priority Date/Time Associated Diagnosis Comments CYTOPATHOLOGY Routine 10/10/1999 13:59 EDT documented in this encounter Results * CYTOPATHOLOGY (10/10/1999 13:59 EDT) Pathology Report: CYTOPATHOLOGY REPORT Reports generated via electronic interface contain original data; however they are lacking the format of the original report. Caution should be taken when reading/interpreti ng unformatted reports. Name: ? ZENY HENRIQUEZ ? Accession #: ? [id number] : ? 1980 (Age: 19) ??F ?Collect Date: ? 10/10/1999 Location: ?Receive Date: ? 10/10/1999 Provider: ?CRISTOBAL MORALES MD Copy to: ?CRISTOBAL MORALES MD ? Specimen/Source: ?Lead Athlete ThinPrep Last Menstrual Period: ? GYNECOLOGIC ??CYTOPATHOLOGY ??REPORT Name: HENRIQUEZ,ZENY ? [facility] : 1980 ?? 19Y F ?Client ID: ?? SS#: ? Clinician: Meli MORALES MD Location: [facility] ??Copy to: ?? Specimen: ?Lead Athlete ThinPrep ? Source: Cervix/Endocervix ?Collected: 10/08/99 ? Received: 10/10/1999 ?LMP: 10/01/99 ? Hormone Therapy: Yes ? : No ? Radiation Therapy: No ?? Post : No ?Chemotherapy: No ?IUD: No ? Prev Abnormal Pap: Yes ?? Clinical Hx: Pap LGSIL ?(Blank desouza indicate information not provided on requisition) SPECIMEN ADEQUACY: ? Satisfactory For Evaluation ?? GENERAL CATEGORIZATION: ? EPITHELIAL CELL ABNORMALITY ?? DESCRIPTIVE DIAGNOSIS: ? Atypical Squamous Cells Of Undetermined Significance (ASCUS), ? Cannot Rule Out Squamous Intraepithelial Lesion (ÓSCAR) ?? RECOMMENDATION: ? Recommend Clinical Correlation Or Further Evaluation, As ? Clinically Indicated ? Reviewed And Electronically Signed By: ? Lourdes Cazares M.D. ? Report Date: ?? 10/22/1999 [employer] Archived Tests - Final Diagnosis Text Field: Clinical History : ; Pap LGSIL ? Document reviewed and electronically signed by: ? Conversion ? Report Date: ??10/22/1999 00:00 End of Report ABIDA CLEMENTE 10/10/1999 13:5 9 EDT 10/10/1999 14:00 EDT Cristobal Morales MD PATHOLOGY ORDERABLES Performing Organization Address City/State/[facility] Co de Phone Number ABIDA CLEMENTE [address] [place] [address] documented in this encounter Visit Diagnoses Not on filedocumented in this encounter
[2024-03-09 14:09] LABS: ANA Interpretation Negative (Negative)
[2024-03-09 14:44] LABS: Ro60 Ab, IgG <7.0 CU (<20.0); SS-A/Ro, IgG <2.3 CU (<20.0); SS-B (La) Ab, IgG <3.3 CU (<20.0)
== END 2024-03-07 15:06 | disposition home or self-care (01) ==
LOC: NCHCN 15:05
PROVIDERS: PCP Nurse Practitioner Family; Visit Provider Internal Medicine
DX: R68.2 Dry mouth, unspecified (principal)
CPT/HCPCS: 86038; 86235

== ENCOUNTER 2024-05-11 15:16 | Outpatient (REF) | payer MEDICAID, SELFPAY ==
--- OUTSIDE RECORDS SUMMARY | 2024-05-11 15:19 | XMS_ITS | Encounter Summary ---
Author Organization [facility] Address [address] [place] [address] Care Team Providers Care Towboat Captain Name Role Phone Shadia Garcia APRN Primary Care Provider [phone] Reason for Visit * Reason Comments New Patient Visit Globus Hystericus * Referral (Routine) - Receiving Office to Obtain Authorization Specialty Diagnoses / Procedures Referred By Contact Referred To Contact Gastroenterology and Hepatology Diagnoses Globus hystericus Shadia Garcia APRN [address] [place] [address] Phone: tel:[phone] fax:[phone] [facility] Gastroenterology [address] [address] Phone: tel: fax: Referral ID Status Reason Start Date Expiration Date Visits Requested Visits Authorized [id number] Receiving Office to Obtain Authorization 1 1 Encounter Details Date Type Department Care Team (Late st Contact Info) Description 05/07/2021 14:20 EST Office Visit [facility] Gastroenterology [address] [id number] Kenny Kelly MD [address] [place] [address], [facility] [address] [place] [address] Dyspepsia (Primary Dx) Social History Tobacco Use Types Packs/Day Years Used Date Smoking Tobacco: Former Cigarettes Q uit: 04/05/2000 Smokeless Tobacco: Never Alcohol Use Standard Drinks/Week Comments No 0 (1 standard drink = 0.6 oz pur e alcohol) Interpersonal Safety Answer Date Record ed Physically Hurt Never 01/22/2020 Verbally Threaten Not on file 01/22/2020 Comments No Sex and Gender Information Value Date Recorded Sex Assigned at Not on file Legal Sex Female 18:17 EST Gender Identity Female 07/31/2021 7:58 EST Sexual [...] EST documented in this encounter Functional Status * Because of a physical, mental, or emotional condition, does this person have difficulty doing errands alone such as visiting a doctor's office or shopping? Answer Date of Assessment Author No 03/07/2015 10:58 EDT documented as of this encounter Mental Status * Because of a physical, mental, or emotional condition, does this person have serious difficulty concentrating, remembering, or making decisions? Answer Entry Date Author No 03/07/2015 10:58 EDT documented in this encounter Progress Notes * Kenny Kelly [...] documented in this encounter Plan of Treatment Upcoming Encounters Date Type Department Care Team (Late st Contact Info) Description 06/29/2024 14:15 EST Office Visit [facility] Rheumatology [address] [place] [address] Nyasia Warner MD [address] [facility] [address] [place] [address] documented as of this encounter Visit Diagnoses Diagnosis Dyspepsia- Primary Dyspepsia and other specified disorders of function of stomach documented in this encounter Historical Medications * This list may reflect changes made after this encounter. famotidine (PEPCID) 20 mg tablet Take 1 Tablet by mouth 2 times daily. 04/23/2021 pantoprazole (PROTONIX) 40 mg tablet Take 40 mg by mouth daily. 04/30/2021 added in this encounter Care Teams Towboat Captain Relationship Specialty Start Date End Date Shadia Garcia APRN [address] [place] [phone] PCP - General 09/09/18 documented as of this encounter
--- OUTSIDE RECORDS SUMMARY | 2024-05-11 15:19 | XMS_ITS | Encounter Summary ---
Author Organization [facility] Address [address] [place] [address] Care Team Providers Care Propellant Charge Zone Assembler Name Role Phone Shadia Garcia DAPHNIE Primary Care Provider [phone] Reason for Visit * Reason Comments New Patient Visit Referred for atopic dermatitis x1 month Encounter Details Date Type Department Care Team (Late st Contact Info) Description 09/09/2018 10:30 EDT Office Visit [facility] Dermatology 3rd Floor [address] [id number] Diaz Linares MD [address] [facility], [address] [place] [address] Dermatitis (Primary Dx) Social History Tobacco Use Types Packs/Day Years Used Date Smoking Tobacco: Former Cigarettes Q uit: 04/05/2000 Smokeless Tobacco: Never Alcohol Use Standard Drinks/Week Comments No 0 (1 standard drink = 0.6 oz pur e alcohol) Comments No Sex and Gender Information Value Date Recorded Sex Assigned at Not on file Legal Sex Female 18:17 EST Gender Identity Female 07/31/2021 7:58 EST Sexual Orientation Not on file documented as of this encounter Functional Status * Because of [...] 03/07/2015 10:58 EDT documented in this encounter Ordered Prescriptions Prescription Sig Dispense Quantity Refills Last Filled Start Date End Date triamcinolone (KENALOG) 0.1 % ointment Apply topically [...] 2 kids. No rashes/itching. Seen [facility] 2011, dx w/ folliculitis vulva/mons pubis. has a [...] Info) Description 06/29/2024 14:15 EST Office Visit [facility] Rheumatology [address] [place], [place] [address] Nyasia Warner MD [address] [facility] [address] [place] [phone] documented as of this encounter Visit Diagnoses Diagnosis Dermatitis- Primary Contact dermatitis and other eczema, due to unspecified cause documented in this encounter Historical Medications * This list may reflect changes made after this encounter. ascorbate calcium (VITAMIN C ORAL) Take by mouth as needed. added in this encounter Care Teams Propellant Charge Zone Assembler Relationship Specialty Start Date End Date Shadia Garcia APRN [address] [place] [address] PCP - General 09/09/18 documented as of this encounter
--- OUTSIDE RECORDS SUMMARY | 2024-05-11 15:19 | XMS_ITS | Encounter Summary ---
Author Organization [facility] Address [address] [place] [address] Care Team Providers Care Boat Buffer Plastic Name Role Phone Shadia Garcia DAPHNIE Primary Care Provider [phone] Encounter Details Date Type Department Care Team (Late st Contact Info) Description 05/07/2021 Orders Only [facility] Gastroenterology - [address] [address] Ash Villagomez MD PhD [address] [place] [address], [address] [place] [address] Encounter for preprocedure screening laboratory [...] documented in this encounter Progress Notes * Elvia Yeboah RN - 05/07/2021 1441 EST Covid test ordered pre-procedure for Esophageal PH probe cheduled on 07/31/20 . documented in this encounter Plan of Treatment Upcoming Encounters Date Type Department Care Team (Late st Contact Info) Description 06/29/2024 14:15 EST Office Visit [facility] Rheumatology [address] [place] [address] Nyasia Warner MD [address] [facility] [address] [place] [address] documented as of this encounter Visit Diagnoses Diagnosis Encounter for preprocedure screening laboratory testing for COVID-19- Primary documented in this encounter Care Teams Boat Buffer Plastic Relationship Specialty Start Date End Date Shadia Garcia APRN [address] [place] [phone] PCP - General 09/09/18 documented as of this encounter
--- OUTSIDE RECORDS SUMMARY | 2024-05-11 15:19 | XMS_ITS | Encounter Summary ---
Author Organization Health system Address [address] [place] [address] Care Team Providers Care Golf Course Mechanic Name Role Phone Ricardo Candelario MD Primary Care Provider [phone] Encounter Details Date Type Department Care Team (Late st Contact Info) Description 09/12/2016 Results Only [facility] [phone] Christie Webster, DAPHNIE [address] [place], [place] [address] Social History Tobacco Use Types Packs/Day Years [...] 03/07/2015 10:58 EDT documented in this encounter Plan of Treatment Upcoming Encounters Date Type Department Care Team (Late st Contact Info) Description 06/29/2024 14:15 EST Office Visit [facility] Rheumatology [address] [place] [address] Nyasia Warner MD [address] [place] [address] [address] documented as of this encounter Procedures Procedure Name Priority Date/Time Associated Diagnosis Comments PAP TEST- RESULT ONLY Routine 09/12/2016 0:00 EDT documented in this encounter Results * PAP TEST- RESULT ONLY (09/12/2016 0:00 EDT) Pathology Report: CYTOPATHOLOGY REPORT Reports generated via electronic interface contain original data; however they are lacking the format of the original report. Caution should be taken when reading/interpreti ng unformatted reports. Name: ? ZENY CHOW Gracie ? Accession #: ? [id number] ? : ? 1980 (Age: 36) ??F [...] Document reviewed and electronically signed by: ? Betzaida Boswell, SCT(ASCP) ? Report ??Date: 09/17/2016 09:23 HPV with Pap Test ? Date Ordered: ? 09/17/2016 ? Status: ?? Signed Out ?Date Complete: ? 09/18/2016 ? By: ??System Interface ? Date Reported: ? 09/18/2016 ? Interpretation RESULT: Negative for HPV. No E6 or E7 mRNA is detected from HPV types 16,18,31,33,35, 39,45,51,52,56,58, 59,66, and 68 by aerial photograph interpreter mediated amplification. Comments Document reviewed and electronically signed by: ? System Interface ? Report date: 09/18/2016 By the signature above, the attending physician certifies that he/she has personally conducted a gross and/or microscopic examination of the described specimens and rendered or confirmed the above diagnosis. End of Report [facility] 09/12/2016 09/15/2016 Christie Webster APRN PATHOLOGY ORDERABLES Final Result Performing Organization Address City/State/[facility] Co de Phone Number [facility] [address] [place] [address] documented in this encounter Visit Diagnoses Not on filedocumented in this encounter Care Teams Golf Course Mechanic Relationship Specialty Start Date End Date Ricardo Candelario MD [address] [place] [address] [address] [place] [address] PCP - General 02/27/11 09/08/18 documented as of this encounter
--- OUTSIDE RECORDS SUMMARY | 2024-05-11 15:19 | XMS_ITS | Encounter Summary ---
Author Organization [facility] Address [address] [place] [address] Care Team Providers Care Line Fisher Name Role Phone Shadia Garcia DAPHNIE Primary Care Provider [phone] Reason for Visit * Reason Onset Date Comments Emesis 07/31/2021 Patient had a PH Probe placed this am and has been vomiting since, tried crackers but couldn't get them down. Encounter Details Date Type Department Care Team (Late st Contact Info) Description 07/31/2021 Telephone [facility] Gastroenterology - [facility] [address] [place], [place] [phone] Ash Villagomez MD PhD [address] [facility], [address] [place] [address] Emesis (Patient had a PH [...] 03/07/2015 10:58 EDT documented in this encounter Miscellaneous Notes * [...] Info) Description 06/29/2024 14:15 EST Office Visit [facility] Rheumatology [address] [place] [address] Nyasia Warner MD [address] [facility] [address] [place] [address] documented as of this encounter Visit Diagnoses Not on filedocumented in this encounter Care Teams Line Fisher Relationship Specialty Start Date End Date Shadia Garcia APRN [address] [place] [address] PCP - General 09/09/18 documented as of this encounter
--- OUTSIDE RECORDS SUMMARY | 2024-05-11 15:19 | XMS_ITS | Encounter Summary ---
Author Organization [facility] Address [address] [place] [address] Care Team Providers Care Roller Name Role Phone Shadia Garcia Sincere ELLER Primary Care Provider [phone] Reason for Visit * Reason Comments Follow-up PH probe Encounter Details Date Type Department Care Team (Late st Contact Info) Description 09/17/2021 14:20 EDT Office Visit [facility] Gastroenterology - [address] [address] Kenny Kelly MD [address] [place] [address], [address] [place] [address] Dyspepsia (Primary Dx) Social History [...] EDT documented in this encounter Functional Status * [...] Info) Description 06/29/2024 14:15 EST Office Visit [facility] Rheumatology [address] [place], [place] [address] Nyasia Warner MD [address] [facility] [address] [place] [address] documented as of this encounter Visit Diagnoses Diagnosis Dyspepsia- Primary Dyspepsia and other specified disorders of function of stomach documented in this encounter Historical Medications * This list may reflect changes made after this encounter. MULTIVITAMIN ORAL Take by mouth. added in this encounter Care Teams Roller Relationship Specialty Start Date End Date Shadia Garcia APRN [address] [place] [phone] PCP - General 09/09/18 documented as of this encounter
--- OUTSIDE RECORDS SUMMARY | 2024-05-11 15:19 | XMS_ITS | Clinical Summary ---
Author Organization [facility] Address [address] [place] [address] Care Team Providers Care Silk Finisher Name Role Phone Jose Shadia Sincere ELLER Primary Care Provider [phone] Allergies Active Allergy Reactions Criticality Noted Date Comments Bovine Complex Swelling of throat 12/01/2014 Medications fluticasone (FLONASE) 50 mcg/actuation nasal spray Instill 50 mcg into both nostrils daily Active KETOTIFEN FUMARATE (ALLERGY EYE, KETOTIFEN, OPHTHALMIC) Apply 1 Drop to eye Active omeprazole (PRILOSEC) 20 mg capsule Take 1 Cap by mouth daily 90 Cap 3 5 Active Additional Information Patient not taking.Reported on 09/09/2018 ascorbate calcium (VITAMIN C ORAL) Take by mouth as needed. Active triamcinolone (KENALOG) 0.1 % ointment Apply topically to affected area 2 times daily. Do not apply to face, armpit or groin. 454 g 3 9 Active Additional Information Patient not taking.Reported on 11/17/2018 pantoprazole (PROTONIX) 40 mg tablet Take 40 mg by mouth daily. 1 Active famotidine (PEPCID) 20 mg tablet Take 1 Tablet by mouth 2 times daily. 1 Active MULTIVITAMIN ORAL Take by mouth. Activ e amitriptyline (ELAVIL) 10 mg tablet Take 1 Tablet by mouth daily. Active amitriptyline (ELAVIL) 25 mg tablet Take 1 Tablet by mouth daily. Active diazePAM (VALIUM) 5 mg tablet Take 1 Tablet by mouth as needed for Anxiety. Take one tablet by mouth before bed the night before dental visit, then one tablet by mouth the hour before dental visit. Active ibuprofen (MOTRIN) 200 mg tablet Take 1 Tablet by mouth every 4 hours. Patient is taking 3-4 tablets every 4 hours for pain Active Sodium Fluoride (SODIUM FLUORIDE 5000 PLUS) 1.1 % cream Place onto teeth. Use as directed. Active Cholecalciferol , Vitamin D3, (VITAMIN D3) 50 mcg capsule Take 1 Capsule by mouth daily. Active diclofenac sodium (VOLTAREN ARTHRITIS PAIN) gel Apply topically 4 times daily. Apply small amount to the skin 4x a day as needed for pain. Do not exceed 4g 4x a day. Active Active Problems Patient Care Coordination No te Formatting of this note migh t be different from the original. 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 1 Encounters Date Type Department Care Team Description 04/20/2024 Abstract [facility] [place] [facility] [place] [address] [place] [address] Nyasia Warner MD 03/08/2024 Lab Requisition [facility] Pathology & Laboratory Medicine - [address] [address] Outr Resulting Lab, Provider from Last 3 Months Immunizations Name Administration Dates Next Due Covid-19 mRNA Vaccine (MODER NA COVID-19) PF 0.5 ml IM (12 yrs+) 06/04/2021,08/31/2020,08/03/2020 Covid-19 mRNA-LNP Va ccine (MODERNA COVID-19) PF 0.5 mL IM (12 yrs+) 04/13/2023,04/24/2022 Influenza Vaccine Quad PF 0. 5 ml IM (6 mos+) 02/26/2023,04/24/2022,04/20/2020 Td 12/12/2019 Tdap Vaccine =>7YO IM 10/26/2009 Surgical History Surgery Date Site/Laterality Comments ABDOMEN SURGERY SECTION 06/22/2010 - 06/21/2011 SECTION 06/22/2008 - 06/21/2009 Medical History Medical History Date Comments Varicella GERD (gastroesophageal reflux disease) Family History Medical History Relation Comments Depression Brother ADHD Daughter 1 Heart Attack Maternal Grandfather Heart Disease Maternal Grandmother *Other(comment) Mother vertigo, CKD, h/ o etoh use, ovaries removed ?ovarian ca Cirrhosis Mother Hypothyroidism Mother *Other(comment) Paternal Grandfather after falling off ladder Lung Disease Paternal Grandmother Celiac Disease Sister 1 Relation Status Comments Brother Alive Daughter 1 Alive Daughter 2 Alive Father Alive Maternal Grandfather Maternal Grandmother Mother Paternal Grandfather Paternal Grandmother Sister 1 Alive Sister 2 Alive Sister 3 Alive Sister 4 Alive Social History Tobacco Use Types Packs/Day Years Used Date Smoking Tobacco: Former Cigarettes Q uit: 04/05/2000 Smokeless Tobacco: Never Tobacco Cessation:Counseling Given: Not Answered Alcohol Use Standard Drinks/Week Comments No 0 [...] 39w 0d F CS-LT ranv Living Delivery Location:[facility] [place] Last Filed Vital Signs Vital Sign Reading [...] 25.48 09/17/2021 1405 EDT Plan of Treatment Upcoming Encounters Date Type Department Care Team (Late st Contact Info) Description 06/29/2024 14:15 EST Office Visit [facility] Rheumatology [address] [place] [address] Nyasia Warner MD [address] [facility] [address] [place] [address] Health Maintenance Due Date Last Done Comments Hepatitis B Vaccine (1 of 3 - 19+ 3-dose series) 1998 COVID-19 Vaccine (2023-2 5 season) 2024 04/13/2023, 04/24/2022, 06/04/2021, Additional history exists Hepatitis C Screen Completed 10/30/2020 Procedures Procedure Name Priority Date/Time Associated Diagnosis Comments SSA/SSB PANEL Routine 03/07/2024 10:40 EDT ANTI NUCLEAR AB (ORTIZ), IFA Routine 03/07/2024 10:40 EDT HEPATITIS C AB W REFLEX TO HCV RNA BY PCR Routine 10/30/2020 10:35 EDT from Last 3 Months or Most Recently Relevant to Health Maintenance Results * SSA/SSB PANEL (03/07/2024 10:40 EDT) Ro52 Anitbody, IgG <2.3 <20.0 CU 2023 14:40 EDT [facility] Comment:Results were obtaine d with the [employer] OnDemandA Flash Ro52 chemiluminescent immunoassay. Values obtained with different manufacturers' assay methods must not be used interchangeably. Ro60 Antibody, IgG <7.0 <20.0 CU 2023 14:40 EDT [facility] Comment:Results were obtaine d with the [employer] OnDemandA Flash Ro60 chemiluminescent immunoassay. Values obtained with different manufacturers' assay methods must not be used interchangeably. SSB Antibody, IgG <3.3 <20.0 CU 024 14:40 EDT [facility] Comment:Results were obtaine d with the [employer] OnDemandA Flash SS-B chemiluminescent immunoassay. Values obtained with different manufacturers' assay methods must not be used interchangeably. Blood VENOUS BLOOD / Unknown 03/07/2024 10:40 EDT 03/08/2024 20:15 EDT us Provider Outr Resulting Lab IMMUNOLOGY AND SEROL OGY ORDERABLES Final Result Performing Organization Address [facility] Co de Phone Number [facility] [address] [place] [id number] * ANTI NUCLEAR AB (ORTIZ), IFA (03/07/2024 10:40 EDT) ORTIZ Interpretation Negative Negative 2023 14:04 EDT [facility] Comment:No titer performed, ORTIZ Screen is negative. Blood VENOUS BLOOD / Unknown 03/07/2024 10:40 EDT 03/08/2024 20:15 EDT Narrative [facility] - 03/09/2024 14:04 EDT Results were obtained with the [employer] NOVA Lite HEp-2 ORTIZ Kit by indirect immunofluorescence. us Provider Outr Resulting Lab IMMUNOLOGY AND SEROL OGY ORDERABLES Final Result Performing Organization Address [facility] Co de Phone Number [facility] [address] [place] [address] * HEPATITIS C AB W REFLEX TO HCV RNA BY PCR (10/30/2020 10:35 EDT) Hep C Antibody Negative Negative 10/31/2020 11:13 EDT [facility] Blood VENOUS BLOOD / Unknown 10/30/2020 10:35 EDT 10/30/2020 21:31 EDT us Provider Outr Resulting Lab CHEMISTRY & BLOOD GA S ORDERABLES Final Result [facility] [address] [place] [address] from Last 3 Months or Most Recently Relevant to Health Maintenance Insurance [place] Advance Directives For more information, please contact: [phone] Documents on File Type Date Recorded Patient Bun Panner Expl anation Advance Directive 07/31/2021 8:02 Advance D [facility] Health Care-Signed 2020-04-08 Care Teams Silk Finisher Relationship Specialty Start Date End Date Shadia Garcia APRN [address] [place] [address] PCP - General 09/09/18
--- OUTSIDE RECORDS SUMMARY | 2024-05-11 15:19 | XMS_ITS | Encounter Summary ---
Author Organization [facility] Address [address] [place] [address] Care Team Providers Care Printing Roller Polisher Name Role Phone Shadia Garcia DAPHNIE Primary Care Provider [phone] Reason for Visit * Reason Onset Date Comments Results 08/07/2021 Encounter Details Date Type Department Care Team (Late st Contact Info) Description 08/07/2021 Telephone [facility] Gastroenterology - [address] [address] Kenny Kelly MD [address] [place] [address], [address] [place] [address] Results Social History Tobacco Use [...] Info) Description 06/29/2024 14:15 EST Office Visit [facility] Rheumatology [address] [place] [address] Nyasia Warner MD [address] [place] [address] [place] [address] documented as of this encounter Visit Diagnoses Not on filedocumented in this encounter Care Teams Printing Roller Polisher Relationship Specialty Start Date End Date Shadia Garcia APRN [address] [place] [phone] PCP - General 09/09/18 documented as of this encounter
--- OUTSIDE RECORDS SUMMARY | 2024-05-11 15:19 | XMS_ITS | Encounter Summary ---
Author Organization [facility] Address [address] [place] [address] Care Team Providers Care Housekeeper Child Care Name Role Phone Jose Shadia Sincere ELLER Primary Care Provider [phone] Reason for Visit * Test (Routine) - Closed Specialty Diagnoses / Procedures Referred By Contact Referred To Contact Gastroenterology and Hepatology Diagnoses Dyspepsia Procedures ESOPHAGEAL PH PROBE AR GERD TST W/ MUCOS PH ELECTROD Kenny Kelly MD Phone: tel: fax: Ash Villagomez MD PhD Phone: tel:[phone] fax:[phone] Referral ID Status Reason Start Date Expiration Date Visits Re quested Visits Authorized [id number] Closed 06/21/2022 1 1 Encounter Details Date Type Department Care Team (Late st Contact Info) Description 07/31/2021 7:59 EST - 07/31/2021 23:59 EST Hospital Encounter [facility] [address] [place], [place] [id number] Ash Villagomez MD PhD [address] [facility], [facility] [place] [address] [place] [address] Discharge Disposition: Home or Self [...] 03/07/2015 10:58 EDT documented in this encounter Medications at Time of Discharge ascorbate calcium (VITAMIN C ORAL) Take by mouth as needed. famotidine (PEPCID) 20 mg tablet Take 1 Tablet by mouth 2 times daily. 04/23/2021 fluticasone (FLONASE) 50 mcg/actuation nasal [...] Code Departure Means Destination Home or Self [place] documented in this encounter H&P Notes * Ash Villagomez MD - 07/31/2021 0840 EST Endoscopy Sedation for Procedure History & Physical Date: 07/31/2021 Time: 9:04 Location: [facility] Planned Procedure: Esophageal pH Probe Chief Complaint/Indications [...] @ 29cm at 0919. 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 #[id number]. documented in this encounter Plan of Treatment Upcoming Encounters Date Type Department Care Team (Late st Contact Info) Description 06/29/2024 14:15 EST Office Visit [facility] Rheumatology [address] [place] [address] Nyasia Warner MD [address] [facility] [address] [place] [address] documented as of this encounter Procedures Procedure Name Priority Date/Time Associated Diagnosis Comments ENDOSCOPY REPORTS - SCANNED 08/08/2021 7:44 EST UPPER ENDOSCOPY PROCEDURE Routine 07/31/2021 9:26 EST documented in this encounter Results * ENDOSCOPY REPORTS - SCANNED (08/08/2021 7:44 EST) 08/08/2021 7:44 EST us Scan 2 Roving Sizer PROCEDURE/MINOR SURGICAL OR DERABLES Final Result * UPPER ENDOSCOPY PROCEDURE (07/31/2021 9:26 EST) [...] 07/31/2021 09:26:54 AM By Ash Villagomez MD us Ash Villagomez MD PhD GI PROCEDURE ORDERABLES Final Result documented in this encounter Visit Diagnoses Not on filedocumented in this encounter Administered Medications Inactive Administered Medications - up to 3 most recent administrations Medication Order MAR Action Action Date Dose Rate Site lactated ringers (LR) infusion 30 mL/hr, intravenous, PRN, Starting on Thu07/31/21 at 0819, Until 08/03/21 at 0202, Routine, Preprocedure New Bag 07/31/2021 [...] 07/31 documented in this encounter Care Teams Housekeeper Child Care Relationship Specialty Start Date End Date Shadia Garcia APRN [address] [place] [phone] PCP - General 09/09/18 documented as of this encounter
--- OUTSIDE RECORDS SUMMARY | 2024-05-11 15:19 | XMS_ITS | Encounter Summary ---
Author Organization [facility] Address [address] [place] [address] Care Team Providers Care Plumber Name Role Phone Shadia Garcia APRN Primary Care Provider Encounter Details Date Type Department Care Team (Late st Contact Info) Description 02/28/2021 Lab Requisition [facility] Pathology & Laboratory Medicine - [address] [address] Shadia Garcia APRN [address] [place] [phone] Encounter for general adult medical examination [...] Info) Description 06/29/2024 14:15 EST Office Visit [facility] Rheumatology [address] [place], [place] [address] Nyasia Warner MD 130 [facility] [address] [place] [address] documented as of this encounter Procedures [...] types, PCR Negative Negative 03/12/2021 15:17 EDT [facility] Comment:No E6 or E7 mRNA is detected from HPV types 16,18,31,33,35,39,45,51,52,56,58,59,66, and 68 by wood casket assembler mediated amplification. Papanicolaou smear specimen (specimen) CERVIX UTERI STRUCTURE / Unknown 02/26/2021 1:45 EDT 03/11/2021 15:52 EDT us Shadia Garcia APRN MICROBIOLOGY - GENERAL ORDER JOHN Final Result [facility] [address] [place] [address] * PAP TEST (02/26/2021 1:45 EDT) Specimens A. Cervix and/or Endocervix , ThinPrep Imaging System with Manual Evaluation 03/12/2021 15:17 [facility] Specimen Adequacy Satisfactory for Evaluation - transformation zone component present 03/12/2021 15:17 [facility] General Categorization Negative for intraepithelial lesion or malignancy 03/12/2021 15:17 [facility] Descriptive Diagnosis Shift in nevaeh present suggestive of bacterial vaginosis. 03/12/2021 15:17 [facility] Attestation . 03/12/2021 15:17 [facility] at 1517 Clinical History See below 03/12/20 15:17 [facility] HPV The result for the Human Papillomavirus (HPV) Detection-High Risk Types is Negative. No E6 or E7 mRNA is detected from HPV types 16,18,31,33,35,39 ,45,51,52,56,58,5 9,66, and 68 by wood casket assembler mediated amplification.Kyleigh ting was performed on specimen [id number] and was resulted on 03/12/2021 1511 EDT by JENNIFER, LAB INSTRUMENT RESULTS IN 03/12/2021 15:17 [facility] Performing Lab [facility] 03/12/2021 15:17 [facility] Scanned Images 03/12/2021 15:17 [facility] Papanicolaou smear specimen (specimen) CERVIX UTERI STRUCTURE / Unknown 02/26/2021 1:45 EDT 02/28/2021 14:46 EDT us Shadia Garcia APRN PATHOLOGY ORDERABLES Final R esult [facility] [address] [place] [address] documented in this encounter Visit Diagnoses Diagnosis Encounter for general adult medical examination without abnormal findings Unspecified general medical examination Encounter for screening for malignant neoplasm of cervix Screening for malignant neoplasm of the cervix documented in this encounter Care Teams Plumber Relationship Specialty Start Date End Date Shadia Garcia APRN [address] [place] [address] PCP - General 09/09/18 documented as of this encounter
--- OUTSIDE RECORDS SUMMARY | 2024-05-11 15:19 | XMS_ITS | Encounter Summary ---
Author Organization [facility] Address [address] [place] [address] Care Team Providers Care Any Commodity Sales Deliverer Name Role Phone Shadia Garcia DAPHNIE Primary Care Provider [phone] Reason for Visit * Reason Comments Follow-up rash Encounter Details Date Type Department Care Team (Late st Contact Info) Description 11/17/2018 15:30 EDT Office Visit [facility] Dermatology [address] [address] Diaz Linares MD [address] [place] [address], [address] [place] [address] Dermatitis (Primary Dx) Social History [...] 03/07/2015 10:58 EDT documented in this encounter Patient Instructions * Patient Instructions* [...] Info) Description 06/29/2024 14:15 EST Office Visit [facility] Rheumatology [address] [place] [address] Nyasia Warner MD 130 [facility] [address] [place] [address] documented as of this encounter Visit Diagnoses Diagnosis Dermatitis- Primary Contact dermatitis and other eczema, due to unspecified cause documented in this encounter Care Teams Any Commodity Sales Deliverer Relationship Specialty Start Date End Date Shadia Garcia APRN [address] [place] [address] PCP - General 09/09/18 documented as of this encounter
--- OUTSIDE RECORDS SUMMARY | 2024-05-11 15:19 | XMS_ITS | Encounter Summary ---
Author Organization [facility] Address [address] [place] [address] Care Team Providers Care Primer Press Operator Name Role Phone Shadia Garcia Sincere ELLER Primary Care Provider [phone] Encounter Details Date Type Department Care Team (Late st Contact Info) Description 04/20/2024 Abstract [facility] [place] [address] [place] [address] Nyasia Warner MD 130 [facility] [address] [place] [address] Social History Tobacco Use Types Packs/Day Years [...] documented in this encounter Progress Notes * Svetlana Briscoe - 04/20/2024 1032 EDT Chart abstracted. documented in this encounter Plan of Treatment Upcoming Encounters Date Type Department Care Team (Late st Contact Info) Description 06/29/2024 14:15 EST Office Visit [facility] Rheumatology [address] [place], [place] [address] Nyasia Warner MD 130 [facility] [address] [place] [address] documented as of this encounter Visit Diagnoses Not on filedocumented in this encounter Historical Medications * This list may reflect changes made after this encounter. diclofenac sodium (VOLTAREN ARTHRITIS PAIN) gel Apply topically 4 times daily. Apply small amount to the skin 4x a day as needed for pain. Do not exceed 4g 4x a day. Cholecalciferol, Vitamin D3, (VITAMIN D3) 50 mcg capsule Take 1 Capsule by mouth daily. Sodium Fluoride (SODIUM FLUORIDE 5000 PLUS) 1.1 % cream Place onto teeth. Use as directed. ibuprofen (MOTRIN) 200 mg tablet Take 1 Tablet by mouth every 4 hours. Patient is taking 3-4 tablets every 4 hours for pain diazePAM (VALIUM) 5 mg tablet Take 1 Tablet by mouth as needed for Anxiety. Take one tablet by mouth before bed the night before dental visit, then one tablet by mouth the hour before dental visit. amitriptyline (ELAVIL) 25 mg tablet Take 1 Tablet by mouth daily. amitriptyline (ELAVIL) 10 mg tablet Take 1 Tablet by mouth daily. added in this encounter Care Teams Primer Press Operator Relationship Specialty Start Date End Date Shadia Garcia APRN [address] [place] [phone] PCP - General 09/09/18 documented as of this encounter
--- OUTSIDE RECORDS SUMMARY | 2024-05-11 15:19 | XMS_ITS | Encounter Summary ---
Author Organization [facility] Address [address] [place] [address] Care Team Providers Care Pulp Piler Name Role Phone Ricardo Candelario MD Primary Care Provider [phone] Reason for Visit * Reason Onset Date Comments Results 05/21/2015 MANO Encounter Details Date Type Department Care Team (Late st Contact Info) Description 05/21/2015 Telephone [facility] Gastroenterology - [address] [address] Ash Villagomez MD PhD [address] [place] [address], [address] [place] [address] Results (MANO) Social History Tobacco [...] Refills Last Filled Start Date End Date omeprazole (PRILOSEC) 20 mg capsule Take 1 [...] Info) Description 06/29/2024 14:15 EST Office Visit [facility] Rheumatology [address] [place], [place] [phone] Nyasia Warner MD 130 [facility] [address] [place] [address] documented as of this encounter Visit Diagnoses Not on filedocumented in this encounter Discontinued Medications Medication Sig Discontinue Reason Start Date End Da te omeprazole (PRILOSEC) 20 mg capsule Take 20 mg by mouth 2 times daily 05/21/2015 documented as of this encounter Care Teams Pulp Piler Relationship Specialty Start Date End Date Ricardo Candelario MD [address] [place] [address] PCP - General 02/27/11 09/08/18 documented as of this encounter
--- OUTSIDE RECORDS SUMMARY | 2024-05-11 15:19 | XMS_ITS | Encounter Summary ---
Author Organization [facility] Address [address] [place] [address] Care Team Providers Care Director Of Radio Services Name Role Phone Shadia Garcia DAPHNIE Primary Care Provider [phone] Encounter Details Date Type Department Care Team [...] Info) Description 06/29/2024 14:15 EST Office Visit [facility] Rheumatology [address] [place] [address] Nyasia Warner MD 130 [facility] [address] [place] [address] documented as of this encounter Visit Diagnoses Not on filedocumented in this encounter Care Teams Director Of Radio Services Relationship Specialty Start Date End Date Shadia Garcia APRN [address] [place] [address] PCP - General 09/09/18 documented as of this encounter
--- OUTSIDE RECORDS SUMMARY | 2024-05-11 15:19 | XMS_ITS | Encounter Summary ---
Author Organization [facility] Address [address] [place] [address] Care Team Providers Care Cooking Show Host Name Role Phone Shadia Garcia DAPHNIE Primary Care Provider [phone] Encounter Details Date Type Department Care Team (Late st Contact Info) Description 10/30/2020 Lab Requisition [facility] Pathology & Laboratory Medicine - [address] [address] Outr Resulting Lab, Provider Social History Tobacco [...] Info) Description 06/29/2024 14:15 EST Office Visit [facility] Rheumatology [address] [place] [address] Nyasia Warner MD [address] [place] [phone] documented as of this encounter Procedures Procedure Name Priority Date/Time Associated Diagnosis Comments HEPATITIS C AB W REFLEX TO HCV RNA BY PCR Routine 10/30/2020 10:35 EDT documented in this encounter Results * HEPATITIS C AB W REFLEX TO HCV RNA BY PCR (10/30/2020 10:35 EDT) Hep C Antibody Negative Negative 10/31/2020 11:13 EDT [facility] Blood VENOUS BLOOD / Unknown 10/30/2020 10:35 EDT 10/30/2020 21:31 EDT us Provider Outr Resulting Lab CHEMISTRY & BLOOD GA S ORDERABLES Final Result [facility] [address] [place] [address] documented in this encounter Visit Diagnoses Not on filedocumented in this encounter Care Teams Cooking Show Host Relationship Specialty Start Date End Date Shadia Garcia APRN [address] [place] [phone] PCP - General 09/09/18 documented as of this encounter
--- OUTSIDE RECORDS SUMMARY | 2024-05-11 15:19 | XMS_ITS | Encounter Summary ---
Author Organization [facility] Address [address] [place] [address] Care Team Providers Care Windows Consultant Name Role Phone Shadia Garcia DAPHNIE Primary Care Provider [phone] Encounter Details Date Type Department Care Team (Late st Contact Info) Description 03/08/[address] [facility] Pathology & Laboratory Medicine - [address] [address] Outr Resulting Lab, Provider Social History Tobacco [...] [facility] Rheumatology [address] [place] [address] Nyasia Warner MD [address] [facility] [address] [place] [phone] documented as of this encounter Procedures Procedure Name Priority Date/Time Associated Diagnosis Comments SSA/SSB PANEL Routine 03/07/2024 10:40 EDT ANTI NUCLEAR AB (ORTIZ), IFA Routine 03/07/2024 10:40 EDT documented in this encounter Results * SSA/SSB PANEL (03/07/2024 10:40 EDT) Ro52 Anitbody, IgG <2.3 <20.0 CU 2023 14:40 EDT [facility] Comment:Results were obtaine d with the CENXA Flash Ro52 chemiluminescent immunoassay. Values obtained with different manufacturers' assay methods must not be used interchangeably. Ro60 Antibody, IgG <7.0 <20.0 CU 2023 14:40 EDT [facility] Comment:Results were obtaine d with the CENXA Flash Ro60 chemiluminescent immunoassay. Values obtained with different manufacturers' assay methods must not be used interchangeably. SSB Antibody, IgG <3.3 <20.0 CU 024 14:40 EDT [facility] Comment:Results were obtaine d with the CENXA Flash SS-B chemiluminescent immunoassay. Values obtained with different manufacturers' assay methods must not be used interchangeably. Blood VENOUS BLOOD / Unknown 03/07/2024 10:40 EDT 03/08/2024 20:15 EDT us Provider Outr Resulting Lab IMMUNOLOGY AND SEROL OGY ORDERABLES Final Result [facility] [address] [place] [address] * ANTI NUCLEAR AB (ORTIZ), IFA (03/07/2024 10:40 EDT) ORTIZ Interpretation Negative Negative 2023 14:04 EDT [facility] Comment:No titer performed, ORTIZ Screen is negative. Blood VENOUS BLOOD / Unknown 03/07/2024 10:40 EDT 03/08/2024 20:15 EDT Narrative [facility] - 03/09/2024 14:04 EDT Results were obtained with the [employer] NOVA Lite HEp-2 ORTIZ Kit by indirect immunofluorescence. us Provider Outr Resulting Lab IMMUNOLOGY AND SEROL OGY ORDERABLES Final Result [facility] [address] [place] [phone] documented in this encounter Visit Diagnoses Not on filedocumented in this encounter Care Teams Windows Consultant Relationship Specialty Start Date End Date Shadia Garcia APRN [address] [place] [phone] PCP - General 09/09/18 documented as of this encounter
--- OUTSIDE RECORDS SUMMARY | 2024-05-11 15:19 | XMS_ITS | Encounter Summary ---
Author Organization [facility] Address [address] [place] [address] Care Team Providers Care Pyrometer Operator Name Role Phone Shadia Garcia DAPHNIE Primary Care Provider [phone] Encounter Details Date Type Department Care Team (Late st Contact Info) Description 10/30/2020 Lab Requisition [facility] Pathology & Laboratory Medicine - [address] [address] Outr Resulting Lab, Provider Social History Tobacco [...] 14:15 EST Office Visit [facility] Rheumatology [address] [place] [address] Nyasia Warner MD 130 [facility] [address] [place] [phone] documented as of this encounter Procedures Procedure Name Priority Date/Time Associated Diagnosis Comments HIV 1/2 ANTIGEN AND ANTIBODY, 4TH GENERATION Routine 10/30/2020 10:35 EDT documented in this encounter Results * HIV 1/2 ANTIGEN AND ANTIBODY, 4TH GENERATION (10/30/2020 10:35 EDT) Pathologist [facility] HIV 1 and 2 Antibody/p24 Antigen, 4th Generation Negative Negative 10/31/2020 10:57 EDT [facility] Comment: If acute HIV-1 infection is suspected in a high risk ??patient, submit plasma specimen for HIV-1 RNA quantitation test. Fourth Generation assay performed on the Siemens Centaur. Blood VENOUS BLOOD / Unknown 10/30/2020 10:35 EDT 10/30/2020 21:30 EDT us Provider Outr Resulting Lab IMMUNOLOGY AND SEROL OGY ORDERABLES Final Result [facility] [address] [place] [address] documented in this encounter Visit Diagnoses Not on filedocumented in this encounter Care Teams Pyrometer Operator Relationship Specialty Start Date End Date Shadia Garcia APRN [address] [place] [address] PCP - General 09/09/18 documented as of this encounter
--- OUTSIDE RECORDS SUMMARY | 2024-05-11 15:19 | XMS_ITS | Encounter Summary ---
Author Organization [facility] Address [address] [place] [address] Care Team Providers Care Analytical Laboratory Technician Name Role Phone Shadia Garcia DAPHNIE Primary Care Provider [phone] Reason for Visit * Reason Onset Date Comments COVID-19 07/23/2021 Encounter Details Date Type Department Care Team (Late st Contact Info) Description 07/23/2021 Telephone [facility] - Genometry [address] [place] [address] Ash Villagomez MD PhD 111 [facility] [address] [place] [address] COVID-19 Social History Tobacco Use [...] they would like covid testing done at [facility]. First Officer faxed the order and asked thatthey schedule the patient for testing on Thu07/27/21 (No testing on Sundays). Pt will call to get appt time. First Officer will also remove patient from the work queue. documented in this encounter Plan of Treatment Upcoming Encounters Date Type Department Care Team (Late st Contact Info) Description 06/29/2024 14:15 EST Office Visit [facility] Rheumatology [address] [place] [phone] Nyasia Warner MD [address] [facility] [address] [place] [address] documented as of this encounter Visit Diagnoses Not on filedocumented in this encounter Care Teams Analytical Laboratory Technician Relationship Specialty Start Date End Date Shadia Garcia APRN [address] [place] [phone] PCP - General 09/09/18 documented as of this encounter
--- OUTSIDE RECORDS SUMMARY | 2024-05-11 15:19 | XMS_ITS | Encounter Summary ---
Author Organization [facility] Address [address] [place] [address] Care Team Providers Care Purchase Order Checker Name Role Phone Shadia Garcia Sincere ELLER Primary Care Provider [phone] Reason for Visit * Reason Onset Date Comments Results 08/07/2021 Encounter Details Date Type Department Care Team (Late st Contact Info) Description 08/07/2021 Telephone [facility] Gastroenterology - [address] [address] Ash Villagomez MD PhD [address] [place] [address], [address] [place] [address] Results Social History Tobacco Use [...] Info) Description 06/29/2024 14:15 EST Office Visit [facility] Rheumatology [address] [place], [place] [address] Nyasia Warner MD 130 [facility] [address] [place] [phone] documented as of this encounter Visit Diagnoses Not on filedocumented in this encounter Care Teams Purchase Order Checker Relationship Specialty Start Date End Date Shadia Garcia APRN [address] [place] [phone] PCP - General 09/09/18 documented as of this encounter
--- OUTSIDE RECORDS SUMMARY | 2024-05-11 15:19 | XMS_ITS | Referral Summary ---
Author Organization [facility] Address [address] [place] [address] Care Team Providers Care Parachute Line Tier Name Role Phone Myla Garciaily Sincere ELLER Primary Care Provider [phone] Encounters Date Type Department Care Team Description 04/20/2024 Abstract [facility] Rheumatology [address] [place] [address] Nyasia Warner MD 03/08/2024 Lab Requisition [facility] Pathology & Laboratory Medicine - [address] [address] Outr Resulting Lab, Provider from Last 3 Months Allergies Active Allergy Reactions Criticality Noted Date [...] 1 Tablet by mouth 2 times daily. Active MULTIVITAMIN ORAL Take by mouth. Activ [...] original. .Verified ACO status via Medicaid trace# [id number] / XR Lima Rosales 07/25/2021 9:38 Problem [...] Td 12/12/2019 Tdap Vaccine =>7YO IM 10/26/2009 Social History Tobacco Use Types Packs/Day Years [...] Index 25.48 09/17/2021 1405 EDT Functional Status * Because of a physical, mental, or emotional condition, does this person have difficulty doing errands alone such as visiting a doctor's office or shopping? Answer Date of Assessment Author No 03/07/2015 10:58 EDT Mental Status * Because of a physical, mental, or emotional condition, does this person have serious difficulty concentrating, remembering, or making decisions? Answer Entry Date Author No 03/07/2015 10:58 EDT Plan of Treatment Upcoming Encounters Date Type Department Care Team (Late st Contact Info) Description 06/29/2024 14:15 EST Office Visit [facility] Rheumatology [address] [place] [address] Nyasia Warner MD 130 [facility] [address] [place] [address] Procedures Procedure Name Priority Date/Time Associated Diagnosis [...] IgG <2.3 <20.0 CU 2023 14:40 EDT [facility] Comment:Results were obtaine d with the BreezeA Flash Ro52 chemiluminescent immunoassay. Values obtained with different manufacturers' assay methods must not be used interchangeably. Ro60 Antibody, IgG <7.0 <20.0 CU 2023 14:40 EDT [facility] Comment:Results were obtaine d with the BreezeA Flash Ro60 chemiluminescent immunoassay. Values obtained with different manufacturers' assay methods must not be used interchangeably. SSB Antibody, IgG <3.3 <20.0 CU 024 14:40 EDT [facility] Comment:Results were obtaine d with the BreezeA Flash SS-B chemiluminescent immunoassay. Values obtained with different manufacturers' assay methods must not be used interchangeably. Blood VENOUS BLOOD / Unknown 03/07/2024 10:40 EDT 03/08/2024 20:15 EDT us Provider Outr Resulting Lab IMMUNOLOGY AND SEROL OGY ORDERABLES Final Result [facility] [address] [place] [address] * ANTI NUCLEAR AB (ORTIZ), IFA (03/07/2024 10:40 EDT) ORTIZ Interpretation Negative Negative 2023 14:04 EDT [facility] Comment:No titer performed, ORTIZ Screen is negative. Blood VENOUS BLOOD / Unknown 03/07/2024 10:40 EDT 03/08/2024 20:15 EDT Narrative [facility] - 03/09/2024 14:04 EDT Results were obtained with the [employer] NOVA Lite HEp-2 ORTIZ Kit by indirect immunofluorescence. us Provider Outr Resulting Lab IMMUNOLOGY AND SEROL OGY ORDERABLES Final Result [facility] [address] [place] [address] * HEPATITIS C AB W REFLEX TO HCV RNA BY PCR (10/30/2020 10:35 EDT) Hep C Antibody Negative Negative 10/31/2020 11:13 EDT [facility] Blood VENOUS BLOOD / Unknown 10/30/2020 10:35 EDT 10/30/2020 21:31 EDT us Provider Outr Resulting Lab CHEMISTRY & BLOOD GA S ORDERABLES Final Result [facility] [address] [place] [address] from Last 3 Months or Most Recently Relevant to [place] [id number] [place] [id number] Advance Directives For more information, please contact: [phone] Documents on File Type Date Recorded Patient Chief Digital Media Officer Expl anation Advance Directive 07/31/2021 8:02 Advance D [facility]-Signed 2020-04-08 Care Teams Parachute Line Tier Relationship Specialty Start Date End Date Shadia Garcia APRN [address] [place] [address] PCP - General 09/09/18
--- OUTSIDE RECORDS SUMMARY | 2024-05-11 15:20 | XMS_ITS | Encounter Summary ---
Author Organization [facility] Address [address] [place] [address] Care Team Providers Care Apron Operator Name Role Phone Unavailable Primary Care Provider Unavailabl e Encounter Details Date Type Department Care Team (Late st Contact Info) Description 11/18/2005 Office Visit [facility] - Maple conversion [address] [place], [place] [address] Jabari Walsh MD [address] [facility], Level [address] [place] [address] Social History Tobacco Use Types Packs/Day Years Used Date Smoking Tobacco: Never Assessed Comments Unknown Sex and Gender Information Value Date Recorded [...] down basement stairs. Pt was seen in [facility] ED, admitted for observation overnight for small [...] No Solis's sign or raccoon eyes. Left cheondoism: mild tenderness. No erythema,swelling, laceration, abrasion or [...] Follow up with Dr Silas Perdomo of [facility] [phone] for L shoulder. Call for appointment for next available appt, within 1 week[address] Follow up with Dr. BARRAGAN in 4 weeks. CALL [phone] FOR APPOINTMENT. Understanding of the discharge instructions [...] Onset- Since last Thursday. Pain level now: 4/10. PAST HX: ( Traumatic head injury last Thursday). SOCIAL HX: Occasional alcohol use. Nonsmoker. Arrived by private vehicle and accompanied by family. Historian: patient and family. --1035 Leora Barrientos R.N. NURSING PROGRESS NOTES Progress Patient gowned. Patient walked with tech (room 30). Call light placed in reach. Side rails up x 1. Bed placed in lowest position. Brakes of bed on. --1039 Venkata Chavis Patient transported to PR by stretcher. --1213 Stella Gaxiola R.N. ( [...] administered. Patient reports current pain (nausea gone). --1387 Lauren Villarreal R.N. IV / I&O Flowsheet [...] (by pt). INTAKE: 1 liters IV Total. --6018 Lauren Villarreal R.N. DISPOSITION / DISCHARGE reports pain level on departure as 3/10. Condition at departure: improved. No learning barriers present. Discharge instructions reviewed with the patient and parent. Reviewed medication; prescription(s) given to the patient. Patient and parent verbalized understanding. Written instructions provided in Yemeni. The patient was discharged home and accompanied by parent. The patient left the Emergency Department ambulatory and via private vehicle. Parent driving. --0321 Orlin Cruz R.N., E.M.T. Elida Gundersen Kitty Hayes, R.N. Elizabeth Dalton R.N. Elma Rickards, R.N. Locked/Released at 11/18/2005 14:09 by Lauren Villarreal R.N. documented in this encounter Plan of Treatment Upcoming Encounters Date Type Department Care Team ([facility] Info) Description 06/29/2024 14:15 EST Office Visit [facility] Rheumatology [address] [place] [address] Nyasia Warner MD 130 [facility] [address] [place] [address] documented as of this encounter Visit Diagnoses Not on filedocumented in this encounter
--- OUTSIDE RECORDS SUMMARY | 2024-05-11 15:20 | XMS_ITS | Encounter Summary ---
Author Organization [facility] Address [address] [place] [address] Care Team Providers Care Shop Blacksmith Name Role Phone Unavailable Primary Care Provider Unavailabl e Encounter Details Date Type Department Care Team (Late st Contact Info) Description 11/15/2005 Office Visit [facility] - Maple conversion [address] [place], [place] [phone] Caridad Tabor MD 111 [facility], Level [address] [place] [address] Social History Tobacco Use Types [...] signed by Caridad Tabor M.D. 11/15/2005 15:51) Addenda ZENY Nicole VisitID: [id number] Date: 11/15/2005 11/15/2005 11:18 CASSIA TAKES REPORT: PT COMING BY CAR FROM [facility], FELL DOWN BASEMENT STAIRS, LEFT ARM PAIN, NO RECALL, SKULL FX, ? SDH ON CT, ? LEFT SHOULDER ROTATOR CUFF TEAR. BP 127/74, HR 100, RR 18, TEMP 98.4, 2 PERCOSET, 500 KEFLEX. signed by Nia Javon - 11/15/2005 11:18) Department - Nursing Summary [...] assumed fall down basement stairs, transferred from [facility] for depressed skull fx, ? SDH). This [...] bedon. --1211 Venkata Haley Patient transported to CT by stretcher with tech. --1322 Lauren Villarreal [...] DISCHARGE Admitted (m6). Transported via stretcher by [employer]. Report was given (rn). --1459 Lauren Villarreal R.N. Departure time: 1545. --1538 Orlin Lemus R.N., E.M.T. Elma Rickards R.N. Andrea Phillips, R.N. Locked/Released at 11/15/2005 23:11 by Mauri Guzman R.N. documented in this encounter Plan of Treatment Upcoming Encounters Date Type Department Care Team (Late st Contact Info) Description 06/29/2024 14:15 EST Office Visit [facility] Rheumatology [address] [place] [address] Nyasia Warner MD 130 [facility] [address] [place] [phone] documented as of this encounter Visit Diagnoses Not on filedocumented in this encounter
--- OUTSIDE RECORDS SUMMARY | 2024-05-11 15:20 | XMS_ITS | Encounter Summary ---
Author Organization [facility] Address [address] [place] [address] Care Team Providers Care Plate Stacker Name Role Phone Unavailable Primary Care Provider Unavailabl e Encounter Details Date Type Department Care Team (Late st Contact Info) Description 01/24/2002 Results Only [facility] [place] conversion [address] [place] [address] Cristobal Morales MD Social History Tobacco Use Types Packs/Day Years Used Date Smoking Tobacco: Never Assessed Comments Unknown Sex and Gender Information Value Date Recorded Sex Assigned at Not on file Legal Sex Female 18:17 EST Gender Identity Female 07/31/2021 7:58 EST Sexual Orientation Not on file documented as of this encounter Plan of Treatment Upcoming Encounters Date Type Department Care Team (Late st Contact Info) Description 06/29/2024 14:15 EST Office Visit [facility] Rheumatology [address] [place], [place] [address] Nyasia Warner MD 130 [facility] [address] [place] [address] documented as of this encounter Procedures Procedure Name Priority Date/Time Associated Diagnosis Comments CYTOPATHOLOGY Routine 01/24/2002 0:00 EDT documented in this encounter Results * CYTOPATHOLOGY (01/24/2002 0:00 EDT) Pathology Report: CYTOPATHOLOGY REPORT Reports generated via electronic interface contain original data; however they are lacking the format of the original report. Caution should be taken when reading/interpreti ng unformatted reports. Name: ? FERNIE HENRIQUEZANDA ? Accession #: ? [id number] : ? 1980 (Age: 21) ??F ?Collect [...] End of Report [facility] 01/24/2002 01/26/2002 us Cristobal Morales MD PATHOLOGY ORDERABLES Final Res ult [facility] [address] [place] [address] documented in this encounter Visit Diagnoses Not on filedocumented in this encounter
--- OUTSIDE RECORDS SUMMARY | 2024-05-11 15:20 | XMS_ITS | Encounter Summary ---
Author Organization [facility] Address [address] [place] [address] Care Team Providers Care Weapons Electrical Engineering Officer Name Role Phone Unavailable Primary Care Provider Unavailabl e Encounter Details Date Type Department Care Team (Late st Contact Info) Description 08/10/2002 Results [address] [facility] conversion [address] [place] [address] Tanya Odonnell, SUPERVISORY INVESTIGATIVE SPECIALIST Social History Tobacco Use Types Packs/Day Years [...] Info) Description 06/29/2024 14:15 EST Office Visit [facility] Rheumatology [address] [place] [address] Nysaia Warner MD 130 [facility] [address] [place] [address] documented as of this encounter [...] ? ZENY HENRIQUEZ ? Accession #: ? [id number] : ? 1980 (Age: 22) ??F ?Collect [...] End of Report ABIDA CLEMENTE 08/10/2002 08/12/2002 us Tanya Odonnell APRN PATHOLOGY ORDERABLES Fi nal Result [facility] CLE[facility] [address] [place] [address] documented in this encounter Visit Diagnoses Not on filedocumented in this encounter
--- OUTSIDE RECORDS SUMMARY | 2024-05-11 15:20 | XMS_ITS | Encounter Summary ---
Author Organization [facility] Address [address] [place] [address] Care Team Providers Care Box Order Person Name Role Phone Ricardo Candelario MD Primary Care Provider [phone] Reason for Visit * Reason Comments New Patient Visit vulva irritation for about 1 month-started as a rash and is getting worse this last week Encounter Details Date Type Department Care Team (Late st Contact Info) Description 02/28/2011 13:00 EDT Office Visit [facility] OBGYN Services - [address] [address] Edgard Hernandez MD MSc Acute vulvitis (Primary [...] Info) Description 06/29/2024 14:15 EST Office Visit [facility] Rheumatology [address] [place], [place] [phone] Nyasia Warner MD [address] [facility] [address] [place] [phone] documented as of this encounter Visit Diagnoses Diagnosis Acute vulvitis- Primary Vaginitis and vulvovaginitis, unspecified documented in this encounter Historical Medications * This list may reflect changes made after this encounter. cephALEXin (KEFLEX) 500 mg capsule Take 500 mg by mouth 3 times daily. 02/28/2011 02/28/2011 gabapentin (NEURONTIN) 300 mg capsule Take 300 mg by mouth 3 times daily. 10/04/2014 added in this encounter Care Teams Box Order Person Relationship Specialty Start Date End Date Ricardo Candelario MD [address] [place] [address] [address] [place] [phone] PCP - General 02/27/11 09/08/18 documented as of this encounter
--- OUTSIDE RECORDS SUMMARY | 2024-05-11 15:20 | XMS_ITS | Encounter Summary ---
Author Organization [facility] Address [address] [place] [address] Care Team Providers Care Bow Stapler Name Role Phone Ricardo Candelario MD Primary Care Provider [phone] Reason for Visit * Consult, Test and Treat (Routine) - Specialty Report Received Specialty Diagnoses / Procedures [facility] Referred To Contact Diagnoses Dysphagia, unspecified(787.20) Procedures UPPER ENDOSCOPY Christopher German MD Phone: tel: fax: Referral ID Status Reason Start Date Expiration Date V isits Requested Visits Authorized [id number] Specialty Report Received 10/05/2014 1 1 Encounter Details Date Type Department Care Team (Late st Contact Info) Description 12/01/2014 12:20 EDT - 12/01/2014 23:59 EDT Hospital Encounter [facility] Endoscopy - [address] [phone] Christopher German MD [address] [place] [address], [address] 5 [place] [phone] Dysphagia, unspecified(787.20) Discharge Disposition: Home or Self [...] this encounter Medications at Time of Discharge fluticasone (FLONASE) 50 mcg/actuation nasal spray Instill 50 mcg into both nostrils daily KETOTIFEN FUMARATE (ALLERGY EYE, KETOTIFEN, OPHTHALMIC) Apply 1 Drop to eye omeprazole (PRILOSEC) 20 mg capsule Take 20 mg by mouth 2 times daily 05/21/2015 documented as of this encounter Discharge Disposition Disposition Code Departure Means Destination Home or Self Retirement documented in this encounter Plan of Treatment Upcoming Encounters Date Type Department Care Team (Late st Contact Info) Description 06/29/2024 14:15 EST Office Visit [facility] Rheumatology [address] [place], [place] [phone] Nyasia Warner MD 130 [facility] [address] [place] [phone] documented as of this encounter Visit Diagnoses Diagnosis Dysphagia, unspecified(787.20) Dysphagia, unspecified documented in this encounter Orders Imaging Orders Without Results Count Last Order ed Date First Ordered Date UPPER ENDOSCOPY 1 12/04/2014 documented in this encounter Care Teams Bow Stapler Relationship Specialty Start Date End Date Ricardo Candelario MD [address] [place] [phone] PCP - General 02/27/11 09/08/18 documented as of this encounter
--- OUTSIDE RECORDS SUMMARY | 2024-05-11 15:20 | XMS_ITS | Encounter Summary ---
Author Organization [facility] Address [address] [place] [address] Care Team Providers Care Nursing Student Name Role Phone Ricardo Candelario MD Primary Care Provider [phone] Reason for Visit * Reason Onset Date Comments Appointment Related 10/23/2014 EGD Encounter Details Date Type Department Care Team (Late st Contact Info) Description 10/23/2014 Telephone [facility] Gastroenterology - [address] [address] Christopher German MD [address] [place] [address], [address] 5 [place] [address] Appointment Related (EGD) Social History [...] PCP to have a referral to an Pool Attendant instead of having an EGD. She was [...] Info) Description 06/29/2024 14:15 EST Office Visit [facility] Rheumatology [address] [place] [phone] Nyasia Warner MD [address] [facility] [address] [place] [phone] documented as of this encounter Visit Diagnoses Not on filedocumented in this encounter Care Teams Nursing Student Relationship Specialty Start Date End Date Ricardo Candelario MD [address] [place] [address] [address] [place] [address] PCP - General 02/27/11 09/08/18 documented as of this encounter
--- OUTSIDE RECORDS SUMMARY | 2024-05-11 15:20 | XMS_ITS ---
Author Organization Unknown Address [address] [place] [phone] Phone Care Team Providers Care Leather Whitener Name Role Phone ARMIDA Olson Attending Unavailable Social History Type Status Start Date End Date Code Code Syst em Smoking History Never smoker (Never Smoked) [id number] SNOMED CT Sex Female Hospital Discharge Instructions [...]
--- OUTSIDE RECORDS SUMMARY | 2024-05-11 15:20 | XMS_ITS | Encounter Summary ---
Author Organization [facility] Address [address] [place] [address] Care Team Providers Care Molecular Genetic Pathologist Name Role Phone Edgard Candelario MD Primary Care Provider [phone] Encounter Details Date Type Department Care Team (Late st Contact Info) Description 12/01/2014 11:21 EDT - 12/01/2014 14:18 EDT Hospital Encounter [facility] Endoscopy Outpatient [address] [place] [address] Tarik Rene MD 111 [facility] [address] [place] [phone] Discharge Disposition: Home or Self Care Social [...] & Physical Date: 12/01/2014 Time: 12:30 Location: [address] Planned Procedure: Gastroscopy Chief Complaint/Indications for Procedure: [...] Info) Description 06/29/2024 14:15 EST Office Visit [facility] Rheumatology [address] [place] [address] Nyasia Warner MD 130 [facility] [address] [place] [phone] documented as of this encounter Procedures Procedure Name Priority Date/Time Associated Diagnosis Comments PROCEDURE REPORTS - SCANNED 12/02/2014 0:35 EDT SURGICAL PATHOLOGY Routine 12/01/2014 15 :16 EDT COMPLETE BLOOD COUNT AND DIFFERENTIAL Routine 12/01/2014 13:00 EDT documented in this encounter Results * PROCEDURE REPORTS - SCANNED (12/02/2014 0:35 EDT) 12/02/2014 0:35 EDT us Scan 2 Child Welfare Worker PROCEDURE/MINOR SURGICAL OR DERABLES Final Result * SURGICAL PATHOLOGY (12/01/2014 15:16 EDT) Pathology Report: SURGICAL PATHOLOGY REPORT Reports generated via electronic interface contain original data; however they are lacking the format of the original report. Caution should be taken when reading/interpretin g unformatted reports. Name: ? ZENY CHOW ? Accession #: ? [id number] ? : ? 1980 (Age: 34) ??F [...] Carrillo 12/01/2014 06:47 PM End of Report [facility] 12/01/2014 15:1 6 EDT 12/01/2014 15:16 EDT Tarik Rene MD PATHOLOGY ORDERABLES Final Result [facility] [address] [place] [address] * (ABNORMAL) HEMAGRAM AND DIFFERENTIAL (12/01/2014 13:00 EDT) WBC 7.12 4.0 - 12.4 K/cmm 12/01/2014 13:32 [facility] RBC 4.36 3.86 - 5.04 M/cmm 12/01/2014 13:32 [facility] Hemoglobin 13.3 11.6 - 15.2 gm/dl 12/01/2014 13:32 [facility] HCT 37.9 34.9 - 44.4 % 12/01/2014 13:32 [facility] MCV 87 81 - 98 fl 12/01/2014 13:32 [facility] MCH 30.5 26.7 - 33.3 pg 12/01/2014 13:32 [facility] MCHC 35.1 32.1 - 35.9 gm/dl 12/01/2014 13:32 [facility] RDW-CV 12.7 11.7 - 14.6 % 12/01/2014 13:32 [facility] RDW-SD 38.5 37.6 - 50.3 fl 12/01/2014 13:32 [facility] PLT 242 141 - 320 K/cmm 12/01/2014 13:32 [facility] MPV 7.2(L) 7.5 - 11.2 fl 12/01/2014 13:32 [facility] % Neutrophils 62.5 45.5 - 79.7 % 12/01/2014 13:32 [facility] % Lymphocytes 27.8 15.0 - 46.8 % 12/01/2014 13:32 [facility] % Monocytes 7.5 1.8 - 12.0 % 12/01/2014 13:32 [facility] % Eosinophils 1.1 0.6 - 6.9 % 12/01/2014 13:32 [facility] % Basophils 1.1 0.2 - 1.4 % 12/01/2014 13:32 [facility] ABS Neutrophils 4.45 2.20 - 8.85 K/cmm 12/01/2014 13:32 [facility] ABS Lymphs 1.98 1.09 - 3.30 K/cmm 12/01/2014 13:32 [facility] ABS Monocytes 0.54 0.1 - 0.8 K/cmm 12/01/2014 13:32 [facility] ABS Eosinophils 0.08 0.03 - 0.61 K/cmm 12/01/2014 13:32 [facility] ABS Basophils 0.08 0.01 - 0.11 K/cmm 12/01/2014 13:32 [facility] Type of Diff: Automated 12/01/2014 13:32 [facility] Blood specimen (specimen) BLOOD SPECIMEN / Unknown 12/01/2014 13:00 EDT 12/01/2014 13:25 EDT Tarik Rene MD PACKAGES & DNA PROBE ORDER JOHN Final Result [facility] [address] [place] [address] documented in this encounter Visit Diagnoses Not [...] 12/01/2014 documented in this encounter Care Teams Molecular Genetic Pathologist Relationship Specialty Start Date End Date Edgard Candelario MD [address] [place] [phone] PCP - General 02/27/11 09/08/18 documented as of this encounter
--- OUTSIDE RECORDS SUMMARY | 2024-05-11 15:20 | XMS_ITS | Encounter Summary ---
Author Organization [facility] Address [address] [place] [address] Care Team Providers Care Marker Delivery Name Role Phone Ricardo Candelario MD Primary Care Provider [phone] Encounter Details Date Type Department Care Team (Late st Contact Info) Description 05/23/2011 Phlebotomy Only [address] [address] Incubator Operator, Outpatient Social History Tobacco Use Types Packs/Day [...] Info) Description 06/29/2024 14:15 EST Office Visit [facility] Rheumatology [address] [place] [address] Nyasia Warner MD 130 [facility] [address] [place] [address] documented as of this encounter Visit Diagnoses Not on filedocumented in this encounter Care Teams Marker Delivery Relationship Specialty Start Date End Date Ricardo Candelario MD [address] [place] [address] PCP - General 02/27/11 09/08/18 documented as of this encounter
--- OUTSIDE RECORDS SUMMARY | 2024-05-11 15:20 | XMS_ITS | Encounter Summary ---
Author Organization [facility] Address [address] [place] [address] Care Team Providers Care Communications Electrician Supervisor Name Role Phone Ricardo aCndelario MD Primary Care Provider [phone] Encounter Details Date Type Department Care Team (Latest Contact Info) Description 02/25/2012 9:02 EDT - 02/25/2012 23:59 EDT Hospital Encounter [facility] [address] [place] [address] Leander Beauchamp MD [address] [place] [phone] Discharge Disposition: Home or Self Care [...] this encounter Medications at Time of Discharge gabapentin (NEURONTIN) 300 mg capsule Take 300 mg by mouth 3 times daily. 10/04/2014 documented as of this encounter Discharge Disposition Disposition Code Departure Means Destination Home or Self Assisted documented in this encounter Plan of Treatment Upcoming Encounters Date Type Department Care Team (Late st Contact Info) Description 06/29/2024 14:15 EST Office Visit [facility] Rheumatology [address] [place] [address] Nyasia Warner MD 130 [facility] [address] [place] [address] documented as of this encounter Visit Diagnoses Not on filedocumented in this encounter Care Teams Communications Electrician Supervisor Relationship Specialty Start Date End Date Ricardo Candelario MD [address] [place] [address] [address] [place] [phone] PCP - General 02/27/11 09/08/18 documented as of this encounter
--- OUTSIDE RECORDS SUMMARY | 2024-05-11 15:20 | XMS_ITS | Encounter Summary ---
Author Organization [facility] Address [address] [place] [address] Care Team Providers Care Scientific Database Curator Name Role Phone Ricardo Candelario MD Primary Care Provider [phone] Encounter Details Date Type Department Care Team (Late st Contact Info) Description 03/31/2013 Results Only [facility] - [facility] [address] [place] [phone] Glen Mukherjee MD [address] [place], [place] [phone] Social History Tobacco Use Types Packs/Day Years [...] Info) Description 06/29/2024 14:15 EST Office Visit [facility] [address] [place] [address] Nyasia Warner MD 130 [facility] [address] [place] [address] documented as of this encounter [...] ? ZENY CHOW ? Accession #: ? [id number] ? : ? 1980 (Age: 33) ??F [...] types 16,18,31,33,35, 39,45,51,52,56,58, 59,66, and 68 by lumber salvager mediated amplification. Comments Document reviewed and electronically signed by: ? System Interface ? Report date: 04/09/2013 By the signature above, the attending physician certifies that he/she has personally conducted a gross and/or microscopic examination of the described specimens and rendered or confirmed the above diagnosis. End of Report [facility] 03/31/2013 04/04/2013 us Glen Mukherjee MD PATHOLOGY ORDERABLES Final Re sult [facility] [address] [place] [address] documented in this encounter Visit Diagnoses Not on filedocumented in this encounter Care Teams Scientific Database Curator Relationship Specialty Start Date End Date Ricardo Candelario MD 84 [facility] [address] [place] [address] PCP - General 02/27/11 09/08/18 documented as of this encounter
--- OUTSIDE RECORDS SUMMARY | 2024-05-11 15:20 | XMS_ITS | Encounter Summary ---
Author Organization [facility] Address [address] [place] [address] Care Team Providers Care Highway Worker Name Role Phone Ricardo Candelario MD Primary Care Provider [phone] Reason for Referral * Consult, Test and Treat (Routine) - Specialty Report Received Specialty Diagnoses / Procedures Referred By [facility] t Referred To Contact Diagnoses Dysphagia, unspecified dysphagia Procedures ESOPHAGEAL MANOMETRY Christopher German MD Phone: tel: fax: Ash Villagomez MD PhD Phone: tel: fax: Referral ID Status Reason Start Date Expiration Date V isits Requested Visits Authorized [id number] Specialty Report Received 03/08/2015 1 1 Reason for Visit * Reason Comments Follow-up reflux: pt says unco mfortable when sleep, pain in stomach, avoiding foods: still trying to figure out what is triggering pain Encounter Details Date Type Department Care Team (Late st Contact Info) Description 03/07/2015 10:40 EDT Office Visit [facility] Gastroenterology - [facility] [address] [place] [address] Christopher German MD 111 [facility], [facility], [address] [place] [address] Dysphagia, unspecified dysphagia (Primary Dx); Generalized [...] 03/07/2015 10:58 EDT documented in this encounter Discharge Diagnoses [...] basic labs. She may benefit from a airplane navigator consult in the future if we don't turn up anything. Plan: -esophageal manometry -CBC, LFTs, TTG and IgA, CRP Christopher German MD documented in this encounter Plan of Treatment Upcoming Encounters Date Type Department Care Team (Late st Contact Info) Description 06/29/2024 14:15 EST [facility] Rheumatology [address] [place], [place] [address] Nyasia Warner MD 130 [facility] [address] [place] [address] Scheduled Orders Name Type Priority Associated Diagnoses Orde r Schedule ESOPHAGEAL MANOMETRY GI Routine Dysphagia, Unspecified Dysphagia Expected: 03/08/2015 documented as of this encounter Results * HEMAGRAM AND DIFFERENTIAL (03/07/2015 12:38 EDT) WBC 6.72 4.0 - 12.4 K/cmm 03/07/2015 13:09 [facility] RBC 4.62 3.86 - 5.04 M/cmm 03/07/2015 13:09 [facility] Hemoglobin 14.0 11.6 - 15.2 gm/dl 03/07/2015 13:09 [facility] HCT 41.1 34.9 - 44.4 % 03/07/2015 13:09 [facility] MCV 89 81 - 98 fl 03/07/2015 13:09 [facility] MCH 30.2 26.7 - 33.3 pg 03/07/2015 13:09 [facility] MCHC 34.0 32.1 - 35.9 gm/dl 03/07/2015 13:09 [facility] RDW-CV 12.7 11.7 - 14.6 % 03/07/2015 13:09 [facility] RDW-SD 39.4 37.6 - 50.3 fl 03/07/2015 13:09 [facility] PLT 287 141 - 320 K/cmm 03/07/2015 13:09 [facility] MPV 7.9 7.5 - 11.2 fl 03/07/2015 13:09 [facility] % Neutrophils 62.1 45.5 - 79.7 % 03/07/2015 13:09 [facility] % Lymphocytes 29.9 15.0 - 46.8 % 03/07/2015 13:09 [facility] % Monocytes 6.6 1.8 - 12.0 % 03/07/2015 13:09 [facility] % Eosinophils 1.0 0.6 - 6.9 % 03/07/2015 13:09 [facility] % Basophils 0.4 0.2 - 1.4 % 03/07/2015 13:09 [facility] ABS Neutrophils 4.17 2.20 - 8.85 K/cm 03/07/2015 13:09 [facility] ABS Lymphs 2.01 1.09 - 3.30 K/cm 03/07/2015 13:09 [facility] ABS Monocytes 0.44 0.1 - 0.8 K/cm 03/07/2015 13:09 [facility] ABS Eosinophils 0.07 0.03 - 0.61 K/cm 03/07/2015 13:09 [facility] ABS Basophils 0.02 0.01 - 0.11 K/cmm 03/07/2015 13:09 [facility] Type of Diff: Automated 03/07/2015 13:09 [facility] Blood specimen (specimen) BLOOD SPECIMEN / Unknown 03/07/2015 12:38 EDT 03/07/2015 12:47 EDT Christopher German MD PACKAGES & DNA PROBE ORDER JOHN Final Result [facility] [address] [place] [address] * IGA (03/07/2015 12:38 EDT) IgA 283 82 - 453 mg/dl 03/07/2015 16:12 EDT [facility] Blood specimen (specimen) BLOOD SPECIMEN / Unknown 03/07/2015 12:38 EDT 03/07/2015 12:47 EDT us Christopher German MD CHEMISTRY & BLOOD GAS ORDE RABLES Final Result Performing Organization Address [facility] Co de Phone Number [facility] [address] [place] [address] * TISSUE TRANSGLUTAMINASE AB (03/07/2015 12:38 EDT) Tissue Transglut Ab <1.2 <4 U/mL 03/09/2015 12:25 EDT [facility] Comment: The following results were obtained with the [employer] QUANTA Lite R h-tTG IgA SIM assay on the veriCAR DSX. A negative result may be due to IgA deficiency and does not rule out celiac disease. Blood specimen (specimen) BLOOD SPECIMEN / Unknown 03/07/2015 12:38 EDT 03/07/2015 12:47 EDT Christopher German MD IMMUNOLOGY AND SEROLOGY OR DERABLES Final Result Performing Organization Address [facility] Co de Phone Number [facility] [address] [place] [address] * C REACTIVE PROTEIN (03/07/2015 12:38 EDT) Pathologist [facility] C Reactive Protein 7.3 <10.0 mg/L 03/07/2015 13:28 EDT [facility] Comment: Note units change to mg/L. Values will be 10 fold higher than with previous units of mg/dl. Blood specimen (specimen) BLOOD SPECIMEN / Unknown 03/07/2015 12:38 EDT 03/07/2015 12:47 EDT Christopher German MD CHEMISTRY & BLOOD GAS ORDE RABLES Final Result Performing Organization Address [facility] Co de Phone Number [facility] [address] [place] [address] * (ABNORMAL) HEPATIC FUNCTION PANEL (ALB,ALK PHOS,ALT,AST,DBIL,TOT PAUL,TOT PROT) (03/07/2015 12:38 EDT) Albumin 4.8 3.4 - 4.9 g/dl 03/07/2015 13:28 EDT [facility] Total Protein 8.3(H) 6.3 - 8.2 g/dl 03/07/2015 13:28 T [facility] Total Alkaline Phosphatase 68 38 - 126 U/L 03/07/2015 13:28 [facility] ALT 31 <53 U/L 03/07/2015 13:28 T [facility] AST 32 15 - 46 U/L 03/07/2015 13:28 T [facility] Unconjugated Bilirubin 0.2 0.0 - 1.1 mg/dl 03/07/2015 13:28 [facility] Conjugated Bilirubin 0.0 0.0 - 0.3 mg/dl 03/07/2015 13:28 [facility] Bilirubin, Total 0.6 <1.4 mg/dl 03/07/20 15 13:28 [facility] Blood specimen (specimen) BLOOD SPECIMEN / Unknown 03/07/2015 12:38 EDT 03/07/2015 12:47 EDT us Christopher German MD CHEMISTRY & BLOOD GAS ORDE [facility] Final Result Performing Organization Address City/State/[facility] Co de Phone Number [facility] [address] [place] [address] documented in this encounter Visit Diagnoses Diagnosis Dysphagia, unspecified dysphagia- Primary Generalized abdominal pain Abdominal pain, generalized documented in this encounter Care Teams Highway Worker Relationship Specialty Start Date End Date Ricardo Candelario MD [address] [place], [place] [address] [place] [address] PCP - General 02/27/11 09/08/18 documented as of this encounter
--- OUTSIDE RECORDS SUMMARY | 2024-05-11 15:20 | XMS_ITS | Encounter Summary ---
Author Organization [facility] Address [address] [place] [address] Care Team Providers Care Soil Technician Name Role Phone Unavailable Primary Care Provider Unavailabl e Encounter Details Date Type Department Care Team (Late st Contact Info) Description 12/19/2005 Before PRISM Converted Visit (Maple) [facility] - Maple conversion [address] [place], [place] [phone] Prabha Talbert PA-C 111 [facility] 5 [place] [address] Social History Tobacco Use Types Packs/Day Years Used Date Smoking Tobacco: Never Assessed Comments Unknown Sex and Gender Information Value Date Recorded Sex Assigned at Not on file Legal Sex Female 18:17 EST Gender Identity Female 07/31/2021 7:58 EST Sexual Orientation Not on file documented as of this encounter Progress Notes * Prahba Talbert PA - 06/01/2009 1256 EST DIVISION OF NEUROSURGERY PROGRESS/FOLLOWUP NOTE - 12/19/2005 December 19, [address] [facility] [address] [place] [address] Benton: I saw Cathy Minaya [...] 11:38 Reji Rodney PAMichael A Horgan, MDAssociate ProfessorSouthwestern [place] Medical CenterDivision of Neurological Surgery Dictated by: ZORA Mo Dean Andrade MD Didactic Instructor [facility] Division of Neurological Surgery - ZORA Mo P - bb Job ID: [id number] Document ID: [id number] cc: Ricardo Candelario MD documented in this encounter Plan of Treatment Upcoming Encounters Date Type Department Care Team (Late st Contact Info) Description 06/29/2024 14:15 EST Office Visit [facility] Rheumatology [address] [place] [address] Nyasia Warner MD [address] [place] [address] [address] [place] [phone] documented as of this encounter Visit Diagnoses Not on filedocumented in this encounter
--- OUTSIDE RECORDS SUMMARY | 2024-05-11 15:20 | XMS_ITS | Encounter Summary ---
Author Organization [facility] Address [address] [place] [address] Care Team Providers Care Preparation Supervisor Freezing Name Role Phone Ricardo Candelario MD Primary Care Provider Reason for Referral * Consult, Test and Treat (Routine) - Specialty Report Received Specialty Diagnoses / Procedures [facility] Referred To Contact Diagnoses Dysphagia, unspecified(547.83) Procedures UPPER ENDOSCOPY Christopher German MD Phone: tel: fax: Referral ID Status Reason Start Date Expiration Date V isits Requested Visits Authorized [id number] Specialty Report Received 10/05/2014 1 1 Reason for Visit * Reason Comments New Patient Visit dysphagia * Consult (Routine) - Closed Specialty Diagnoses / Procedures Referred By Contact Referred To Contact Gastroenterology and Hepatology Diagnoses Dysphagia Ricardo Candelario MD [address] [place] [address] [address] [place] [address] Phone: tel: fax: Christopher German MD Phone: tel:[phone] fax:[phone] Referral ID Status Reason Start Date Expiration Date Visits Re quested Visits Authorized [id number] Closed 1 1 Encounter Details Date Type Department Care Team (Late st Contact Info) Description 10/04/2014 10:40 EDT Office Visit [facility] Gastroenterology - Main [place] [address] [place] [address] Christopher German MD [address] [place] [address], [address] [place] [address] Dysphagia, unspecified(787.20 ) (Primary Dx) [...] Info) Description 06/29/2024 14:15 EST Office Visit [facility] Rheumatology [address] [place] [address] [phone] Nyasia Warner MD [address] [place] [address] [address] [place] [phone] Scheduled Orders Name Type Priority Associated Diagnoses Orde r Schedule UPPER ENDOSCOPY GI Routine Dysphagia, unspecified(788.20) Expected: 10/05/2014 documented as of this encounter [...] may reflect changes made after this encounter. KETOTIFEN FUMARATE (ALLERGY EYE, KETOTIFEN, OPHTHALMIC) Apply 1 Drop to eye fluticasone (FLONASE) 50 mcg/actuation nasal spray Instill 50 mcg into both nostrils daily omeprazole (PRILOSEC) 20 mg capsule Take 20 mg by mouth 2 times daily 05/21/2015 added in this encounter Care Teams Preparation Supervisor Freezing Relationship Specialty Start Date End Date Ricardo Candelario MD [address] [facility] [address] [place] [phone] PCP - General 02/27/11 09/08/18 documented as of this encounter
--- OUTSIDE RECORDS SUMMARY | 2024-05-11 15:20 | XMS_ITS | Encounter Summary ---
Author Organization [facility] Address [address] [place] [address] Care Team Providers Care Bacon Skinner Name Role Phone Unavailable Primary Care Provider Unavailabl e Encounter Details Date Type Department Care Team (Latest Contact Info) Description 12/19/2005 13:04 EDT Hospital Encounter [facility] [address] [place] [address] Dean Andrade MD [address] [place] [phone] Discharge Disposition: Auto Discharge Social History [...] Visit [facility] Rheumatology [address] [place], [place] [address] Nyasia Warner MD 130 [facility] [address] [place] [address] documented as of this encounter [...] ? ZENY HENRIQUEZ ? Accession #: ? [id number] ? : ? 1980 (Age: 28) ??F [...] reviewed and electronically signed by: ? Honey Fernandezg, CT(ASCP) ? Report Date: ??2009 15:20 ? End of Report ? [facility] 02/13/2009 02/15/2009 Glen Mukherjee MD PATHOLOGY ORDERABLES Final Re sult Performing Organization Address [facility] de Phone Number [facility] [address] [place] [address] * HUMAN PAPILLOMA VIRUS DNA TEST (01/06/2008 11:05 EDT) Specimen Description Cervix, ThinPrep vial [facility] Result Negative for HPV types 16, 18, 31, 33, 35, 39, 45, 51, 52, 56, 58, 59, and 68. [facility] Report Status Final [id number] [facility] 01/06/2008 11:0 5 EDT 01/17/2008 11:05 EDT Glen Mukherjee MD MICROBIOLOGY - GENERAL ORDERA BLES Final Result Performing Organization Address [facility] de Phone Number [facility] [address] [place] [address] * CYTOPATHOLOGY (01/06/2008 0:00 EDT) Pathology Report: CYTOPATHOLOGY REPORT Reports generated via electronic interface contain original data; however they are lacking the format of the original report. Caution should be taken when reading/interpreti ng unformatted reports. Name: ? FLORENCE, ZENY ? Accession #: ? [id number] : ? 1980 (Age: 27) ??F ?Collect Date: ? 01/06/2008 Location: ? [facility] ? Receive Date: ? 01/07/2008 Provider: ?Eric MUKHERJEE MD Copy to: ? Specimen/Source: ?ThinPrep Pap Test, Cervix, processed on [employer] ThinPrep Imaging System, with manual evaluation Last [...] with Brit species. EDUCATIONAL NOTES/RECOMMENDATI ONS ? [facility] recommends following the 2006 Consensus Guidelines for the Management of Women with Abnormal Cervical Cancer Screening Tests (JLGTD, 2007;11(4):201-222 ). ??Consensus guidelines are available online at www.ASCCP.org. ? Document reviewed and electronically signed by: ? Margarita Calvert MD ? Report Date: ??01/16/2008 11:49 End of Report [facility] 01/06/2008 01/07/2008 us Glen Mukherjee MD PATHOLOGY ORDERABLES Final Re sult [facility] [address] [place] [address] * CYTOPATHOLOGY (01/06/2008 0:00 EDT) Pathology Report: CYTOPATHOLOGY REPORT ? Reports generated via electronic interface contain original data; ? however they are lacking the format of the original report. ? Caution should be taken when reading/interpreti ng unformatted reports. ? Name: ? HENRIQUEZ, ZENY ? Accession #: ? [id number] ? : ? 1980 (Age: 27) ??F [...] Brit species. ? EDUCATIONAL NOTES/RECOMMENDATI ONS ? [facility] recommends following the 2006 Consensus Guidelines for the Management of Women with Abnormal Cervical Cancer Screening Tests (JLGTD, ? 2007;11(4):201-222 ). ??Consensus guidelines are available online at ? www.ASCCP.org. ? Document reviewed and electronically signed by: ? Margarita C Calvert MD ? Report Date: ??01/16/2008 11:49 ? End of Report ? [facility] 01/06/2008 01/07/2008 us Glen Mukherjee MD PATHOLOGY ORDERABLES Final Re sult [facility] [address] [place] [address] documented in this encounter Visit Diagnoses Not on filedocumented in this encounter
--- OUTSIDE RECORDS SUMMARY | 2024-05-11 15:20 | XMS_ITS | Encounter Summary ---
Author Organization [facility] Address [address] [place] [address] Care Team Providers Care Telescope Repairer Name Role Phone Unavailable Primary Care Provider Unavailabl e Encounter Details Date Type Department Care Team (Latest Contact Info) Description 11/18/2005 10:39 EDT - 11/18/2005 11:59 EDT Hospital Encounter [facility] Emergency Department - Main [place] [address] [place], [place] [address] Emergency, MD Darlyn Discharge Disposition: Home or Self Care Social [...] Info) Description 06/29/2024 14:15 EST Office Visit [facility] Rheumatology [address] [place], [place] [phone] Nyasia Warner MD 130 [facility] [address] [place] [phone] documented as of this encounter Procedures Procedure Name Priority Date/Time Associated Diagnosis Comments CHEST PA AND LATERAL 11/18/2005 12:[address] HEAD WO CONTRAST 11/18/2005 1 2:21 EDT documented in this encounter Results * CHEST PA AND LATERAL (11/18/2005 12:39 EDT) Anatomical Region Laterality Modality Other 11/18/2005 12:3 9 EDT Narrative 01/06/2009 13:58 EDT FALL WITH 4D REHABILITATOR SHORTNESS OF BREATH WHEEZING THIOS MORNING R/O PNRUMOTHORAX PULMINARY CONTUSION 2 views of the Chest were obtained. Clinical Indication: FALL WITH ??4D REHABILITATOR SHORTNESS OF BREATH ??WHEEZING THIOS MORNING ??R/O [...] Short MD - 01/06/2009 FALL WITH 4D REHABILITATOR SHORTNESS OF BREATH WHEEZING THIOS MORNING R/O PNRUMOTHORAX PULMINARY CONTUSION 2 views of the Chest were obtained. Clinical Indication: FALL WITH 4D REHABILITATOR SHORTNESS OF BREATH WHEEZING THIOS MORNING R/O [...] and lateral chest radiographs. Jabari Walsh MD IM DIAGNOSTIC IMAGING BRADLEY MARTIN Final Result * CT HEAD WO CONTRAST (11/18/2005 12:21 [...] temporal bone fracture. D: ??11/18/2005 T: ??11/19/2005 /[facility] I have personally reviewed the [...] appearance of the left temporal bone fracture. /[facility] I have personally reviewed the images and the above interpretation and agree with the findings. us Jabari Walsh MD IMG CT ORDERABLES Final Res ult documented in this encounter Visit Diagnoses Not on filedocumented in this encounter
--- OUTSIDE RECORDS SUMMARY | 2024-05-11 15:20 | XMS_ITS | Encounter Summary ---
Author Organization [facility] Address [address] [place] [address] Care Team Providers Care Tinning Equipment Tender Name Role Phone Unavailable Primary Care Provider Unavailabl e Encounter Details Date Type Department Care Team (Late st Contact Info) Description 05/12/2000 Results Only [facility] conversion [address] [place] [address] Cristobal Morales MD Social History Tobacco Use [...] Info) Description 06/29/2024 14:15 EST Office Visit [facility] Rheumatology [address] [place] [phone] Nyasia Warner MD [address] [facility] [address] [place] [address] documented as of this encounter [...] ? ZENY HENRIQUEZ ? Accession #: ? [id number] : ? 1980 (Age: 20) ??F ?Collect [...] End of Report [facility] 05/12/2000 05/18/2000 us Cristobal Morales MD PATHOLOGY ORDERABLES Final Res ult [facility] [address] [place] [address] documented in this encounter Visit Diagnoses Not on filedocumented in this encounter
--- OUTSIDE RECORDS SUMMARY | 2024-05-11 15:20 | XMS_ITS | Encounter Summary ---
Author Organization [facility] Address [address] [place] [address] Care Team Providers Care Crop Duster Name Role Phone Ricardo Candelario MD Primary Care Provider [phone] Encounter Details Date Type Department Care Team (Late st Contact Info) Description 04/13/2012 Abstract [facility] Hand & Upper Extremity Program - [place] [address] [place] [address] Leander Beauchamp MD [address] [place] [phone] Social History Tobacco Use Types Packs/Day [...] Info) Description 06/29/2024 14:15 EST Office Visit [facility] Rheumatology [address] [place] [address] Nyasia Warner MD 130 [facility] [address] [place] [address] documented as of this encounter Visit Diagnoses Not on filedocumented in this encounter Care Teams Crop Duster Relationship Specialty Start Date End Date Ricardo Candelario MD [address] [place] [address] [address] [place] [address] PCP - General 02/27/11 09/08/18 documented as of this encounter
--- OUTSIDE RECORDS SUMMARY | 2024-05-11 15:20 | XMS_ITS | Encounter Summary ---
Author Organization [facility] Address [address] [place] [address] Care Team Providers Care Acoustic Warfare Analyst Name Role Phone Unavailable Primary Care Provider Unavailabl e Encounter Details Date Type Department Care Team (Late st Contact Info) Description 10/13/2001 Results Only [facility] conversion [address] [place] [address] Cristobal Morales MD Social History Tobacco Use [...] Info) Description 06/29/2024 14:15 EST Office Visit [facility] Rheumatology [address] [place], [place] [address] Nyasia Warner MD 130 [facility] [address] [place] [address] documented as of this encounter [...] ? FERNIE HENRIQUEZANDA ? Accession #: ? [id number] : ? 1980 (Age: 21) ??F ?Collect Date: ? 10/13/2001 Location: ? [facility] ? Receive Date: ? 10/15/2001 Provider: ?CRISTOBAL MORALES MD Copy to: ? Specimen/Source: ?ThinPrep Pap Test, Cervix/Endocervix Last Menstrual Period: ? 09/13/01 Hormonal/Contracep tive Status: ? Yes Previous Gynecologic Pathology: ? 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 Cryotherapy: 11/20 Other: ? Client ID#: [id number] ? SPECIMEN ADEQUACY ? Satisfactory for Evaluation [...] End of Report [facility] 10/13/2001 10/15/2001 us Cristobal Morales MD PATHOLOGY ORDERABLES Final Res ult [facility] [address] [place] [address] documented in this encounter Visit Diagnoses Not on filedocumented in this encounter
--- OUTSIDE RECORDS SUMMARY | 2024-05-11 15:20 | XMS_ITS | Encounter Summary ---
Author Organization [facility] Address [address] [place] [address] Care Team Providers Care Manager R D Name Role Phone Ricardo Candelario MD Primary Care Provider [phone] Reason for Visit * Reason Onset Date Comments Appointment Related 04/08/2012 Encounter Details Date Type Department Care Team (Late st Contact Info) Description 04/08/2012 Telephone [facility] Rehabilitation Therapy - [address] [address] Therapy, Physical Appointment Related Social [...] Info) Description 06/29/2024 14:15 EST Office Visit [facility] Rheumatology [address] [place] [phone] Nyasia Warner MD [address] [place] [address] [address] [place] [phone] documented as of this encounter Visit Diagnoses Not on filedocumented in this encounter Care Teams Manager R D Relationship Specialty Start Date End Date Ricardo Candelario MD [address] [facility] [address] [place] [address] PCP - General 02/27/11 09/08/18 documented as of this encounter
--- OUTSIDE RECORDS SUMMARY | 2024-05-11 15:20 | XMS_ITS | Encounter Summary ---
Author Organization [facility] Address [address] [place] [address] Care Team Providers Care Strand Galvanizer Name Role Phone Ricardo Candelario MD Primary Care Provider [phone] Encounter Details Date Type Department Care Team (Late st Contact Info) Description 03/07/2015 Phlebotomy Only [address] [address] Forging Machine Hand, Outpatient Generalized abdominal pain (Primary Dx) Social [...] Info) Description 06/29/2024 14:15 EST Office Visit [facility] Rheumatology [address] [place] [address] Nyasia Warner MD 130 [facility] [address] [place] [address] documented as of this encounter Procedures Procedure [...] 6.72 4.0 - 12.4 K/cmm 03/07/2015 13:09 [facility] RBC 4.62 3.86 - 5.04 M/cmm 03/07/2015 13:09 [facility] Hemoglobin 14.0 11.6 - 15.2 gm/dl 03/07/2015 13:09 [facility] HCT 41.1 34.9 - 44.4 % 03/07/2015 13:09 [facility] MCV 89 81 - 98 fl 03/07/2015 13:09 [facility] MCH 30.2 26.7 - 33.3 pg 03/07/2015 13:09 [facility] MCHC 34.0 32.1 - 35.9 gm/dl 03/07/2015 13:09 [facility] RDW-CV 12.7 11.7 - 14.6 % 03/07/2015 13:09 [facility] RDW-SD 39.4 37.6 - 50.3 fl 03/07/2015 13:09 [facility] PLT 287 141 - 320 K/cmm 03/07/2015 13:09 [facility] MPV 7.9 7.5 - 11.2 fl 03/07/2015 13:09 [facility] % Neutrophils 62.1 45.5 - 79.7 % 03/07/2015 13:09 [facility] % Lymphocytes 29.9 15.0 - 46.8 % 03/07/2015 13:09 [facility] % Monocytes 6.6 1.8 - 12.0 % 03/07/2015 13:09 [facility] % Eosinophils 1.0 0.6 - 6.9 % 03/07/2015 13:09 [facility] % Basophils 0.4 0.2 - 1.4 % 03/07/2015 13:09 [facility] ABS Neutrophils 4.17 2.20 - 8.85 K/cmm 03/07/2015 13:09 [facility] ABS Lymphs 2.01 1.09 - 3.30 K/cm 03/07/2015 13:09 [facility] ABS Monocytes 0.44 0.1 - 0.8 K/cmm 03/07/2015 13:09 [facility] ABS Eosinophils 0.07 0.03 - 0.61 K/cmm 03/07/2015 13:09 [facility] ABS Basophils 0.02 0.01 - 0.11 K/cmm 03/07/2015 13:09 [facility] Type of Diff: Automated 03/07/2015 13:09 [facility] Blood specimen (specimen) BLOOD SPECIMEN / Unknown 03/07/2015 12:38 EDT 03/07/2015 12:47 EDT us Christopher German MD PACKAGES & DNA PROBE ORDER JOHN Final Result [facility] [address] [place] [address] * IGA (03/07/2015 12:38 EDT) IgA 283 82 - 453 mg/dl 03/07/2015 16:12 EDT [facility] Blood specimen (specimen) BLOOD SPECIMEN / Unknown 03/07/2015 12:38 EDT 03/07/2015 12:47 EDT Christopher German MD CHEMISTRY & BLOOD GAS ORDE RABLES Final Result Performing Organization Address [facility] de Phone Number [facility] [address] [place] [address] * TISSUE TRANSGLUTAMINASE AB (03/07/2015 12:38 EDT) Tissue Transglut Ab <1.2 <4 U/mL 03/09/2015 12:25 EDT [facility] Comment: The following results were obtained with the [employer] R h-tTG IgA SIM assay on the [employer] DSX. A negative result may be due to IgA deficiency and does not rule out celiac disease. Blood specimen (specimen) BLOOD SPECIMEN / Unknown 03/07/2015 12:38 EDT 03/07/2015 12:47 EDT us Christopher German MD IMMUNOLOGY AND SEROLOGY OR DERABLES Final Result Performing Organization Address [facility] de Phone Number [facility] [address] [place] [address] * C REACTIVE PROTEIN (03/07/2015 12:38 EDT) C Reactive Protein 7.3 <10.0 mg/L 03/07/2015 13:28 EDT [facility] Comment: Note units change to mg/L. Values will be 10 fold higher than with previous units of mg/dl. Blood specimen (specimen) BLOOD SPECIMEN / Unknown 03/07/2015 12:38 EDT 03/07/2015 12:47 EDT Christopher German MD CHEMISTRY & BLOOD GAS ORDE RABLES Final Result [facility] [address] [place] [address] * (ABNORMAL) HEPATIC FUNCTION PANEL (ALB,ALK PHOS,ALT,AST,DBIL,TOT PAUL,TOT PROT) (03/07/2015 12:38 EDT) Albumin 4.8 3.4 - 4.9 g/dl 03/07/2015 13:28 EDT [facility] Total Protein 8.3(H) 6.3 - 8.2 g/dl 03/07/2015 13:28 EDT [facility] Total Alkaline Phosphatase 68 38 - 126 U/L 03/07/2015 13:28 T [facility] ALT 31 <53 U/L 03/07/2015 13:28 T [facility] AST 32 15 - 46 U/L 03/07/2015 13:28 T [facility] Unconjugated Bilirubin 0.2 0.0 - 1.1 mg/dl 03/07/2015 13:28 T [facility] Conjugated Bilirubin 0.0 0.0 - 0.3 mg/dl 03/07/2015 13:28 T [facility] Bilirubin, Total 0.6 <1.4 mg/dl 03/07/20 15 13:28 [facility] Blood specimen (specimen) BLOOD SPECIMEN / Unknown 03/07/2015 12:38 EDT 03/07/2015 12:47 EDT Christopher German MD CHEMISTRY & BLOOD GAS [facility] Final Result [facility] [address] [place] [address] documented in this encounter Visit Diagnoses Diagnosis Generalized abdominal pain- Primary Abdominal pain, generalized documented in this encounter Care Teams Strand Galvanizer Relationship Specialty Start Date End Date Ricardo Candelario MD [address] [place] [phone] PCP - General 02/27/11 09/08/18 documented as of this encounter
--- OUTSIDE RECORDS SUMMARY | 2024-05-11 15:20 | XMS_ITS | Encounter Summary ---
Author Organization [facility] Address [address] [place] [address] Care Team Providers Care Reclamation Worker Name Role Phone Unavailable Primary Care Provider Unavailabl e Encounter Details Date Type Department Care Team (Late st Contact Info) Description 09/08/2000 Results Only [facility] [place] conversion [address] [place] [address] Cristobal Morales MD Social History Tobacco Use [...] Info) Description 06/29/2024 14:15 EST Office Visit [facility] Rheumatology [address] [place], [place] [address] Nyasia Warner MD 130 [facility] [address] [place] [address] documented as of this encounter [...] ? ZENY HENRIQUEZ ? Accession #: ? [id number] : ? 1980 (Age: 20) ??F ?Collect Date: ? 09/08/2000 Location: ? [facility] ? Receive Date: ? 09/10/2000 Provider: ?CRISTOBAL MORALES MD Copy to: ? Specimen/Source: ?ThinPrep Pap Test, Cervix/Endocervix Last Menstrual Period: ? /?/ Hormonal/Contracep tive Status: ? Yes ? SPECIMEN ADEQUACY ? Satisfactory for evaluation. GENERAL CATEGORIZATION ? Epithelial Cell Abnormality DESCRIPTIVE DIAGNOSIS ? High grade squamous intraepithelial lesion (HSIL). ? Document reviewed and electronically signed by: ? Margarita Calvert MD ? Report Date: ??09/18/2000 17:45 End of Report [facility] 09/08/2000 09/10/2000 us Cristobal Morales MD PATHOLOGY ORDERABLES Final Res ult [facility] [address] [place] [address] documented in this encounter Visit Diagnoses Not on filedocumented in this encounter
--- OUTSIDE RECORDS SUMMARY | 2024-05-11 15:20 | XMS_ITS | Encounter Summary ---
Author Organization [facility] Address [address] [place] [address] Care Team Providers Care Patient Services Clerk Name Role Phone Unavailable Primary Care Provider Unavailabl e Encounter Details Date Type Department Care Team (Late st Contact Info) Description 10/10/1999 Results Only [facility] [place] conversion [address] [place] [address] Cristobal Morales MD Social History Tobacco Use [...] EST Office Visit [facility] Rheumatology [address] [place], [place] [address] Nyasia Warner MD 130 [facility] [address] [place] [address] documented as of this encounter [...] ? ZENY HENRIQUEZ ? Accession #: ? [id number] : ? 1980 (Age: 19) ??F ?Collect Date: ? 10/10/1999 Location: ?Receive Date: ? 10/10/1999 Provider: ?CRISTOBAL MORALES MD Copy to: ?CRISTOBAL MORALES MD ? Specimen/Source: ?Reservation Manager ThinPrep Last Menstrual Period: ? GYNECOLOGIC ??CYTOPATHOLOGY ??REPORT Name: ZENY HENRIQUEZ ? [facility] : 1980 ?? 19Y F ?Client ID: ?? SS#: ? Clinician: Meli MORALES MD Location: [facility] ??Copy to: ?? Specimen: ?Reservation Manager ThinPrep ? Source: Cervix/Endocervix ?Collected: 10/08/99 ? [...] Cazares M.D. ? Report Date: ?? 10/22/1999 [employer] Archived Tests - Final Diagnosis Text Field: Clinical History : ; Pap LGSIL ? Document reviewed and electronically signed by: ? Conversion ? Report Date: ??10/22/1999 00:00 End of Report [facility] 10/10/1999 13:5 9 EDT 10/10/1999 14:00 EDT us Cristobal Morales MD PATHOLOGY ORDERABLES Final Res ult Performing Organization Address City/State/[facility] de Phone Number [facility] [address] [place] [address] documented in this encounter Visit Diagnoses Not on filedocumented in this encounter
--- OUTSIDE RECORDS SUMMARY | 2024-05-11 15:20 | XMS_ITS | Encounter Summary ---
Author Organization [facility] Address [address] [place] [address] Care Team Providers Care Youth Associate Name Role Phone Unavailable Primary Care Provider Unavailabl e Encounter Details Date Type Department Care Team (Late st Contact Info) Description 10/20/2000 Results Only [facility] conversion [address] [place] [address] Cristobal Morales MD Social History Tobacco Use [...] Info) Description 06/29/2024 14:15 EST Office Visit [facility] Rheumatology [address] [place], [place] [id number] Nyasia Warner MD [address] [facility] [address] [place] [address] documented as of this encounter [...] ? ZENY HENRIQUEZ ? Accession #: ? [id number] : ? 1980 (Age: 20) ??F ?Collect [...] End of Report [facility] 10/20/2000 10/22/2000 us Cristobal Morales MD PATHOLOGY ORDERABLES Final Res ult [facility] [address] [place] [address] documented in this encounter Visit Diagnoses Not on filedocumented in this encounter
--- OUTSIDE RECORDS SUMMARY | 2024-05-11 15:20 | XMS_ITS | Encounter Summary ---
Author Organization [facility] Address [address] [place] [address] Care Team Providers Care Ditto Machine Operator Name Role Phone Ricardo Candelario MD Primary Care Provider [phone] Reason for Visit * Reason Onset Date Comments Results 03/10/2011 Results 03/14/2011 PATIENT CALLED T O GET RESULTS. Results 03/17/2011 Patient is reque sting biopsy results. Encounter Details Date Type Department Care Team (Late Contact Info) Description 03/10/2011 Telephone [facility] Dermatology [address]th [address] [id number] Nyasia Guthrie MD [address] [place] [address], [address] [place] [address] Results; Results (PATIENT CALLED TO [...] Encounter - Nyasia Guthrie MD - 03/17/2011 3435 EDT I called Cathy back and let [...] Nyasia Guthrie MD * Telephone Encounter - aZ Aquino - 03/10/2011 0940 EDT Patient is looking for her results Za Reyes Kenia 03/10/2011 9:40 documented in this encounter Plan of Treatment Upcoming Encounters Date Type Department Care Team (Late st Contact Info) Description 06/29/2024 14:15 EST Office Visit [facility] Rheumatology [address] [place] [phone] Nyasia Warner MD [address] [place] [address] [place] [phone] documented as of this encounter Visit Diagnoses Not on filedocumented in this encounter Care Teams Ditto Machine Operator Relationship Specialty Start Date End Date Ricardo Candelario MD [address] [place] [address] [address] [place] [address] PCP - General 02/27/11 09/08/18 documented as of this encounter
--- OUTSIDE RECORDS SUMMARY | 2024-05-11 15:20 | XMS_ITS | Encounter Summary ---
Author Organization [facility] Address [address] [place] [address] Care Team Providers Care Rig Builder Helper Name Role Phone Ricardo Candelario MD Primary Care Provider [phone] Encounter Details Date Type Department Care Team (Latest Contact Info) Description 05/23/2011 13:52 EST - 05/23/2011 23:59 EST Hospital Encounter [address] [address] Unknown, Provider, MD Discharge Disposition: Home or Self Care [...] Info) Description 06/29/2024 14:15 EST Office Visit [facility] Rheumatology [address] [place] [address] Nyasia Warner MD 130 [facility] [address] [place] [phone] documented as of this encounter Visit Diagnoses Not on filedocumented in this encounter Care Teams Rig Builder Helper Relationship Specialty Start Date End Date Ricardo Candelario MD [address] [facility] [address] [place] [address] PCP - General 02/27/11 09/08/18 documented as of this encounter
--- OUTSIDE RECORDS SUMMARY | 2024-05-11 15:20 | XMS_ITS | Encounter Summary ---
Author Organization [facility] Address [address] [place] [address] Care Team Providers Care Air Liaison And Special Staff Name Role Phone Ricardo Candelario MD Primary Care Provider [phone] Reason for Visit * Reason Comments Rash vulvar Encounter Details Date Type Department Care Team (Late st Contact Info) Description 02/28/2011 16:15 EDT Office Visit [facility] Dermatology 5th [address] [phone] Idania Osei MD [address] [place] [phone] Unknown, Provider, Nyasia Buitrago MD [address] [place] [phone] Rash and other nonspecific skin eruption (Primary [...] Refills Last Filled Start Date End Date cephALEXin (KEFLEX) 500 mg capsule Take 1 [...] MD * Nyasia Guthrie MD - 03/03/2011 0861 EDTQuick Note: I contacted Cathy and she [...] MD * Nyasia Guthrie MD - 02/28/2011 0975 EDT S: Cathy is here at the [...] but was seen in the ER in [place] for the rash and they told her [...] BIOPSY PROCEDURE NOTE PATIENT INFORMATION: Cathy Chow [id number] 1980 DATE OF PROCEDURE: 02/28/2011 SURGEON: Nyasia [...] microbiology for tissue culture. Nyasia Guthrie MD Weight Count Operator of Dermatology & Mohs Surgery [facility] 02/28/2011 16:45 * Susannah Rothman - 02/28/2011 [...] Info) Description 06/29/2024 14:15 EST Office Visit [facility] Rheumatology [address] [place] [address] Nyasia Warner MD 130 [facility] [address] [address] [place] [phone] documented as of this encounter Procedures Procedure [...] (specimen) 02/28/2011 16:33 EDT 02/28/2011 17:12 EDT us Idania Osei MD MICROBIOLOGY - GENERAL OR DERABLES Final Result [facility] [address] [place] [address] * BACTERIAL CULTURE/SMEAR, TISSUE (02/28/2011 16:33 EDT) Specimen Description Tissue Biopsy Right Vulva [facility] Gram Smear Result Mod Polys No bacteria seen [facility] Result Few STAPHYLOCOCCUS COAGULASE NEGATIVE, NOT LUGDUNENSIS [facility] Report Status Final 03/03/2011 [facility] [...] Nyasia Guthrie MD MICROBIOLOGY - GENERAL ORDERABLES Final Result Performing Organization Address [facility] de Phone Number [facility] [address] [place] [address] * FUNGUS CULTURE/SMEAR, TISSUE (02/28/2011 16:33 EDT) Specimen Description Tissue Biopsy Right Vulva [facility] Fungal Smear No fungi seen [facility] Result Rare TRICHOPHYTON SPECIES This mould is a member of the dermatophytes, a group of fungi that affect the skin, nails, and hair (Trichophyton, Microsporum, Epidermophyton). [facility] Report Status 04/01/2011 Final [facility] Tissue specimen (specimen) 02/28/2011 16:33 EDT 02/28/2011 17:04 EDT Nyasia Guthrie MD MICROBIOLOGY - GENERAL ORDERABLES Final Result Performing Organization Address [facility] Co de Phone Number [facility] [address] [place] [address] * BACTERIAL CULTURE/SMEAR, OTHER (02/28/2011 16:30 EDT) Specimen Description Vulva Right PUS Specimen submitted on a swab [facility] Gram Smear Result Rare Polys No bacteria seen [facility] Result Rare Usual skin nevaeh Smear suggests minimal or no inflammation. [facility] Report Status Final 03/02/2011 [facility] Specimen of unknown material (specimen) 02/28/2011 16:30 EDT 02/28/2011 17:14 EDT us Nyasia Guthrie MD MICROBIOLOGY - GENERAL ORDERABLES Final Result [facility] [address] [place] [address] documented in this encounter Visit Diagnoses Diagnosis [...] documented as of this encounter Care Teams Air Liaison And Special Staff Relationship Specialty Start Date End Date Ricardo Candelario MD [address] [place] [address] PCP - General 02/27/11 09/08/18 documented as of this encounter
--- OUTSIDE RECORDS SUMMARY | 2024-05-11 15:20 | XMS_ITS | Encounter Summary ---
Author Organization [facility] Address [address] [place] [address] Care Team Providers Care Medical Office Technology Instructor Name Role Phone Unavailable Primary Care Provider Unavailabl e Encounter Details Date Type Department Care Team (Late st Contact Info) Description 04/06/2001 Results Only [facility] conversion [address] [place] [address] Cristobal Morales MD Social History Tobacco Use [...] Info) Description 06/29/2024 14:15 EST Office Visit [facility] Rheumatology [address] [place], [place] [address] Nyasia Warner MD 130 [facility] [address] [place] [address] documented as of this [...] ? ZENY HENRIQUEZ ? Accession #: ? [id number] : ? 1980 (Age: 21) ??F ?Collect [...] End of Report [facility] 04/06/2001 04/08/2001 us Cristobal Morales MD PATHOLOGY ORDERABLES Final Res ult [facility] [address] [place] [address] documented in this encounter Visit Diagnoses Not on filedocumented in this encounter
--- OUTSIDE RECORDS SUMMARY | 2024-05-11 15:20 | XMS_ITS ---
Author Organization Unknown Address [address] [place] [phone] Phone Care Team Providers Care Central Sterilization Technician Name Role Phone ARMIDA Olson Attending Unavailable Results MM SCREENING BILAT MAMMO W T JASPAL W CAD - Completed: 10/02/2023 14:59 LOINC: [facility] RADIOLOGY [place], [place] [address] PACS PROPULSION MACHINERY SERVICE ENGINEER REPORT Patient Name: ZENY SAM MRN: Sex: : Age: [id number] F 1980 43 Account: Accession: Admit: StayType: [id number] 10/02/2023 O/P Ordered: Order ID: Submitted: Ordering Provider: 10/02/2023 14:42 [id number] KT DHRUV HUFFMAN Completed: Technologist: Resulted: 10/02/2023 [...] follow-up screening mammography is recommended, as per [place] [employer] guidelines. BI-RADS Category 1: Negative [...] PELVIS RT * - Completed: 10/02/2023 15:07 [facility]: [facility] RADIOLOGY [place], [place] [address] PACS PROPULSION MACHINERY SERVICE ENGINEER REPORT Patient Name: ZENY SAM MRN: Sex: : Age: [id number] F 1980 43 Account: Accession: Admit: StayType: [id number] 10/02/2023 O/P Ordered: Order ID: Submitted: Ordering Provider: 10/02/2023 14:42 [id number] KT DHRUV HUFFMAN Completed: Technologist: Resulted: 10/02/2023 [...] em Smoking History Never smoker (Never Smoked) [id number] SNOMED CT Sex Female Hospital Discharge Instructions [...] Code Code Sys tem Screening mammography 10/02/2023 [id number] SNOMED -CT Personal Care Team Section Performer Name Performer Role Active Date Inactive Da marta
--- OUTSIDE RECORDS SUMMARY | 2024-05-11 15:20 | XMS_ITS | Encounter Summary ---
Author Organization [facility] Address [address] [place] [address] Care Team Providers Care Nuclear Equipment Research Engineer Name Role Phone Ricardo Candelario MD Primary Care Provider [phone] Encounter Details Date Type Department Care Team (Late st Contact Info) Description 04/05/2015 8:06 EDT - 04/05/2015 11:00 EDT Hospital Encounter [facility] Endoscopy Outpatient [address] [place] [address] Ash Villagomez MD PhD 111 [facility] 5 [place] [phone] Dysphagia, unspecified dysphagia Discharge Disposition: Home or [...] Info) Description 06/29/2024 14:15 EST Office Visit [facility] Rheumatology [address] [place] [address] Nyasia Warner MD 130 [facility] [address] [address] [place] [address] documented as of this encounter Procedures Procedure Name Priority Date/Time Associated Diagnosis Comments PROCEDURE REPORTS - SCANNED 04/06/2015 8:06 EDT documented in this encounter Results * PROCEDURE REPORTS - SCANNED (04/06/2015 8:06 EDT) 04/06/2015 8:06 EDT us Scan 2 Medicine Man PROCEDURE/MINOR SURGICAL OR DERABLES Final Result documented in this encounter Visit Diagnoses Diagnosis Dysphagia, unspecified dysphagia documented in this encounter Orders Imaging Orders Without Results Count Last Order ed Date First Ordered Date ESOPHAGEAL MANOMETRY 1 04/05/2015 Transfer Count Last Ordered Date First Orde red Date NOTIFY PPS OF DISCHARGE COMPLETE 1 04/05/20 documented in this encounter Care Teams Nuclear Equipment Research Engineer Relationship Specialty Start Date End Date Ricardo Candelario MD [address] [place] [address] PCP - General 02/27/11 09/08/18 documented as of this encounter
--- OUTSIDE RECORDS SUMMARY | 2024-05-11 15:20 | XMS_ITS | Encounter Summary ---
Author Organization [facility] Address [address] [place] [address] Care Team Providers Care Stemhole Borer And Topper Name Role Phone Ricardo Candelario MD Primary Care Provider [phone] Reason for Visit * Reason Onset Date Comments Other 03/03/2011 Encounter Details Date Type Department Care Team (Late st Contact Info) Description 03/03/2011 Telephone [facility] Dermatology 5th [address] [phone] Nyasia Guthrie MD [address] [place] [address], [address] [place] [phone] Other Social History Tobacco Use Types Packs/Day [...] Encounter - Nyasia Guthrie MD - 03/03/2011 8[address] with [address] Mukherjee about [...] Info) Description 06/29/2024 14:15 EST Office Visit [facility] Rheumatology [address] [place] [address] Nyasia Warner MD 130 [facility] [address] [address] [place] [address] documented as of this encounter Visit Diagnoses Not on filedocumented in this encounter Care Teams Stemhole Borer And Topper Relationship Specialty Start Date End Date Ricardo Candelario MD [address] [place] [address] PCP - General 02/27/11 09/08/18 documented as of this encounter
--- OUTSIDE RECORDS SUMMARY | 2024-05-11 15:20 | XMS_ITS | Encounter Summary ---
Author Organization [facility] Address [address] [place] [address] Care Team Providers Care Heating And Blending Supervisor Name Role Phone Unavailable Primary Care Provider Unavailabl e Encounter Details Date Type Department Care Team (Late st Contact Info) Description 11/15/2005 14:24 EDT - 11/16/2005 11:59 EDT Hospital Encounter [facility] Neurosurgery Unit [address] [place] [address] Dean Andrade MD [address] [place] [phone] Caridad Tabor MD 111 [facility], [facility] 1 [place] [address] Discharge Disposition: Home or Self [...] Info) Description 06/29/2024 14:15 EST Office Visit [facility] Rheumatology [address] [place], [place] [address] Nyasia Warner MD 130 [facility] [address] [place] [phone] documented as of this encounter Procedures Procedure [...] left sphenotemporal buttress. D: ??11/16/05 T: ??11/18/05 /[facility]. Procedure Note Koby Bradley MD - 01/06/2009 [...] and extending into the left sphenotemporal buttress. /[facility]. us Dean Andrade MD IMG CT ORDERABLES Final Resu lt * PTT (11/16/2005 5:28 EDT) PTT 29 20 - 35 secs [facility] Comment:Therapeutic Heparin range: 70-105 seconds 11/16/2005 5:28 EDT 11/16/2005 5:50 EDT us Dean Andrade MD HEMATOLOGY & PF4 ORDERABLES Final Result [facility] [address] [place] [address] * PROTIME (11/16/2005 5:28 EDT) Pro Time 14.6 12.0 - 15.0 secs [facility] I.N.R. 1.1 0.9 - 1.1 Ratio [facility] Comment: Moderate Intensity Coumadin INR = 2.0-3.0 Adjustments in anticoagulant therapy dose should be based upon the INR and NOT the Pro Time. 11/16/2005 5:28 EDT 11/16/2005 5:50 EDT Dean Andrade MD HEMATOLOGY & PF4 ORDERABLES Final Result Performing Organization Address [facility] Co de Phone Number [facility] [address] [place] [address] * (ABNORMAL) ELECTROLYTES (11/16/2005 5:28 EDT) [facility] Sodium 135(L) 136 - 145 mEq/L [facility] Comment:Slight hemolysis Potassium 4.4 3.5 - 5.0 mEq/L [facility] Comment: Hemolysis may elevate potassium result. Slight hemolysis Chloride 111(H) 96 - 110 mEq/L [facility] Comment:Slight hemolysis CO2 20(L) 24 - 32 mEq/L [facility] Comment:Slight hemolysis 11/16/2005 5:28 EDT 11/16/2005 5:50 EDT Dean Andrade MD CHEMISTRY & BLOOD GAS ORDERA BLES Final Result Performing Organization Address City/[facility] Co de Phone Number [facility] [address] [place] [address] * CREATININE (11/16/2005 5:28 EDT) Pathologist [facility] Creatinine 0.7 0.7 - 1.5 mg/dl [facility] Comment:Slight hemolysis 11/16/2005 5:28 EDT 11/16/2005 5:50 EDT Dean Andrade MD HISTORICAL LAB FOR SQ LOAD F inal Result [facility] [address] [place] [address] * (ABNORMAL) HEMAGRAM AND DIFFERENTIAL (11/16/2005 5:28 EDT) WBC 8.41 4.0 - 12.4 K/cmm [facility] RBC 4.11 3.86 - 5.04 M/cmm [facility] Hemoglobin 12.5 11.6 - 15.2 gm/dl [facility] HCT 36.1 34.9 - 44.4 % [facility] MCV 88 81 - 98 fl [facility] MCH 30.4 26.7 - 33.3 pg [facility] [...] [facility] Type of Diff: Automated [facility] 11/16/2005 5:28 EDT 11/16/2005 5:50 EDT us Dean Andrade MD PACKAGES & DNA PROBE ORDERAB LES Final Result Performing Organization Address City/[facility]/ZIP Co de Phone Number [facility] [address] [place] [address] * BUN (11/16/2005 5:28 EDT) BUN 10 10 - 26 mg/dl [facility] Comment: Results may be affected due to hemolysis. Slight hemolysis 11/16/2005 5:28 EDT 11/16/2005 5:50 EDT us Dean Andrade MD CHEMISTRY & BLOOD GAS ORDERA BLES Final Result Performing Organization Address [facility] de Phone Number [facility] [address] [place] [address] * SHOULDER 1 VIEW (11/15/2005 15:14 EDT) [...] study may be performed for further evaluation. /[facility] I have personally reviewed the [...] study may be performed for further evaluation. /[facility] I have personally reviewed the images and the above interpretation and agree with the findings. us Idania Hair MD IMG DIAGNOSTIC IMAGING ORDERABL ES Final Result * (ABNORMAL) URINE MICROSCOPIC (11/15/2005 14:33 EDT) WBC, UA 1 to 5 0 - 5 /HPF [facility] RBC, UA 1 to 5 0 - 5 /HPF [facility] Squam Epithel, UA Many(A) NS /HPF [facility] Renal Epithel, UA None seen NS /HPF [facility] Bacteria, UA None seen NS /HPF [facility] Crystals, UA None seen /HPF [facility] Hyaline Casts, UA None seen /LPF [facility] UA Comment Microscopic results are unreliable on urines unrefrig >2hrs or refrig >8hrs. [facility] 11/15/2005 14:3 3 EDT 11/15/2005 14:33 EDT Dean Andrade MD URINALYSIS ORDERABLES Final Result Performing Organization Address [facility] de Phone Number [facility] [address] [place] [address] * (ABNORMAL) URINALYSIS (11/15/2005 14:33 EDT) Color, UA Yellow [facility] Clarity, UA Clear [facility] Glucose, UA Norm NORM [facility] Bilirubin, UA Neg NEG [facility] Ketones, UA Small(A) NEG [facility] Specific [place], Urine 1.025 1.005 - 1.02 [facility] Blood, UA Neg NEG [facility] pH, UA 6.5 5.0 - 9.0 [facility] Protein, UA 2+(A) NEG [facility] Urobilinogen, UA Norm NORM mg/dL [facility] Nitrite, UA Neg NEG [facility] Leuk Esterase Neg NEG [facility] 11/15/2005 14:3 3 EDT 11/15/2005 14:33 EDT Dean Andrade MD URINALYSIS ORDERABLES Final Result Performing Organization Address [facility] Co de Phone Number [facility] [address] [place] [address] * PELVIS 1 OR 2 VIEWS (11/15/2005 [...] or dislocation in the pelvis or chest. /[facility] I have personally reviewed the [...] or dislocation in the pelvis or chest. /[facility] I have personally reviewed the images and the above interpretation and agree with the findings. us Caridad Tabor MD IMG DIAGNOSTIC IMAGING ORDERABL ES Final Result * CHEST PA AND LATERAL (11/15/2005 13:48 [...] or dislocation in the pelvis or chest. /[facility] I have personally reviewed the [...] or dislocation in the pelvis or chest. /[facility] I have personally reviewed the images and the above interpretation and agree with the findings. us Caridad Tabor MD IMG DIAGNOSTIC IMAGING ORDERABL ES Final Result * (ABNORMAL) PROFILE TRAUMA PACK - MAJOR (BLOOD BANK NOT INCLUDED) (11/15/2005 13:25 EDT) BUN 10 10 - 26 mg/dl [facility] Calcium 8.8 8.5 - 10.5 mg/dl [facility] Calculated Calcium 8.9 8.5 - 10.5 mg/dl [facility] WBC 13.56(H) 4.0 - 12.4 K/cmm [facility] RBC 4.59 3.86 - 5.04 M/cmm [facility] Hemoglobin 13.8 11.6 - 15.2 gm/dl [facility] HCT 40.0 34.9 - 44.4 % [facility] MCV 87 81 - [address] [facility] MCH 30.0 26.7 - 33.[address] [facility] MCHC 34.5 32.1 - 35.9 gm/dl [facility] PLT 350(H) 141 - 320 K/cmm [facility] RDW-CV 12.5 11.7 - 14.6 % [facility] CK 332(H) 30 - 135 U/L [facility] MB 3.7 0 - 5.0 ng/ml [facility] CK-MB Index Not calculated , normal MB. 0 - 2.5 [facility] Creatinine 0.7 0.7 - 1.5 mg/dl [facility] Neutrophils 92.0(H) 45.5 - 79.7 % [facility] Lymphocytes 7.0(L) 15.0 - 46.8 % [facility] Monocytes 1.0(L) 1.8 - 12.0 % [facility] ABS Neutrophils 12.47(H) 2.20 - 8.85 K/cmm [facility] ABS Lymphs 0.95(L) 1.09 - 3.30 K/cmm [facility] ABS Monocytes 0.14 0.1 - 0.8 K/cmm [facility] RBC Morphology [facility] Type of Diff: Manual [facility] Lipase 33 0 - 250 U/L [facility] Albumin 4.3 3.4 - 4.9 g/dl [facility] Total Protein 7.7 6.5 - 8.3 g/dl [facility] Total Alkaline Phosphatase 78 38 - 126 U/L [facility] ALT 22 9 - 52 U/L [facility] AST 33 15 - 46 U/L [facility] Unconjugated Bilirubin 0.6 0.1 - 1.1 mg/dl [facility] Conjugated Bilirubin 0.0 0.0 - 0.3 mg/dl [facility] Bilirubin, Total <0.5 0.2 - 1.3 mg/dl [facility] Sodium 138 136 - 145 mEq/L [facility] Potassium 4.4 3.5 - 5.0 mEq/L [facility] Chloride 106 96 - 110 mEq/L [facility] CO2 23(L) 24 - 32 mEq/L [facility] Magnesium 1.8 1.7 - 2.8 mg/dl [facility] Phosphorus 4.6(H) 2.5 - 4.5 mg/dl [...] 11/15/2005 13:2 5 EDT 11/15/2005 13:38 EDT us Default Emergency MD PACKAGES & DNA PROBE ORDERA BLES Final Result [facility] [address] [place] [address] * CT HEAD WO CONTRAST (11/15/2005 13:24 [...] hemorrhage or midline shift. D 11/15/05 T 11/18/05mindi us Caridad Tabor MD IMG CT ORDERABLES Final Result documented in this encounter Visit Diagnoses Not on filedocumented in this encounter
[2024-05-11 21:49] LABS: TSH (W/Ref FT4) 2.15 uIU/mL (0.36-3.74); Vitamin B12 432 pg/mL (193-986)
== END 2024-05-11 15:17 | disposition home or self-care (01) ==
LOC: NCHCN 15:16
PROVIDERS: PCP Nurse Practitioner Family; Visit Provider Internal Medicine
DX: R53.83 Other fatigue (principal)
CPT/HCPCS: 82607; 84443

== ENCOUNTER 2024-11-01 11:28 | Outpatient (REF) | payer MEDICAID, SELFPAY ==
[2024-11-01 17:16] LABS: Anion Gap 7.7 mmol/L (3-11); BUN 7 mg/dL (7-18); CO2 27.3 mmol/L (21.0-32.0); CREATININE 0.8 mg/dL (0.55-1.02); Calcium 9.1 mg/dL (8.5-10.1); Chloride 105 mmol/L (98-107); Estimated GFR 92.54 (mL/min/1.73m2); Glucose 90 mg/dL (74-106); Potassium 3.8 mmol/L (3.5-5.1); Sodium 140 mmol/L (136-145); TSH 2.54 uIU/mL (0.36-3.74)
[2024-11-02 05:25] LABS: Calculated LDL 114 mg/dL (<100); Cholesterol 182 mg/dL (<200); HDL Cholesterol 45 mg/dL (>or=50); Triglyceride 115 mg/dL (<150); Vitamin D 25 Total 26 ng/mL (30-100)
== END 2024-11-01 11:29 | disposition home or self-care (01) ==
LOC: NCHCN 11:28
PROVIDERS: PCP Nurse Practitioner Family; Visit Provider Internal Medicine
DX: R53.83 Other fatigue (principal); R20.2 Paresthesia of skin
CPT/HCPCS: 80048; 80061; 82306; 84443

== ENCOUNTER 2024-11-07 12:41 | Outpatient (REF) | payer MEDICAID, SELFPAY ==
[2024-11-07 15:12] LABS: HCT 40.5 % (36.0-46.0); HGB 13.6 g/dL (11.2-15.7); MCH 30.2 pg (27.0-33.0); MCHC 33.6 % (32.0-36.0); MCV 90 fL (80-95); MPV 9.6 fL (8.0-11.0); Platelet Count 356 10^3/uL (130-400); RDW 12.5 % (11.7-14.6); WBC 5.91 10^3/uL (4.4-10.8)
[2024-11-07 15:42] LABS: Ferritin 63 ng/mL (8-252)
== END 2024-11-07 12:42 | disposition home or self-care (01) ==
LOC: NCHCN 12:41
PROVIDERS: PCP Nurse Practitioner Family; Visit Provider Internal Medicine
DX: G47.9 Sleep disorder, unspecified (principal)
CPT/HCPCS: 85027; 82728